=== PATIENT | female | born 1950 | race Caucasian/White ===

== ENCOUNTER 2017-08-08 09:26 | Day surgery (SDC) | payer MEDICARE ==
[2017-08-07 08:41] VITALS: BMI 36.3
[~2017-08-08 09:26] MED LIST: ALBUTEROL NEB (CONC) 2.5 MG/0.5 ML INHALATION ONE; ATROPINE SULFATE 0.4 MG/ML 1 ML VIAL IM ONE; LACTATED RINGERS 1,000 ML IV ONE; LACTATED RINGERS 1,000 ML IV SCH; LIDOCAINE 2% (PF) 20 MG/ML 10 ML AMP INHALATION ONE
[2017-08-08 09:51] VITALS: RESP 16; TEMP 97.8
[2017-08-08] MEDS ORDERED: GLYCOPYRROLATE 0.2 MG/ML 2 ML VIAL ONE (10:30)
[2017-08-08] MEDS ORDERED: LIDOCAINE 1% INJ 10MG/ML (20 ML MDV) ONE (10:30)
[2017-08-08] MEDS ORDERED: PROPOFOL 10 MG/ML 20 ML VIAL IV ONE (10:30)
[2017-08-08] MEDS ORDERED: MIDAZOLAM 2 MG/2 ML VIAL ONE (10:30)
[2017-08-08] MEDS ORDERED: KETAMINE 10 MG/ML 20 ML VIAL ONE (10:30)
[2017-08-08] MEDS ORDERED: LIDOCAINE 2% INJ 20 MG/ML INTRATRACH ONE (10:51)
[2017-08-08 11:17] VITALS: BP 121/74; PULSE 83
--- NOTE | 2017-08-08 11:31 | PCN ---
PROCEDURE NOTE PROCEDURE: Bronchoscopy, airway examination, therapeutic lavage, BAL right middle lobe. PREOPERATIVE DIAGNOSIS: Cough. POSTOPERATIVE DIAGNOSIS: Cough and asthma. Operators are Dr. Bruner and Dr. Tucker. The patient's procedure was done in room #2. There was no immediate complication. There was universal timeout. There was informed consent. After the patient was adequately sedated and being fully monitored, the bronchoscope was inserted through the right nostril. It passed through the right nasopharynx into the oropharynx. The hypopharynx was identified and topicalized. The hypopharyngeal structures appeared normal including anterior commissure, true cords, false cords, arytenoids, piriform sinuses, right and left vallecula and epiglottis. After topicalization, the bronchoscope was placed through the glottic opening into the trachea. Trachea appeared normal. Trachea was topicalized. Trachea shazia was sharp. The right and left mainstem were topicalized. Right upper lobe and its 3 segments, right middle lobe and its 2 segments, right lower lobe and its 5 segments, the left upper lobe proper and its 2 segments, the lingual and its 2 segments, and the left lower lobe and its 4 segments all were found to be normal. There was no endobronchial masses or tumors. There was minimal bronchitis. There was minimal bronchial mucosal erythema, hyperemia. There was no dominant mass. No secretions noted. The bronchoscope was then wedged into the right middle lobe. The BAL took place. The patient tolerated the procedure well. The patient will be recovered. The bronchoscope was withdrawn. MMODL / IJN: [id number] /
[2017-08-08 16:22] LABS: RBC, Body Fluid 12850 /uL
== END 2017-08-08 12:08 | disposition home or self-care (01) ==
LOC: ORWHC2ENDO 09:26
PROVIDERS: ATTEND Internal Medicine Critical Care Medicine
DX: R05 Cough (principal); J45.909 Unspecified asthma, uncomplicated; I10 Essential (primary) hypertension; E78.5 Hyperlipidemia, unspecified; K57.92 Diverticulitis of intestine, part unspecified, without perforation or abscess without bleeding; H40.9 Unspecified glaucoma; Z79.899 Other long term (current) drug therapy; Z79.51 Long term (current) use of inhaled steroids; Z79.82 Long term (current) use of aspirin; Z88.0 Allergy status to penicillin; Z88.8 Allergy status to other drugs, medicaments and biological substances; Z91.041 Radiographic dye allergy status
CPT/HCPCS: 94640; 87798 ×4; 87496; 87498; 87529 ×2; 88108; 88305; 89050; 87252; 87502; 87070; 87205; 87116; 87102; 87206; 31624; J2001 ×3; J2250; J0461; J2704

== ENCOUNTER 2018-03-15 10:05 | Day surgery (SDC) | payer MEDICARE ==
[2018-03-13 12:53] VITALS: BMI 34.5
[~2018-03-15 10:05] MED LIST changes: -ALBUTEROL NEB (CONC) 2.5 MG/0.5 ML INHALATION ONE; -ATROPINE SULFATE 0.4 MG/ML 1 ML VIAL IM ONE; -LACTATED RINGERS 1,000 ML IV ONE; -LIDOCAINE 2% (PF) 20 MG/ML 10 ML AMP INHALATION ONE
[2018-03-15] MEDS ORDERED: LIDOCAINE 1% 20 ML VIAL (10MG/ML) FOR IV START INTRADERMA ONE (11:00)
[2018-03-15 11:02] VITALS: TEMP 98.6
[2018-03-15] MEDS ORDERED: LIDOCAINE 1% INJ 10MG/ML (20 ML MDV) ONE (11:06)
[2018-03-15] MEDS ORDERED: PROPOFOL 10 MG/ML 20 ML VIAL IV ONE (11:06)
--- NOTE | 2018-03-15 11:28 | P.PCN ---
Date of Procedure: 03/15/18 Procedure(s) Performed: Brief history: Patient is a pleasant 68-year-old white female, scheduled for an elective upper endoscopy as well as colonoscopy as a part of evaluation of epigastric pain, intermittent rectal bleeding for the last 6 months duration. Procedure performed: Esophagogastroduodenoscopy with biopsy Colonoscopy Preoperative diagnosis: Epigastric pain Intermittent rectal bleeding Anesthesia: MAC Procedure: After informed consent was obtained from the patient was brought into the endoscopy unit and IV sedation was administered by anesthesia under continuous monitoring. Initially upper endoscopy was done. The Olympus GF 160 video endoscope was inserted inserted into the mouth and esophagus intubated without any difficulty and was gradually advanced into the stomach and duodenum and carefully examined. The bulb and second part of the duodenum appeared normal. The scope was then withdrawn into the stomach adequately insufflated with air and upon careful examination the antrum and body, cardia and fundus appeared normal. The scope was then withdrawn into the esophagus. The GE junction was located at 40 cm to the incisors. It appeared regular with no erythema erosions or ulcerations. Rest of the esophagus appeared normal. Patient tolerated the procedure well. At this time the patient continued to remain sedation. Initial digital rectal examination was normal. Olympus CF 160 video colonoscope was then inserted into the rectum and gradually advanced to the cecum without any difficulty. Careful examination was performed as the scope was gradually being withdrawn. The prep was excellent. The cecum, ascending colon, transverse colon, descending colon, sigmoid colon and rectum appeared normal. Anastomosis site was located at 50 cm from the anal verge. Scattered sigmoid diverticula seen. Retroflexion was performed in the rectum and small internal hemorrhoids were noted. Patient tolerated the procedure well. Impression: 1. Upper endoscopy revealed mild antral gastritis but no evidence of esophagitis or peptic ulcer disease 2. Colonoscopy revealed scattered sigmoid diverticulosis and small internal hemorrhoids. Recommendations: Findings of this examination were discussed with the patient as well as her family. She was advised to follow up the biopsy results. She can have a repeat screening colonoscopy in 10 years.
[2018-03-15 11:47] VITALS: BP 155/72; PULSE 70; RESP 18
--- NOTE | 2018-03-19 02:29 | CDI ---
Outpatient Documentation Clarification Form Date: 03/19/2018 CDS/[employer] Name: Trinidad Suárez Phone: If any questions, call Jasmyn Donato Cull Grader at [phone] Patient Name: Meghan Gates Admit Date: 03/15/2018 Discharge Date: 03/15/2018 ATTENTION: The [facility] Coding Staff appreciate your assistance in clarifying documentation. Please respond to the clarification below the line at the bottom and electronically sign. The [facility] Coding staff will review the response and follow-up if needed. Please note: Queries are made part of the Legal Health Record. If you have any questions, please contact the Cull Grader. Dear Juli Ellis In operative report, procedure performed states Esophagogastroduodenoscopy with biopsy, but in procedure description no supporting documentation for biopsy performed. Please clarify whether Esophagogastroduodenoscopy with biopsy has been performed, if done please add to the operative report. Thank you for your kind consideration. NARENDRA
--- NOTE | 2018-03-26 18:23 | CDI ---
Outpatient Documentation Clarification Form Date: 03/26/18 CDS/Pul[employer] Man Name: Christiana Olsen Phone: If any questions, call Jasmyn Donato Cleaning Supervisor at [phone] Patient Name: Meghan Gates Admit Date: 03/15/18 Discharge Date: 03/15/18 ATTENTION: The [facility] Coding Staff appreciate your assistance in clarifying documentation. Please respond to the clarification below the line at the bottom and electronically sign. The [facility] Coding staff will review the response and follow-up if needed. Please note: Queries are made part of the Legal Health Record. If you have any questions, please contact the Cleaning Supervisor. Dear Dr. Melendrez, What is the source of the GI bleed? Multiple coding resources that we are required to follow, state that the physician should identify a source and the certified coder may not assume. ICD-9-CM [facility], Second 2006, Page 13: Question: In the 2004 issue of [facility], it was advised that "the combination codes describing hemorrhage should not be assigned unless the physician identifies a causal relationship." This information superseded previous advice provided in 1991. If, however, a patient presents with GI bleeding where only one possible source is found, can the certified coder assume a causal relationship between the GI bleeding and the single finding (ulcer, gastritis, diverticulitis, etc.) or must the physician explicitly state that the GI bleeding is due to the single finding? Answer: The certified coder should not assume a causal relationship between gastrointestinal bleeding and a single finding such as a gastric ulcer, gastritis, diverticulitis , etc. The physician must identify the source of the bleeding and link the clinical findings from the colonoscopy or upper endoscopy, since these findings may be unrelated to the bleeding. ICD-9-CM, 2004, Page: 17-18: Question: A patient presents with GI bleeding and undergoes both an EGD with biopsy and colonoscopy. Results reveal multiple findings including gastritis, duodenitis, esophagitis, diverticulosis (of colon), and colon polyp. The physician does not link the GI bleeding with these conditions nor does the physician state that the GI bleeding is not due to these conditions. What is the correct code assignment for these conditions? Answer: Query the physician to determine whether the GI bleeding was caused by any of the endoscopic findings (e.g., gastritis, duodentitis, esophagitis, diverticulosis, and/or polyp). Assign code 578.9, Hemorrhage of gastrointestinal tract, unspecified, as the principal diagnosis, if the physician does not establish a causal relationship between the gastrointestinal bleeding and the multiple findings. Codes 535.50, Unspecified gastritis and gastroduodenitis, without hemorrhage, 535.60, Duodenitis, without hemorrhage, 530.10, Esophagitis, unspecified, 562.10, Diverticulosis of colon (without mention of hemorrhage), and 211.3, Benign neoplasm of other parts of digestive system, Colon, should be assigned as additional diagnoses. The combination codes describing hemorrhage should not be assigned unless the physician identifies a causal relationship. If the documentation provides more specific information and the bleeding is linked to a specific condition, assign the appropriate combination code with bleeding. Assign code 45.16, Esophagogastroduodenoscopy [EGD] with closed biopsy, and code 45.23, Colonoscopy , for the procedures performed. This current information supersedes advice previously published in [facility], Second Quarter 1991, pages 8-9. Thank you for your kind consideration. Bleeding likely from internal hemorrhoids Dr.K.Tumma MACKEY
== END 2018-03-15 12:24 | disposition home or self-care (01) ==
LOC: ORWHC2ENDO 10:05
PROVIDERS: ATTEND Internal Medicine Gastroenterology
DX: K29.50 Unspecified chronic gastritis without bleeding (principal); B96.81 Helicobacter pylori [H. pylori] as the cause of diseases classified elsewhere; K57.30 Diverticulosis of large intestine without perforation or abscess without bleeding; K64.8 Other hemorrhoids; K21.9 Gastro-esophageal reflux disease without esophagitis; Z98.0 Intestinal bypass and anastomosis status; I10 Essential (primary) hypertension; E78.5 Hyperlipidemia, unspecified; J45.909 Unspecified asthma, uncomplicated; Z79.899 Other long term (current) drug therapy; Z79.51 Long term (current) use of inhaled steroids; Z79.1 Long term (current) use of non-steroidal anti-inflammatories (NSAID); Z79.2 Long term (current) use of antibiotics; Z88.0 Allergy status to penicillin; Z88.8 Allergy status to other drugs, medicaments and biological substances; Z91.041 Radiographic dye allergy status
CPT/HCPCS: 88305; 88342; 45378; 43239; J2001; J2704

== ENCOUNTER 2018-10-02 08:40 | Inpatient (IN) | payer MEDICARE ==
[2018-10-02] MEDS ORDERED: IPRATROPIUM-ALBUTEROL 3 ML NEB INHALATION STA (09:01)
[2018-10-02] MEDS ORDERED: SODIUM CHLORIDE 0.9% 500 ML 500 ML IV STA (09:01)
[2018-10-02] MEDS ORDERED: SODIUM CHLORIDE 0.9% 1,000 ML IV STA (09:01)
--- NOTE | 2018-10-02 10:18 | XR ---
EXAMINATION TYPE: XR chest 2V DATE OF EXAM: 10/02/2018 COMPARISON: NONE HISTORY: Difficulty breathing TECHNIQUE: Frontal and lateral views of the chest are obtained. FINDINGS: Interstitial prominence is seen throughout. Heart is mildly enlarged and there is tortuosi ty of the descending thoracic aorta. No sizable pleural effusion or pneumothorax is seen. No focal co nsolidation. IMPRESSION: Diffuse interstitial prominence may relate to mild interstitial edema that in combinatio n with cardiomegaly may be on the basis of congestive heart failure or alternatively interstitial pro minence could relate to atypical pneumonitis.
[2018-10-02 10:23] LABS: Basophils # (A) 0.1 k/uL (0-0.2); Basophils % (A) 1 %; Eosinophils # (A) 0.2 k/uL (0-0.7); Eosinophils % (A) 3 %; Lymphocytes # (A) 1.4 k/uL (1.0-4.8); Lymphocytes % (A) 21 %; MCH 28.8 pg (25.0-35.0); MCHC 31.7 g/dL (31.0-37.0); MCV 90.9 fL (80.0-100.0); Mean Platelet Volume 8.2; Monocytes # (A) 0.3 k/uL (0-1.0); Monocytes % (A) 5 %; Neutrophils # (A) 4.6 k/uL (1.3-7.7); Neutrophils % (A) 68 %; Platelet Count 205 k/uL (150-450); RBC 4.51 m/uL (3.80-5.40); RDW 14.1 % (11.5-15.5); WBC 6.7 k/uL (3.8-10.6)
[2018-10-02 10:30] LABS: ALT 71 U/L (9-52); AST 45 U/L (14-36); Albumin 3.8 g/dL (3.5-5.0); Alkaline Phosphatase 108 U/L (38-126); Anion Gap 11 mmol/L; Blood Urea Nitrogen 19 mg/dL (7-17); Carbon Dioxide 23 mmol/L (22-30); Chloride 109 mmol/L (98-107); Glucose 101 mg/dL (74-99); Magnesium 2.1 mg/dL (1.6-2.3); Sodium 143 mmol/L (137-145); Total Bilirubin 0.8 mg/dL (0.2-1.3); Total Protein 6.6 g/dL (6.3-8.2)
[2018-10-02 10:38] LABS: Partial Thromboplastin Time 21.7 sec (22.0-30.0); Prothrombin Time 10.5 sec (9.0-12.0)
[2018-10-02] MEDS ORDERED: DILTIAZEM DRIP BOLUS FROM BAG 1 MG SOLN IV ONE ×2 (10:42→13:33)
--- NOTE | 2018-10-02 10:42 | ED ---
SOB HPI - General Chief Complaint: Shortness of Breath Stated Complaint: XENIA Time Seen by Provider: 10/02/18 09:01 Source: patient, RN notes reviewed, old records reviewed Mode of arrival: ambulatory Limitations: no limitations - History of Present Illness Initial Comments: This is a 68-year-old female the ER for evaluation of severe shortness of breath 2-3 days. Progressively worsening. Patient has had a progressive COPD exacerbation asthma exacerbation and is not getting better for a few weeks now. She is doing increasing breathing treatments with no help. Last night noticed that she is having increasing shortness of breath mild diaphoresis no chest pain noted. Patient has no other recent change in medications denies drug or alcohol abuse. No fevers MD Complaint: shortness of breath, "asthma attack" -: days(s) (1) Severity: moderate Severity scale (1-10): 7 Consistency: constant Improves With: rest, bronchodilators Worsens With: exertion Known History Of: COPD, asthma Context: recent URI, anxiety Associated Symptoms: palpitations Treatments Prior to Arrival: none - Related Data Home Medications Medication Instructions Recorded Confirmed Albuterol Inhaler [Ventolin Hfa 2 puff INHALATION RT-Q4H 09/19/16 10/02/18 Inhaler] Albuterol Nebulized [Ventolin 2.5 mg INHALATION RT-Q6H PRN 09/19/16 10/02/18 Nebulized] Aspirin [Adult Low Dose Aspirin EC] 81 mg PO DAILY 09/19/16 10/02/18 Meloxicam 15 mg PO DAILY PRN 09/19/16 10/02/18 Montelukast [Singulair] 10 mg PO HS 09/19/16 10/02/18 amLODIPine [Norvasc] 5 mg PO DAILY 09/19/16 10/02/18 Biotin-7500mcg 7,500 mcg PO DAILY 08/07/17 10/02/18 Hydrochlorothiazide 12.5 mg PO DAILY 08/07/17 10/02/18 Loratadine [Claritin] 10 mg PO DAILY 08/07/17 10/02/18 Vitamin A Acetate [Vitamin A] 10,000 unit SL DAILY 08/07/17 10/02/18 Calcium Carbonate [Calcium] 1,200 mg PO DAILY 03/13/18 10/02/18 Cholecalciferol [Vitamin D3] 5,000 unit PO DAILY 03/13/18 10/02/18 Clindamycin [Cleocin] 600 mg PO ONCE PRN 03/13/18 10/02/18 Fish Oil/Dha/Epa [Fish Oil 1,200 1 cap PO DAILY 03/13/18 10/02/18 mg Fish Oil] Thera Tears 1 drop BOTH EYES BID PRN 03/13/18 10/02/18 Brimonidine Tartrate [Alphagan P 1 drops BOTH EYES BID 10/02/18 10/02/18 0.2% Ophth Soln] Budesonide/Formoterol Fumarate 2 puff INHALATION RT-BID 10/02/18 10/02/18 [Symbicort 80-4.5 Mcg Inhaler] Omeprazole [PriLOSEC] 20 mg PO AC-BID 10/02/18 10/02/18 Allergies Allergy/AdvReac Type Severity Reaction Status Date / Time atorvastatin [From Lipitor] Allergy joint Verified 10/02/18 10:05 pain/hives Iodinated Contrast- Oral and Allergy Dyspnea Verified 10/02/18 10:05 IV Dye [Iodinated Contrast Media - IV Dye] Penicillins Allergy Dyspnea Verified 10/02/18 10:05 clindamycin AdvReac Nausea Verified 10/02/18 10:05 Review of Systems ROS Statement: Those systems with pertinent positive or pertinent negative responses have been documented in the HPI. ROS Other: All systems not noted in ROS Statement are negative. Past Medical History Past Medical History: Asthma, Eye Disorder, GERD/Reflux, Hyperlipidemia, Hypertension, Neurologic Disorder, Osteoarthritis (OA) Additional Past Medical History / Comment(s): migraines, hx ulcer, hx diverticulitis, hx [place], Hx rheumatic fever, being treated for glaucoma History of Any Multi-Drug Resistant Organisms: None Reported Past Surgical History: Adenoidectomy, Bowel Resection, Breast Surgery, Ear Surgery, Joint Replacement, Orthopedic Surgery, Tonsillectomy Additional Past Surgical History / Comment(s): left ear drum surgery, hu breast reduction, left knee arthroscopy, colonoscopy, LT TKA, BILAT CATARACT SURGERY, GLAUCOMA SX Past Anesthesia/Blood Transfusion Reactions: Motion Sickness, Postoperative Nausea & Vomiting (PONV) Past Psychological History: No Psychological Hx Reported Smoking Status: Never smoker Past Alcohol Use History: Occasional Past Drug Use History: None Reported - Past Family History Sister(s) Family Medical History: Cancer Additional Family Medical History / Comment(s): sister of aneurysm, 3 nieces w/hx. aneurysm General Exam Limitations: no limitations General appearance: alert, in no apparent distress, anxious, in distress Head exam: Present: atraumatic, normocephalic, normal inspection Eye exam: Present: normal appearance, PERRL, EOMI. Absent: scleral icterus, conjunctival injection, periorbital swelling ENT exam: Present: normal exam, mucous membranes moist Neck exam: Present: normal inspection. Absent: tenderness, meningismus, lymphadenopathy Respiratory exam: Present: respiratory distress, wheezes, accessory muscle use, decreased breath sounds, prolonged expiratory. Absent: normal lung sounds bilaterally, rales, rhonchi, stridor Cardiovascular Exam: Present: tachycardia, irregular rhythm, normal heart sounds. Absent: systolic murmur, diastolic murmur, rubs, gallop, clicks GI/Abdominal exam: Present: soft, normal bowel sounds. Absent: distended, tenderness, guarding, rebound, rigid Extremities exam: Present: normal inspection, full ROM, normal capillary refill. Absent: tenderness, pedal edema, joint swelling, calf tenderness Back exam: Present: normal inspection Neurological exam: Present: alert, oriented X3, CN II-XII intact Psychiatric exam: Present: normal affect, normal mood Skin exam: Present: warm, dry, intact, normal color. Absent: rash Course Vital Signs 10/02/18 10/02/18 10/02/18 08:41 09:34 09:46 Temperature 97.8 F Pulse Rate 124 H 94 118 H Respiratory 22 Rate Blood Pressure 127/91 O2 Sat by Pulse 98 Oximetry 10/02/18 10:13 Temperature Pulse Rate 138 H Respiratory 22 Rate Blood Pressure 115/83 O2 Sat by Pulse 97 Oximetry - Reevaluation(s) Reevaluation #1: 10/02/18 11:26 Medical record is reviewed Reevaluation #2: 10/02/18 11:26 Patient does have improvement with breathing treatment and heart rate control Reevaluation #3: 10/02/18 11:[address] Bruner regarding admitting doctor, requesting [facility], spoke with the 1 regarding admission who is agreeable Medical Decision Making - Medical Decision Making 68 female the ER for evaluation, presenting COPD plus A. fib with RVR, will admit for cardiology and pulmonology evaluation - Lab Data Result diagrams: 10/02/18 09:45 10/02/18 09:45 Lab Results 10/02/18 10/02/18 10/02/18 Range/Units 09:45 09:45 09:45 WBC 6.7 (3.8-10.6) k/uL RBC 4.51 (3.80-5.40) m/uL Hgb 13.0 (11.4-16.0) gm/dL Hct 41.0 (34.0-46.0) % MCV 90.9 (80.0-100.0) fL MCH 28.8 (25.0-35.0) pg MCHC 31.7 (31.0-37.0) g/dL RDW 14.1 (11.5-15.5) % Plt Count 205 (150-450) k/uL Neutrophils % 68 % Lymphocytes % 21 % Monocytes % 5 % Eosinophils % 3 % Basophils % 1 % Neutrophils # 4.6 (1.3-7.7) k/uL Lymphocytes # 1.4 (1.0-4.8) k/uL Monocytes # 0.3 (0-1.0) k/uL Eosinophils # 0.2 (0-0.7) k/uL Basophils # 0.1 (0-0.2) k/uL PT (9.0-12.0) sec INR (<1.2) APTT (22.0-30.0) sec Sodium 143 (137-145) mmol/L Potassium 4.0 (3.5-5.1) mmol/L Chloride 109 H (98-107) mmol/L Carbon Dioxide 23 (22-30) mmol/L Anion Gap 11 mmol/L BUN 19 H (7-17) mg/dL Creatinine 0.60 (0.52-1.04) mg/dL Est GFR (CKD-EPI)AfAm >90 (>60 ml/min/1.73 sqM) Est GFR (CKD-EPI)NonAf >90 (>60 ml/min/1.73 sqM) Glucose 101 H (74-99) mg/dL Calcium 9.0 (8.4-10.2) mg/dL Magnesium 2.1 (1.6-2.3) mg/dL Total Bilirubin 0.8 (0.2-1.3) mg/dL AST 45 H (14-36) U/L ALT 71 H (9-52) U/L Alkaline Phosphatase 108 (38-126) U/L Total Creatine Kinase 51 (30-135) U/L CK-MB (CK-2) 0.8 (0.0-2.4) ng/mL CK-MB (CK-2) Rel Index 1.6 Troponin I <0.012 (0.000-0.034) ng/mL NT-Pro-B Natriuret Pep pg/mL Total Protein 6.6 (6.3-8.2) g/dL Albumin 3.8 (3.5-5.0) g/dL 10/02/18 10/02/18 Range/Units 09:45 09:45 WBC (3.8-10.6) k/uL RBC (3.80-5.40) m/uL Hgb (11.4-16.0) gm/dL Hct (34.0-46.0) % MCV (80.0-100.0) fL MCH (25.0-35.0) pg MCHC (31.0-37.0) g/dL RDW (11.5-15.5) % Plt Count (150-450) k/uL Neutrophils % % Lymphocytes % % Monocytes % % Eosinophils % % Basophils % % Neutrophils # (1.3-7.7) k/uL Lymphocytes # (1.0-4.8) k/uL Monocytes # (0-1.0) k/uL Eosinophils # (0-0.7) k/uL Basophils # (0-0.2) k/uL PT 10.5 (9.0-12.0) sec INR 1.0 (<1.2) APTT 21.7 L (22.0-30.0) sec Sodium (137-145) mmol/L Potassium (3.5-5.1) mmol/L Chloride (98-107) mmol/L Carbon Dioxide (22-30) mmol/L Anion Gap mmol/L BUN (7-17) mg/dL Creatinine (0.52-1.04) mg/dL Est GFR (CKD-EPI)AfAm (>60 ml/min/1.73 sqM) Est GFR (CKD-EPI)NonAf (>60 ml/min/1.73 sqM) Glucose (74-99) mg/dL Calcium (8.4-10.2) mg/dL Magnesium (1.6-2.3) mg/dL Total Bilirubin (0.2-1.3) mg/dL AST (14-36) U/L ALT (9-52) U/L Alkaline Phosphatase (38-126) U/L Total Creatine Kinase (30-135) U/L CK-MB (CK-2) (0.0-2.4) ng/mL CK-MB (CK-2) Rel Index Troponin I (0.000-0.034) ng/mL NT-Pro-B Natriuret Pep 1400 pg/mL Total Protein (6.3-8.2) g/dL Albumin (3.5-5.0) g/dL - EKG Data -: EKG Interpreted by Me (EKG shows A. fib with RVR rate 134, QRS 74, QTC 498) - Radiology Data Radiology results: report reviewed (Chest x-rays negative for acute disease), image reviewed Critical Care Time Critical Care Time: Yes Total Critical Care Time: 31 Disposition Clinical Impression: Acute exacerbation of chronic obstructive airways disease, Atrial fibrillation with RVR Disposition: ADMITTED IP TO THIS HOSP Condition: Fair Is patient prescribed a controlled substance at d/c from ED?: No Referrals: Tico Boston MD [Primary Care Provider] - 1-2 days
[2018-10-02 10:44] LABS: Creatine Kinase 51 U/L (30-135)
[2018-10-02] MEDS ORDERED: DILTIAZEM 50 MG in SODIUM CHLORIDE 0.9% 40 ML IV SCH (10:45)
[2018-10-02 10:57] LABS: Creatine Kinase MB 0.8 ng/mL (0.0-2.4); Troponin I <0.012 ng/mL (0.000-0.034)
[2018-10-02] MEDS ORDERED: methylPREDNISolone SOD SUCCI 125 MG/2 ML VIAL IV STA (11:13)
[2018-10-02] MEDS ORDERED: HEPARIN SODIUM,PORCINE 5,000 UNIT/ML 1 ML VIAL IV PRN (11:24)
[2018-10-02] MEDS ORDERED: HEPARIN SODIUM,PORCINE 5,000 UNIT/ML 1 ML VIAL IV ONE (11:24)
[2018-10-02] MEDS: SODIUM CHLORIDE 0.9% 1,000 ML IV SCH ×2 (11:37→21:57)
[2018-10-02] MEDS ORDERED: IPRATROPIUM-ALBUTEROL 3 ML NEB INHALATION SCH (12:00)
[2018-10-02] MEDS: HEPARIN SOD,PORK IN 0.45% NACL 25,000 UNIT in 0.45% NACL 1 250ML.BAG IV SCH (12:09)
[2018-10-02] MEDS: DILTIAZEM 50 MG in SODIUM CHLORIDE 0.9% 40 ML IV SCH ×2 (14:42→21:44)
[2018-10-02] MEDS ORDERED: IPRATROPIUM-ALBUTEROL 3 ML NEB INHALATION PRN (14:51)
[2018-10-02 15:05] VITALS: BMI 34.0
[2018-10-02] MEDS: METOPROLOL TARTRATE 50 MG TAB PO SCH ×2 (15:47→21:45)
--- NOTE | 2018-10-02 17:56 | CONS ---
CONSULTATION This is a 68-year-old lady with a known diagnosis of bronchial asthma, hypertensive cardiovascular disease who sees Dr. Bailon in the outpatient setting. She was last seen over a year ago. She came into the hospital with complaints of increasing shortness of breath. Her main complaint was really shortness of breath that seemed to have slowly gotten worse since about 2-3 days. She also had some wheezing and exacerbation of asthma, but that seems to have settled down, but she continues to have shortness of breath and was found to be in atrial fibrillation with rapid ventricular rate and I was asked to see her in this regard. She denies any chest pain. Her palpitations have improved. Her breathing has also improved. At the time of my evaluation she is resting comfortably with her by her side. PAST MEDICAL HISTORY: 1. Bronchial asthma. 2. Hypertension. 3. No documented evidence of prior atrial fibrillation. 4. She does have gastroesophageal reflux disease, hyperlipidemia, history of osteoarthritis. 5. She is status post cataract surgery, left total knee arthroplasty. She also had some tonsillectomy, breast reduction surgery. MEDICATIONS: At home include Singulair 10 mg daily, amlodipine 5 mg daily, hydrochlorothiazide 12.5 mg daily. She also takes some Ventolin inhalers as well as some fish oil, omeprazole, and aspirin 81 mg daily. ALLERGIES: Allergic to IODINE, PENICILLIN, AND CLINDAMYCIN. THERE IS ALSO A QUESTIONABLE ALLERGY TO LIPITOR. PHYSICAL EXAMINATION: Blood pressure is 130/70, pulse rate is about 110 per minute, irregularly irregular HEENT is unremarkable. Fundus was not examined by me. Neck is supple. There is JVD at 1 cm. No carotid bruit. Heart exam reveals S1, S2 heard normally with irregular rhythm. There is a short systolic murmur. Lungs reveal fair air entry bilateral lung ashraf. Abdomen is soft, nontender. Lower extremities reveal palpable pulses but diminished. Central nervous system is grossly within normal limits. IMPRESSION: 1. Atrial fibrillation, new onset with rapid ventricular rate. 2. Hypertension. 3. Bronchial asthma with mild exacerbation. 4. The patient is not a smoker. RECOMMENDATIONS: I am recommending that we give additional bolus of Cardizem 7.5 and increase the drip to 7.[address] on Lopressor 50 mg b.i.d., continue heparin drip for now. We will optimize rate control and heparinization. I will also obtain echocardiogram tomorrow and based on findings, I will make further recommendations. Given the fact she is having somewhat of a sudden onset of shortness of breath, I will recommend a D- dimer to rule out pulmonary embolism. We will continue heparin in the interim. Discussed my thoughts in detail with the patient. Thank you very much for the consult. HOMERO / TRACEY: [id number] /
[2018-10-02] MEDS ORDERED: methylPREDNISolone SOD SUCCI 125 MG/2 ML VIAL IV SCH (18:00)
--- NOTE | 2018-10-02 18:26 | CONS ---
CONSULTATION DATE OF SERVICE: 10/02/2018 The patient was seen in the emergency room. This is a 68-year-old female, well known to me. She has a history of chronic bronchial asthma. She sees Dr. Tico roland in [place]. She previously saw Dr. Aguirre in [place]. Anyway, the patient came in with shortness of breath for at least a month now. She has been using her rescue medication very frequently and apparently came in today with increasing shortness of breath and rapid heartbeat. When she got here she was apparently found to have atrial fibrillation with RVR. She was placed on a Cardizem drip and some orders were written for metoprolol. I believe that the problem was really not her asthma at all, but rather it was the excessive use of the albuterol, which probably triggered her atrial fibrillation. The patient just assumed that shortness of breath was related to the asthma. Anyway, she was in the emergency room with her at her side. The patient was feeling better when I saw her in the emergency room. HOME MEDICATIONS: Included: 1. Albuterol inhaler and nebulized albuterol. 2. Aspirin. 3. Mobic. 4. Singulair. 5. Amlodipine. 6. Biotin. 7. Hydrochlorothiazide. 8. Loratadine. 9. Vitamin A. 10.Calcium carbonate. 11.Vitamin D3. 12.Clindamycin. 13.Fish oil. 14.Eye drops. 15.Symbicort. 16.Omeprazole. The Symbicort also may have triggered the atrial fibrillation, since it contains a long- acting beta agonist, i.e., formoterol. ALLERGIES: INCLUDE: 1. LIPITOR. 2. IV DYE. 3. PENICILLIN. 4. CLINDAMYCIN. MEDICAL HISTORY: Includes: 1. Asthma. 2. Gastroesophageal reflux disease. 3. Hyperlipidemia. 4. Hypertension. 5. Osteoarthritis. 6. Migraine cephalgia. 7. Ulcer disease. 8. Diverticular disease. 9. Rheumatic fever. SURGICAL HISTORY: Includes, among other things: 1. Adenoidectomy. 2. Bowel resection. 3. Breast surgery. 4. Eye surgery. 5. Joint replacement. 6. Tonsillectomy. 7. She has had other surgical procedures as well. SOCIAL HISTORY: Negative for tobacco or illicit drug use. She drinks very infrequently. FAMILY HISTORY: Positive for aneurysm and cancer. REVIEW OF SYSTEMS: CONSTITUTIONAL: Negative. NEUROLOGIC: Negative. HEENT: Negative. CARDIOVASCULAR: Rapid heartbeat, palpitations. PULMONARY: Shortness of breath. GI/: Negative. RHEUMATOLOGIC/IMMUNOLOGIC: Negative. ENDOCRINOLOGIC: Negative. DERMATOLOGIC: Negative. PHYSICAL EXAMINATION: Current vital signs are reviewed. Her temperature is normal at 97.8. Heart rate has been as low as 94 and as high as 138. Respiratory rate 18, blood pressure 111/91, mean 97. Two-liter saturation 95%. She appears in no acute distress. Still in atrial fibrillation with RVR. HEENT examination is grossly unremarkable. NECK: Supple. Full range of motion. No adenopathy. Cardiovascular examination reveals irregular rhythm and rate. Heart rate is 138. No murmur. Lungs reveal relatively clear breath sounds; maybe a few scattered mild crackles. ABDOMEN: Soft. Bowel sounds are heard. Extremities are intact. No cyanosis, clubbing or edema. LABS: Reviewed. White count 6.7, hemoglobin 13, hematocrit 41, platelet count 205,000. PT and INR were 10.5 and 1.0. PTT was 21.7. D-dimer 0.75. Sodium and potassium normal. Chloride 109, CO2 23. Anion gap was 11. BUN and creatinine were 19 and 0.6. AST was 45. ALT was 71. N-terminal proBNP was 1400. Chest x-ray showed some diffuse interstitial edema consistent with mild fluid overload. There was some mild cardiomegaly as well. Medications are reviewed. We discontinued the steroids. We use the updrafts primarily as needed. The patient should be placed on some Lasix. The patient is currently on a Cardizem drip at 10 mg/hour. ASSESSMENT: 1. Rapid heartbeat with palpitations, fluttering and shortness of breath, likely related to underlying atrial fibrillation with rapid ventricular response and mild fluid overload, possibly triggered by excessive use of short-acting beta agonist as well as long-acting beta agonist. 2. Rule out intrinsic cardiac disease. 3. History of chronic bronchial asthma, which I believe is relatively inactive at this time. 4. History of gastroesophageal reflux disease. 5. History of hyperlipidemia. 6. History of hypertension. 7. History of seizure disorder. 8. History of migraine cephalgia. 9. History of glaucoma. 10.Previous history of rheumatic fever. 11.Multiple previous surgical procedures. PLAN: Steroids are reduced and discontinued altogether. The patient's updrafts will be used only as needed. We should add back the Singulair but hold on the Symbicort for now. The patient will be seen by Cardiology. The patient is currently on a Cardizem drip for her atrial fibrillation. No additional recommendations are made. Will continue to follow closely. Prognosis is guarded. MMODL / IJN: [id number] /
[2018-10-02] MEDS ORDERED: MELOXICAM 7.5 MG TAB PO PRN (19:49)
[2018-10-02] MEDS ORDERED: ARTIFICIAL TEARS-HYPROMELLOSE DROPS 15 ML BTL BOTH EYES PRN (19:49)
[2018-10-02] MEDS ORDERED: ALPRAZolam 0.25 MG TAB PO PRN (19:51)
[2018-10-02] MEDS ORDERED: MELATONIN 3 MG TABLET PO PRN (19:51)
[2018-10-02] MEDS ORDERED: HYDROcodone/APAP 5-325MG 1 EACH TAB PO PRN (19:51)
[2018-10-02] MEDS ORDERED: ACETAMINOPHEN TAB 500 MG TAB PO PRN (19:51)
[2018-10-02] MEDS: BUDESONIDE 1 MG/2 ML NEBU INHALATION SCH (20:49)
[2018-10-02] MEDS: FORMOTEROL FUMARATE 20 MCG/2 ML NEBU INHALATION SCH (20:49)
[2018-10-02] MEDS: IPRATROPIUM-ALBUTEROL 3 ML NEB INHALATION SCH (20:55)
[2018-10-02 20:59] LABS: Glucose,Whole Blood 140 mg/dL (75-99)
[2018-10-02] MEDS: methylPREDNISolone SOD SUCCI 125 MG/2 ML VIAL IV SCH ×2 (21:43→23:22)
[2018-10-02] MEDS: BRIMONIDINE TARTRATE 0.2% DROPS 5 ML BTL BOTH EYES SCH (21:45)
[2018-10-02] MEDS: MONTELUKAST 10 MG TAB PO SCH (21:45)
[2018-10-02 21:49] LABS: Appearance,Urine Clear (Clear); Bilirubin,Urine Negative (Negative); Blood,Urine Negative (Negative); Color,Urine Yellow; Glucose,Urine (UA) Negative (Negative); Ketones,Urine Trace (Negative); Leukocyte Esterase,Urine Negative (Negative); Nitrite,Urine Negative (Negative); PH, Urine 5.5 (5.0-8.0); Protein,Urine Trace (Negative); Specific Gravity,Urine 1.019 (1.001-1.035); Urobilinogen,Urine <2.0 mg/dL (<2.0)
[2018-10-02] MEDS: INSULIN ASPART 100 UNIT/ML 1 ML 10 ML VIAL SQ SCH (22:02)
--- NOTE | 2018-10-02 22:47 | HP ---
HISTORY AND PHYSICAL CHIEF COMPLAINTS: Shortness of breath and palpitation. HISTORY OF PRESENT ILLNESS: This 68-year-old woman with a past medical history of multiple medical problems, including history of asthma, history of GERD, hypertension, hyperlipidemia, history of DJD, history of adenoidectomy, history of bowel resection, being followed by Dr. Tico Boston as well as Dr. Bruner in the outpatient setting, was complaining of shortness of breath. The patient came to [facility] with increasing shortness of breath. The patient was found to be in atrial fibrillation with fast ventricular rate. The patient was started on Cardizem drip at 5, subsequent increased to 7.5. The patient was also given beta blockers. Cardiology and Dr. Bruner are following the patient closely at this time. The patient also had vague chest pain in the anterior part of the chest. Patient apparently had negative stress test previously. Records are not available at this time. There is no history of any fever, rigor or chills. No history of headache, loss of consciousness, seizures. PAST MEDICAL HISTORY: 1. Asthma. 2. GERD. 3. Hyperlipidemia. 4. Hypertension. 5. History of DJD. 6. History of migraine. 7. Adenoidectomy. 8. Bowel resection. 9. History of motion sickness. HOME MEDICATIONS: 1. Norvasc 5 mg p.o. daily. 2. Vitamin A 10,000 daily. 3. Thera Tears 1 drop both eyes b.i.d. 4. Prilosec 20 mg before meals b.i.d. 5. Singulair 10 mg at bedtime. 6. Meloxicam 15 mg p.o. daily p.r.n. 7. Claritin 10 mg p.o. daily. 8. Hydrochlorothiazide 12.5 mg positive. 9. Fish oil 1 p.o. daily. 10.Cleocin 600 mg p.o. daily p.r.n. 11.Vitamin D3 5000 units. 12.Calcium 1200 mg p.o. daily. 13.Symbicort 80/4.5 two puffs b.i.d. 14.Alphagan 0.2% one drop both eyes b.i.d. 15.Biotin 7.5 g mg p.o. daily. 16.Aspirin 81 mg. 17.Ventolin 2.5 q.6 p.r.n. 18.Ventolin HFA 2 puffs q.4 p.r.n. ALLERGIES: 1. ALCOHOL. 2. LIPITOR. 3. CHOCOLATE FLAVOR. 4. CORN. 5. CORN SYRUP. 6. IODINATED CONTRAST. 7. CLINDAMYCIN. 8. TUNA FISH. FAMILY HISTORY: History of cancer. Sister of aneurysm. SOCIAL HISTORY: No history of smoking. No history of alcohol intake. REVIEW OF SYSTEMS: ENT: No diminished hearing. No diminished vision. CARDIOVASCULAR SYSTEM: As mentioned earlier. RESPIRATORY SYSTEM: As mentioned earlier. GI: No nausea, vomiting. : No dysuria or retention. NERVOUS SYSTEM: No numbness, weakness. ALLERGY/IMMUNOLOGY: No asthma, hayfever. MUSCULOSKELETAL: As mentioned earlier. HEMATOLOGY/ONCOLOGY: No history of anemia. ENDOCRINE: No history of diabetes, hypothyroidism. CONSTITUTIONAL: As mentioned earlier. DERMATOLOGY: Negative. RHEUMATOLOGY: Negative. PSYCHIATRY: As mentioned earlier. PHYSICAL EXAMINATION: Patient alert and oriented x3. Pulse is 122, blood pressure 111/91, respiration 18, temperature normal, pulse ox 95% on 2 L. HEENT: Conjunctivae normal. Oral mucosa moist. NECK: No jugular venous distention. No carotid bruit. No lymph node enlargement. CARDIOVASCULAR SYSTEM: S1, S2 irregular. Tachycardic. RESPIRATORY SYSTEM: Breath sounds diminished at the bases. Breathing efforts are markedly increased. Bilateral scattered rhonchi and expiratory wheezing and a few crackles. ABDOMEN: Soft, non-tender. No mass palpable. LEGS: No edema. No swelling. NERVOUS SYSTEM: Higher functions as mentioned earlier. Moves all 4 limbs. No focal motor or sensory deficit. LYMPHATICS: No lymph node palpable in neck, axillae or groin. SKIN: No ulcer, rash, bleeding. LABS: CBC within normal limits. D-dimer is 0.75. Other labs are noted. AST and ALT noted. The chest x-ray shows diffuse interstitial prominence related to interstitial edema. EKG showed atrial fibrillation with a fast ventricular rate. Other labs are noted. ASSESSMENT: 1. Shortness of breath with possible bronchial asthma, acute exacerbation, with acute purulent tracheobronchitis. 2. Atrial fibrillation with a fast ventricular rate. 3. Chest pain for evaluation, possibly related to bronchial asthma exacerbation; rule out coronary artery disease. 4. History of gastroesophageal reflux disease. 5. Hypertension. 6. Hyperlipidemia. 7. History of degenerative joint disease. 8. History of migraines. 9. Diverticulitis. 10.History of [place] dance and rheumatic fever. 11.History of glaucoma. 12.History of bowel resection. RECOMMENDATIONS AND DISCUSSION: In this 68-year-old woman who presented with multiple medical problems, we will monitor the patient closely, continue the current medications, continue with symptomatic treatment. Otherwise as this time I recommend intensive bronchodilators and treatment with IV steroids, empiric antibiotics. Follow the patient closely with Cardiology. Prognosis is guarded because of the multiple complex medical issues. Further recommendations to follow. See orders for further details. Home medication will be continued. DVT prophylaxis. A copy of this dictation is being forwarded to Dr. Raza Boston as well. HOMERO / ALESSION: [id number] /
[2018-10-03] MEDS: DILTIAZEM 50 MG in SODIUM CHLORIDE 0.9% 40 ML IV SCH ×5 (03:30→20:20)
[2018-10-03] MEDS: HEPARIN SOD,PORK IN 0.45% NACL 25,000 UNIT in 0.45% NACL 1 250ML.BAG IV SCH (05:56)
[2018-10-03 06:00] LABS: Glucose,Whole Blood 142 mg/dL (75-99)
[2018-10-03] MEDS: INSULIN ASPART 100 UNIT/ML 1 ML 10 ML VIAL SQ SCH ×4 (06:02→21:46)
[2018-10-03] MEDS: methylPREDNISolone SOD SUCCI 125 MG/2 ML VIAL IV SCH (06:02)
[2018-10-03] MEDS: PANTOPRAZOLE 40 MG TABLET PO SCH (06:03)
[2018-10-03 06:33] LABS: Basophils % (A) 0 %; Eosinophils % (A) 0 %; HCT 41.5 % (34.0-46.0); HGB 12.9 gm/dL (11.4-16.0); Hypochromasia Slight; Lymphocytes % (A) 8 %; MCH 28.8 pg (25.0-35.0); MCHC 31.1 g/dL (31.0-37.0); MCV 92.7 fL (80.0-100.0); Mean Platelet Volume 8.1; Monocytes # (A) 0.2 k/uL (0-1.0); Monocytes % (A) 1 %; Neutrophils # (A) 10.5 k/uL (1.3-7.7); Neutrophils % (A) 90 %; Platelet Count 220 k/uL (150-450); RBC 4.47 m/uL (3.80-5.40); RDW 14.2 % (11.5-15.5); WBC 11.7 k/uL (3.8-10.6)
[2018-10-03 06:39] LABS: Partial Thromboplastin Time 87.4 sec (22.0-30.0)
[2018-10-03] MEDS ORDERED: NON-FORMULARY DRUG (Omeprazole 20 MG) PO SCH (07:30)
[2018-10-03] MEDS: METOPROLOL TARTRATE 50 MG TAB PO SCH ×2 (07:48→20:18)
[2018-10-03] MEDS: CHOLECALCIFEROL 1,000 UNIT TAB PO SCH (07:48)
[2018-10-03] MEDS: HYDROCHLOROTHIAZIDE 12.5 MG CAP PO SCH (07:48)
[2018-10-03] MEDS: ASPIRIN 81 MG PO SCH (07:48)
[2018-10-03] MEDS: CALCIUM CARBONATE 500 MG CHEWABLE PO SCH (07:49)
[2018-10-03] MEDS: LORATADINE 10 MG TAB PO SCH (07:49)
[2018-10-03] MEDS: VITAMIN A 10,000 UNIT CAPSULE PO SCH (07:49)
[2018-10-03] MEDS: BRIMONIDINE TARTRATE 0.2% DROPS 5 ML BTL BOTH EYES SCH ×2 (08:03→20:18)
[2018-10-03] MEDS ORDERED: NON-FORMULARY DRUG (Fish Oil/Dha/Epa [Fish Oil 1,200 Mg Fish Oil] 1 CAP) PO SCH (09:00)
[2018-10-03] MEDS ORDERED: BIOTIN PO SCH (09:00)
[2018-10-03] MEDS ORDERED: amLODIPine 5 MG TAB PO SCH (09:00)
[2018-10-03] MEDS: FORMOTEROL FUMARATE 20 MCG/2 ML NEBU INHALATION SCH (09:34)
[2018-10-03] MEDS: IPRATROPIUM-ALBUTEROL 3 ML NEB INHALATION SCH ×4 (09:34→20:05)
[2018-10-03] MEDS: BUDESONIDE 1 MG/2 ML NEBU INHALATION SCH ×2 (09:34→20:05)
[2018-10-03] MEDS: APIXABAN 5 MG TAB PO SCH ×2 (10:22→20:19)
[2018-10-03 11:31] LABS: Glucose,Whole Blood 143 mg/dL (75-99)
[2018-10-03] MEDS: DILTIAZEM CD 240 MG CAP.ER.24H PO SCH (11:47)
--- NOTE | 2018-10-03 12:37 | ECHOF ---
Referral Reason:afib MEASUREMENTS -------- HEIGHT: 154.9 cm WEIGHT: 81.2 kg BP: 107/77 RVIDd: 3.3 cm (< 3.3) IVSd: 1.3 cm (0.6 - 1.1) LVIDd: 4.0 cm (3.9 - 5.3) LVPWd: 1.2 cm (0.6 - 1.1) IVSs: 1.6 cm LVIDs: 3.3 cm LVPWs: 1.5 cm LA Diam: 4.3 cm (2.7 - 3.8) LAESV Index (A-L): 37.73 ml/m Ao Diam: 3.2 cm (2.0 - 3.7) AV Cusp: 2.2 cm (1.5 - 2.6) EPSS: 0.7 cm AV maxP.66 mmHg AV meanP.37 mmHg RAP: 15.00 mmHg RVSP: 41.80 mmHg MV EF SLOPE: 67.51 mm/s (70 - 150) MV EXCURSION: 1.64 cm (> 18.000) FINDINGS -------- Atrial fibrillation. This was a technically difficult study with suboptimal views. The left ventricular size is normal. There is mild concentric left ventricular hypertrophy. Overa ll left ventricular systolic function is mild-moderately impaired with, an EF between 40 - 45 %. The right ventricle is mildly enlarged. LA is moderately dilated 34-39 ml/m2 The right atrium is normal in size. The right atrium is mildly enlarged. 3 ml of Lumason was utilized for enhancement of images. There is mild aortic valve sclerosis. Trace to mild aortic regurgitation. The mitral valve leaflets are mildly thickened. Mild mitral annular calcification present. Modera te mitral regurgitation is present. Moderate to severe tricuspid regurgitation present. There is mild pulmonary hypertension. The rig ht ventricular systolic pressure, as measured by Doppler, is 41.80mmHg. The pulmonic valve was not well visualized. The aortic root size is normal. The inferior vena cava is dilated with poor inspiratory collapse which is consistent with estimated r ight atrial pressure of 15 mmHg. There is no pericardial effusion. CONCLUSIONS -------- 1. Atrial fibrillation. 2. This was a technically difficult study with suboptimal views. 3. The left ventricular size is normal. 4. There is mild concentric left ventricular hypertrophy. 5. Overall left ventricular systolic function is mild-moderately impaired with, an EF between 40 - 45 %. 6. The right ventricle is mildly enlarged. 7. LA is moderately dilated 34-39 ml/m2 8. The right atrium is normal in size. 9. The right atrium is mildly enlarged. 10. 3 ml of Lumason was utilized for enhancement of images. 11. There is mild aortic valve sclerosis. 12. Trace to mild aortic regurgitation. 13. The mitral valve leaflets are mildly thickened. 14. Mild mitral annular calcification present. 15. Moderate mitral regurgitation is present. 16. Moderate to severe tricuspid regurgitation present. 17. There is mild pulmonary hypertension. 18. The right ventricular systolic pressure, as measured by Doppler, is 41.80mmHg. 19. The pulmonic valve was not well visualized. 20. The aortic root size is normal. 21. The inferior vena cava is dilated with poor inspiratory collapse which is consistent with estimat ed right atrial pressure of 15 mmHg. 22. There is no pericardial effusion. EYEGLASS MAKER: ILSA Salguero
--- NOTE | 2018-10-03 15:14 | PN ---
PROGRESS NOTE DATE OF SERVICE: 10/03/2018 This is a 68-year-old female that we saw in the emergency room yesterday. She has a history of chronic bronchial asthma. Her primary care physician is Dr. Tico Boston down in [place]. She previously saw Dr. Aguirre. She came into the emergency room complaining of shortness of breath. This has been going on for at least a month. She thought it was her asthma that was acting up. I actually see her for her asthma. She started using her short-acting beta agonist very frequently, multiple times a day and it seemed to correlate with her developing rapid heartbeat, palpitations and fluttering in the chest. Anyway, when she arrived to the emergency room finally, she was found to have atrial fibrillation with RVR. She was placed on a Cardizem drip, started on metoprolol, and Cardiology was asked to see the patient. From the pulmonary standpoint, the patient appears to be relatively stable and her lung sounds are clear. She has a history of chronic bronchial asthma, gastroesophageal reflux disease, hyperlipidemia, hypertension, seizure disorder, migraine cephalgia, glaucoma, traumatic fever and previous multiple surgical procedures. Current vital signs include a temperature 97.3, heart rate which is 101 and regular, still in atrial fibrillation, respiratory rate 20, blood pressure 129/64 with a mean 85, room air saturation 96%. Appears in no acute distress. Still in atrial fibrillation. HEENT examination is grossly unremarkable. Mucous membranes are moist. No supplemental oxygen needed. Neck is supple. Full range of motion. No adenopathy. Cardiovascular examination reveals a regular rhythm and rate. S1, S2 normal. No murmur noted. Lungs reveal clear breath sounds. No wheezes or rhonchi. No crackles. Breath sounds equal bilaterally. Abdomen soft, but obese. Bowel sounds are heard. Extremities are intact. No cyanosis, clubbing, or edema. Skin without rash. Neurologic examination is nonfocal. LAB DATA: Reviewed. White count 11.7, hemoglobin 12.9, hematocrit 41.5, and platelet count 220,000. PT 11, INR 1, PTT is 44.2. The rest of the labs look okay. Troponins were negative x2. N terminal proBNP is 1400. Urine was negative. Microbiologic studies are negative. MEDICATIONS ARE: Reviewed. I did away with her short-acting beta agonist yesterday and also did away with her long-acting beta agonist. Currently, she remains on Cardizem. This has been switched to oral Cardizem. The rest of her medications are reviewed. Currently on antibiotics which she has not needed. She is currently on steroids , which she does not need. ASSESSMENT: 1. Atrial fibrillation with rapid ventricular rate, likely triggered by the patient's excessive use of short-acting beta agonists. 2. Asthma, which is currently stable. 3. Rule out intrinsic cardiac disease. 4. History of gastroesophageal reflux disease. 5. History of hyperlipidemia. 6. History of hypertension. 7. History of seizure disorder. 8. History of migraine cephalgia. 9. History of glaucoma. 10.Previous history of rheumatic fever. PLAN: The patient's antibiotics will be discontinued. The steroids will be discontinued. Will limit the use of short-acting and long-acting beta agonist. Cardiology is involved. Will continue to follow. Follow up in the office post discharge. The patient has been switched from IV Cardizem to oral Cardizem. MMODL / IJN: [id number] / NARENDRA
--- NOTE | 2018-10-03 16:14 | PN ---
PROGRESS NOTE Mrs. Gates remains in atrial fibrillation, but the rate is better controlled. She has history of bronchial asthma and recently used a lot of beta agonist and this may have precipitated her atrial fibrillation with RVR. However, her breathing has improved. Ventricular rate is better. Plan is to continue to optimize rate control and we will initiate her on Eliquis 5 mg b.i.d. We will increase the Cardizem drip with an additional bolus and also give her a dose of oral Cardizem, and if the rate is better around 3 p.m. today, we will switch her to oral agents orally and stop the Cardizem drip. I discussed my thoughts in detail with the patient and her . Vitals are stable. S1-S2 heard normally with irregular rhythm. Short systolic murmur noted. Lungs reveal scattered rhonchi. Abdomen is soft. Lower extremities reveal diminished pulses, trace edema. Central nervous system is normal. MMODL / IJN: [id number] /
[2018-10-03 16:41] LABS: Glucose,Whole Blood 138 mg/dL (75-99)
[2018-10-03 17:28] LABS: Hemoglobin A1C 5.4 % (4.0-6.0)
--- NOTE | 2018-10-03 18:48 | PN ---
PROGRESS NOTE DATE OF SERVICE: 10/03/2018 This 68-year-old woman who was admitted with shortness of breath and bronchial asthma, acute exacerbation, also had acute purulent tracheobronchitis. Patient also had atrial fibrillation. No chest pain. No palpitations. No fever. Cardiology is following the patient closely. A 2D echo was done today which showed ejection fraction of 40% to 45%. PHYSICAL EXAMINATION: Alert and oriented x3. The pulse is 83, regular. Blood pressure 104/69, respiration 20, temperature 97.1, pulse ox 94% on room air. HEENT: Conjunctivae normal. NECK: No jugular venous distention. CARDIOVASCULAR SYSTEM: S1, S2 irregular. RESPIRATORY SYSTEM: Breath sounds diminished at the bases. A few rhonchi. ABDOMEN: Soft, non-tender. NERVOUS SYSTEM: No focal deficit. LABS: WBC 11.7, hemoglobin 12.9, glucose 138. ASSESSMENT: 1. Atrial fibrillation with fast ventricular rate, present on admission. 2. Chest pain; possibility of bronchial asthma, acute exacerbation. Rule out coronary artery disease. 3. Acute bronchial asthma exacerbation. 4. History of gastroesophageal reflux disease. 5. Hypertension. 6. Hyperlipidemia. 7. Chronic congestive heart failure with chronic systolic dysfunction, ejection fraction 40% to 45%. 8. History of degenerative joint disease. 9. History of migraine. 10.Diverticulitis. 11.History of [place] dance and rheumatic fever. 12.History of glaucoma. 13.History of bowel resection. RECOMMENDATIONS AND DISCUSSION: I recommend to continue current medication, continue with the monitoring, continue with symptomatic treatment. Otherwise at this time I recommend repeat labs. Closely follow with Cardiology. Patient is on Cardizem drip. Patient is also on beta blockers. We will continue to monitor. Guarded prognosis. Further recommendations to follow. MMODL / IJN: [id number] /
[2018-10-03] MEDS: MONTELUKAST 10 MG TAB PO SCH (20:19)
[2018-10-03 20:46] LABS: Glucose,Whole Blood 178 mg/dL (75-99)
[2018-10-04] MEDS: IPRATROPIUM-ALBUTEROL 3 ML NEB INHALATION SCH ×4 (00:37→12:27)
[2018-10-04] MEDS: DILTIAZEM 50 MG in SODIUM CHLORIDE 0.9% 40 ML IV SCH ×3 (03:00→07:50)
[2018-10-04] MEDS: SODIUM CHLORIDE 0.9% 1,000 ML IV SCH (03:01)
[2018-10-04 05:05] LABS: Glucose,Whole Blood 119 mg/dL (75-99)
[2018-10-04] MEDS: INSULIN ASPART 100 UNIT/ML 1 ML 10 ML VIAL SQ SCH ×3 (05:54→15:20)
[2018-10-04] MEDS: PANTOPRAZOLE 40 MG TABLET PO SCH (06:56)
[2018-10-04 07:13] LABS: Prothrombin Time 11.1 sec (9.0-12.0)
[2018-10-04 07:39] LABS: Basophils % (A) 0 %; Eosinophils # (A) 0.1 k/uL (0-0.7); Eosinophils % (A) 0 %; HCT 39.8 % (34.0-46.0); HGB 12.5 gm/dL (11.4-16.0); Lymphocytes # (A) 1.1 k/uL (1.0-4.8); Lymphocytes % (A) 5 %; MCH 29.1 pg (25.0-35.0); MCHC 31.4 g/dL (31.0-37.0); MCV 92.6 fL (80.0-100.0); Monocytes # (A) 0.8 k/uL (0-1.0); Monocytes % (A) 4 %; Neutrophils # (A) 20.1 k/uL (1.3-7.7); Neutrophils % (A) 91 %; Platelet Count 232 k/uL (150-450); RDW 14.6 % (11.5-15.5); WBC 22.1 k/uL (3.8-10.6)
[2018-10-04] MEDS: CHOLECALCIFEROL 1,000 UNIT TAB PO SCH (07:45)
[2018-10-04] MEDS: ASPIRIN 81 MG PO SCH (07:45)
[2018-10-04] MEDS: HYDROCHLOROTHIAZIDE 12.5 MG CAP PO SCH (07:45)
[2018-10-04] MEDS: APIXABAN 5 MG TAB PO SCH (07:46)
[2018-10-04] MEDS: LORATADINE 10 MG TAB PO SCH (07:46)
[2018-10-04] MEDS: VITAMIN A 10,000 UNIT CAPSULE PO SCH (07:46)
[2018-10-04] MEDS: CALCIUM CARBONATE 500 MG CHEWABLE PO SCH (07:47)
[2018-10-04] MEDS: DILTIAZEM CD 240 MG CAP.ER.24H PO SCH (07:47)
[2018-10-04] MEDS: METOPROLOL TARTRATE 50 MG TAB PO SCH (07:48)
[2018-10-04] MEDS: BRIMONIDINE TARTRATE 0.2% DROPS 5 ML BTL BOTH EYES SCH (07:49)
[2018-10-04 07:59] VITALS: RESP 20
[2018-10-04] MEDS: BUDESONIDE 1 MG/2 ML NEBU INHALATION SCH (08:36)
[2018-10-04 11:38] VITALS: BP 110/70; TEMP 97.4
[2018-10-04 11:48] LABS: Glucose,Whole Blood 106 mg/dL (75-99)
--- NOTE | 2018-10-04 14:06 | P.PN ---
Subjective Progress Note Date: 10/04/18 This is a pleasant 68-year-old female with diagnosis of bronchial asthma, hypertension, who follows with Dr. Bailon in the office. She initially presented to the hospital with symptoms of progressively worsening shortness of breath. Patient was found to be in atrial fibrillation with rapid ventricular response and was initiated on rate control medications along with anticoagulation. She was seen and examined this morning, felt well, denies any palpitations or shortness of breath. She ambulated in the [place] without any difficulty. Heart rate in the 90s to low 100s with ambulation, maintaining 90s at rest. Echo cardiac gram with Doppler study was performed which revealed an ejection fraction of 40-45%, moderate to severe tricuspid regurg. Objective - Vital Signs Vital signs: Vital Signs Temp 97.4 F L 10/04/18 11:34 Pulse 76 10/04/18 12:27 Resp 20 10/04/18 11:34 BP 110/70 10/04/18 11:34 Pulse Ox 95 10/04/18 11:34 Intake & Output 10/03/18 10/04/18 10/04/18 18:59 06:59 18:59 Intake Total 1140.000 360 Output Total 520 200 Balance 620.000 160 Weight 88.5 kg Intake: Intake, IV Titration 340.000 Amount Diltiazem 50 mg In Sodium 50.000 Chloride 0.9% 40 ml @ 10 MG/HR 10 mls/hr IV .Q5H [facility] Rx#:[id number] Sodium Chloride 0.9% 1, 240 000 ml @ 20 mls/hr IV . Q24H [facility] Rx#:[id number] cefTRIAXone 1,000 mg In 50 Sodium Chloride 0.9% 50 ml @ 100 mls/hr IVPB HS [facility] Rx#:[id number] Oral 800 360 Output: Urine 520 200 Other: Voiding Method Toilet Toilet Toilet # Voids 1 1 1 - Exam PHYSICAL EXAMINATION: GENERAL: 68-year-old female in no acute distress at the time of my examination HEENT: Head is atraumatic, normocephalic. Pupils equal, round. Sclera anicteric. Conjunctiva are clear. Mucous membranes of the mouth are moist. Neck is supple. There is no elevated jugular venous pressure.] bruit is heard. HEART EXAMINATION: Heart S1, S2 regularly irregular a systolic murmur is . CHEST EXAMINATION: Lungs are clear to auscultation and precussion. No chest wall tenderness is noted on palpation or with deep breathing. ABDOMEN: Soft, nontender. Bowel sounds are heard. No organomegaly noted. EXTREMITIES: 2+ peripheral pulses with no evidence of peripheral edema and no calf tenderness noted. NEUROLOGIC patient is awake, alert and oriented ?-3. . - Labs CBC & Chem 7: 10/04/18 06:01 10/02/18 09:45 Labs: Abnormal Lab Results - Last 24 Hours (Table) 10/03/18 10/03/18 10/04/18 Range/Units 16:39 20:44 05:03 WBC (3.8-10.6) k/uL Neutrophils # (1.3-7.7) k/uL POC Glucose (mg/dL) 138 H 178 H 119 H (75-99) mg/dL 10/04/18 10/04/18 Range/Units 06:01 11:47 WBC 22.1 H (3.8-10.6) k/uL Neutrophils # 20.1 H (1.3-7.7) k/uL POC Glucose (mg/dL) 106 H (75-99) mg/dL Microbiology - Last 24 Hours (Table) 10/02/18 21:40 Urine Culture - Final Urine,Clean Catch 10/02/18 20:50 Blood Culture - Preliminary Blood No Growth after 24 hours Assessment and Plan Plan: Assessment and plan #1 bronchial asthma #2 chronic persistent atrial fibrillation, rate under better control #3 GERD #4 hyperlipidemia #5 osteoarthritis Plan From cardiology's perspective, we'll continue patient on her current medications. She may be able to be discharged home from our perspective to follow-up with Dr. Bailon in the office in 2 weeks. She has been educated regarding the importance of anticoagulation. DNP note has been reviewed, I agree with a documented findings and plan of care. Patient was seen and examined.
--- NOTE | 2018-10-04 14:07 | P.PN ---
Subjective Progress Note Date: 10/04/18 Principal diagnosis: A. fib RVR, dyspnea related to A. fib, asthma stable On 10/04/2018 patient seen in follow-up on selective care unit, she is awake and alert, in no acute distress, sitting up in the chair, denies any dyspnea, her atrial fibrillation is better controlled, heart rate is 76 BPM, room air pulse ox of 95%, afebrile, lung sounds are negative for any wheezing, a few scattered rhonchi, breath sounds are diminished at the bases. No fever, no chills, no chest pain. 2-D echocardiogram was completed and showed a reduced ejection fraction of 40-45%. Today's lab work has been reviewed, WBC is 22.1, hemoglobin 12.5. BMP was not done today. A pulmonary perspective patient has no significant complaints, no worsening dyspnea, no chest congestion, no wheezing. Objective - Vital Signs Vital signs: Vital Signs Temp 97.4 F L 10/04/18 11:34 Pulse 76 10/04/18 12:27 Resp 20 10/04/18 11:34 BP 110/70 10/04/18 11:34 Pulse Ox 95 10/04/18 11:34 Intake & Output 10/03/18 10/04/18 10/04/18 18:59 06:59 18:59 Intake Total 1140.000 360 Output Total 520 200 Balance 620.000 160 Weight 88.5 kg Intake: Intake, IV Titration 340.000 Amount Diltiazem 50 mg In Sodium 50.000 Chloride 0.9% 40 ml @ 10 MG/HR 10 mls/hr IV .Q5H [facility] Rx#:[id number] Sodium Chloride 0.9% 1, 240 000 ml @ 20 mls/hr IV . Q24H [facility] Rx#:[id number] cefTRIAXone 1,000 mg In 50 Sodium Chloride 0.9% 50 ml @ 100 mls/hr IVPB HS [facility] Rx#:[id number] Oral 800 360 Output: Urine 520 200 Other: Voiding Method Toilet Toilet Toilet # Voids 1 1 1 - Exam GENERAL EXAM: Alert, pleasant 68-year-old white female comfortable in no apparent distress. HEAD: Normocephalic/atraumatic. EYES: Normal reaction of pupils, equal size. Conjunctiva pink, sclera white. NOSE: Clear with pink turbinates. THROAT: No erythema or exudates. NECK: No masses, no JVD, no thyroid enlargement, no adenopathy. CHEST: No chest wall deformity. Symmetrical expansion. LUNGS: Equal air entry with a few rhonchi CVS: Regular rate and rhythm, normal S1 and S2, no gallops, no murmurs, no rubs ABDOMEN: Soft, nontender. No hepatosplenomegaly, normal bowel sounds, no guarding or rigidity. EXTREMITIES: No clubbing, no edema, no cyanosis, 2+ pulses and upper and lower extremities. MUSCULOSKELETAL: Muscle strength and tone normal. SPINE: No scoliosis or deformity SKIN: No rashes CENTRAL NERVOUS SYSTEM: Alert and oriented -3. No focal deficits, tone is normal in all 4 extremities. PSYCHIATRIC: Alert and oriented -3. Appropriate affect. Intact judgment and insight. - Labs CBC & Chem 7: 10/04/18 06:01 10/02/18 09:45 Labs: Abnormal Lab Results - Last 24 Hours (Table) 10/03/18 10/03/18 10/04/18 Range/Units 16:39 20:44 05:03 WBC (3.8-10.6) k/uL Neutrophils # (1.3-7.7) k/uL POC Glucose (mg/dL) 138 H 178 H 119 H (75-99) mg/dL 10/04/18 10/04/18 Range/Units 06:01 11:47 WBC 22.1 H (3.8-10.6) k/uL Neutrophils # 20.1 H (1.3-7.7) k/uL POC Glucose (mg/dL) 106 H (75-99) mg/dL Microbiology - Last 24 Hours (Table) 10/02/18 21:40 Urine Culture - Final Urine,Clean Catch 10/02/18 20:50 Blood Culture - Preliminary Blood No Growth after 24 hours Assessment and Plan Plan: Assessment: #1. A. fib RVR, likely triggered by the patient's excessive use of short- acting beta agonist #2. Chronic bronchial asthma, unspecified, currently stable #3. Hypertension, hyperlipidemia #4. Systolic dysfunction, with left ventricular ejection fraction of 40-45% #5. Pulmonary hypertension, with right-sided right-sided pressures of 41 mmHg #6. nonsmoker #7. History of seizure disorder #8. History of migraine cephalgia #9. Glaucoma #10. Previous history of rheumatic fever Plan: Patient is stable from pulmonary perspective, no dyspnea, no wheezing, a few scattered rhonchi. Patient is on room air, no fever or chills. Labs have been reviewed, WBC is 22.1, hemoglobin is 12.5. Patient's steroids have been discontinued, her heart rate is better controlled, and was started on anticoagulation. From pulmonary perspective patient is stable for discharge home, will follow on an as-needed basis. I performed a history & physical examination of the patient and discussed their management with my nurse practitioner, Natalie Henson. I reviewed the nurse practitioner's note and agree with the documented findings and plan of care. Lung sounds are diminished with a few rhonchi. The findings and the impression was discussed with the patient. I attest to the documentation by the nurse practitioner. Time with Patient: Less than 30
--- NOTE | 2018-10-04 14:31 | PN ---
PROGRESS NOTE Mrs Gates is a lady with atrial fib and bronchial asthma, COPD-type picture. She is doing better today. Her heart rate has improved. Vital signs are stable, S1-S2 heard normally, irregular rhythm noted, short systolic murmur noted. Lungs reveal improved air entry. Heart rate is better controlled with activity. We will continue current medications, increase activity, discharge her and she will see Dr. Bailon in 2 weeks. Her pulmonary status has also been optimized and Dr. Bruner has seen the patient today. Patient may require electrical cardioversion after 3 weeks of anticoagulation. She will therefore go home on anticoagulation and rate control and I discussed with the patient and the plan and advised them not to use too many beta agonist bronchodilators. MMODL / IJN: [id number] /
[2018-10-04 14:54] VITALS: PULSE 98
--- NOTE | 2018-10-04 19:18 | P.DS ---
Providers Date of admission: 10/02/18 11:13 Expected date of discharge: 10/04/18 Attending physician: Adolfo Escobar Consults: 10/02/18 11:13 Consult Physician Routine Consulting Provider: Timothy Bruner Consult Reason/Comments: copd Do you want consulting provider notified?: Yes Consult Physician Routine Consulting Provider: Marko Bailon Consult Reason/Comments: afib Do you want consulting provider notified?: Yes Primary care physician: Tico Boston MD Hospital Course: Final Diagnoses: -Atrial fibrillation with RVR, present on admission, triggered by excessive use of short-acting beta agonist -Chest pain, possibly asthmatic exacerbation, rule out CAD. -Acute bronchial asthma exacerbation -Chronic congestive heart failure with systolic dysfunction, EF 40-45% -GERD -hyperlipidemia -pulmonary hypertension -History of seizure disorder -History of rheumatic fever Hospital course: This is a 68-year-old female in a with shortness of breath, bronchial asthma acute exacerbation, acute purulent tracheobronchitis, atrial fibrillation with RVR. Evaluated by cardiology and pulmonary. Maintained on antiarrhythmics-status post Cardizem drip, nebulized bronchodilators. Attempted steroids, worsened tachycardia, discontinued. Significant clinical improvement. Cleared by pulmonary and cardiology for discharge. Patient is being discharged home in stable condition with guarded prognosis. EXAMINATION: GENERAL: Alert and oriented 3, no acute distress. CV:Heart S1, S2 regularly irregular,systolic murmur Lungs:clear to auscultation with occasional scattered rhonchi, no wheezing.ABDOMEN: Soft, nontender. Bowel sounds are heard. NEUROLOGIC no focal deficits. The impression and plan of care has been dictated as directed. : I performed a history and examination of this patient, discussed the same with the dictator. I agree with the dictator's note ,documented as a scribe. Any additional findings or plans will be noted. Time taken: 35 minutes . Patient Condition at Discharge: Stable Plan - Discharge Summary Discharge Rx Participant: Yes New Discharge Prescriptions: New Diltiazem Cd [Cardizem CD] 240 mg PO DAILY #30 cap.er.24h Metoprolol Tartrate [Lopressor] 50 mg PO BID #60 tab Apixaban [Eliquis] 5 mg PO BID #60 tab Continue Albuterol Inhaler [Ventolin Hfa Inhaler] 2 puff INHALATION RT-Q4H Montelukast [Singulair] 10 mg PO HS Albuterol Nebulized [Ventolin Nebulized] 2.5 mg INHALATION RT-Q6H PRN PRN Reason: sob Aspirin [Adult Low Dose Aspirin EC] 81 mg PO DAILY Meloxicam 15 mg PO DAILY PRN PRN Reason: Pain Loratadine [Claritin] 10 mg PO DAILY Vitamin A Acetate [Vitamin A] 10,000 unit SL DAILY Biotin-7500mcg 7,500 mcg PO DAILY Cholecalciferol [Vitamin D3] 5,000 unit PO DAILY Thera Tears 1 drop BOTH EYES BID PRN PRN Reason: DRY EYES Fish Oil/Dha/Epa [Fish Oil 1,200 mg Fish Oil] 1 cap PO DAILY Calcium Carbonate [Calcium] 1,200 mg PO DAILY Brimonidine Tartrate [Alphagan P 0.2% Oph Soln] 1 drops BOTH EYES BID Budesonide/Formoterol Fumarate [Symbicort 80-4.5 Mcg Inhaler] 2 puff INHALATION RT-BID Omeprazole [PriLOSEC] 20 mg PO AC-BID Discontinued amLODIPine [Norvasc] 5 mg PO DAILY Hydrochlorothiazide 12.5 mg PO DAILY Clindamycin [Cleocin] 600 mg PO ONCE PRN PRN Reason: 1 HR PRIOR TO PROCEDURES Discharge Medication List Albuterol Inhaler [Ventolin Hfa Inhaler] 2 puff INHALATION RT-Q4H 09/19/16 [ History] Albuterol Nebulized [Ventolin Nebulized] 2.5 mg INHALATION RT-Q6H PRN 09/19/16 [ History] Aspirin [Adult Low Dose Aspirin EC] 81 mg PO DAILY 09/19/16 [History] Meloxicam 15 mg PO DAILY PRN 09/19/16 [History] Montelukast [Singulair] 10 mg PO HS 09/19/16 [History] Biotin-7500mcg 7,500 mcg PO DAILY 08/07/17 [History] Loratadine [Claritin] 10 mg PO DAILY 08/07/17 [History] Vitamin A Acetate [Vitamin A] 10,000 unit SL DAILY 08/07/17 [History] Calcium Carbonate [Calcium] 1,200 mg PO DAILY 03/13/18 [History] Cholecalciferol [Vitamin D3] 5,000 unit PO DAILY 03/13/18 [History] Fish Oil/Dha/Epa [Fish Oil 1,200 mg Fish Oil] 1 cap PO DAILY 03/13/18 [History] Thera Tears 1 drop BOTH EYES BID PRN 03/13/18 [History] Brimonidine Tartrate [Alphagan P 0.2% Ophth Soln] 1 drops BOTH EYES BID [History] Budesonide/Formoterol Fumarate [Symbicort 80-4.5 Mcg Inhaler] 2 puff INHALATION RT-BID 10/02/18 [History] Omeprazole [PriLOSEC] 20 mg PO AC-BID 10/02/18 [History] Apixaban [Eliquis] 5 mg PO BID #60 tab 10/04/18 [Rx] Diltiazem Cd [Cardizem CD] 240 mg PO DAILY #30 cap.er.24h 10/04/18 [Rx] Metoprolol Tartrate [Lopressor] 50 mg PO BID #60 tab 10/04/18 [Rx] Follow up Appointment(s)/Referral(s): Marko Bailon MD [STAFF PHYSICIAN] - 3 Weeks (Office will call back with follow up appointment.) Tico Boston MD [Primary Care Provider] - 10/11/18 1:30 pm (Office will call you with follow up appointment.) Ambulatory/Diagnostic Orders: Complete Blood Count w/diff [LAB.AMB] Time Frame: 3 Days, Location: None Selected Patient Instructions/Handouts: A-fib (Atrial Fibrillation) (DC), Safe Use of Anticoagulants (DC) Activity/Diet/Wound Care/Special Instructions: copay for Eliquis is $38.70/mo. Discharge Disposition: HOME SELF-CARE
== END 2018-10-04 17:04 | disposition home or self-care (01) | DRG 918 ==
LOC: EC 08:40 → 3SCARD 11:13
PROVIDERS: ADMIT Hospitalist; ATTEND Hospitalist
DX: T48.6X1A Poisoning by antiasthmatics, accidental (unintentional), initial encounter (principal); I48.1 Persistent atrial fibrillation; I50.22 Chronic systolic (congestive) heart failure; J45.901 Unspecified asthma with (acute) exacerbation; I11.0 Hypertensive heart disease with heart failure; K21.9 Gastro-esophageal reflux disease without esophagitis; E66.9 Obesity, unspecified; E78.5 Hyperlipidemia, unspecified; G40.909 Epilepsy, unspecified, not intractable, without status epilepticus; H40.9 Unspecified glaucoma; I07.1 Rheumatic tricuspid insufficiency; I27.20 Pulmonary hypertension, unspecified; M19.90 Unspecified osteoarthritis, unspecified site; G43.909 Migraine, unspecified, not intractable, without status migrainosus; Z96.652 Presence of left artificial knee joint; Z79.01 Long term (current) use of anticoagulants; Z79.82 Long term (current) use of aspirin; Z79.899 Other long term (current) drug therapy; Z90.49 Acquired absence of other specified parts of digestive tract; Z98.49 Cataract extraction status, unspecified eye; Z79.1 Long term (current) use of non-steroidal anti-inflammatories (NSAID); Z79.51 Long term (current) use of inhaled steroids; Z88.0 Allergy status to penicillin; Z88.8 Allergy status to other drugs, medicaments and biological substances; Z88.1 Allergy status to other antibiotic agents; Z91.041 Radiographic dye allergy status; Z91.018 Allergy to other foods
CPT/HCPCS: 36415; 71046; 80053; 81003; 82550; 82553; 83036; 83735; 83880; 84484; 85025; 85379; 85610; 85730; 87040; 87086; 93005; 93306; 94640; 96361; 96365; 96366; 96375; 96376; 99291

== ENCOUNTER → 2018-10-08 | Outpatient (CLI) | payer MEDICARE ==
[2018-10-08 09:18] LABS: Basophils % (A) 0 %; Eosinophils # (A) 0.4 k/uL (0-0.7); Eosinophils % (A) 4 %; HCT 43.9 % (34.0-46.0); HGB 14.3 gm/dL (11.4-16.0); Lymphocytes # (A) 1.6 k/uL (1.0-4.8); Lymphocytes % (A) 16 %; MCH 30.2 pg (25.0-35.0); MCHC 32.6 g/dL (31.0-37.0); MCV 92.6 fL (80.0-100.0); Mean Platelet Volume 7.8; Monocytes # (A) 0.4 k/uL (0-1.0); Monocytes % (A) 5 %; Neutrophils # (A) 7.2 k/uL (1.3-7.7); Neutrophils % (A) 74 %; Platelet Count 180 k/uL (150-450); RBC 4.74 m/uL (3.80-5.40); RDW 14.2 % (11.5-15.5); WBC 9.7 k/uL (3.8-10.6)
[2018-10-08 15:40] LABS: Anion Gap 6.3 mmol/L (4.00-12.00); Calcium 9.1 mg/dL (8.7-10.3); Carbon Dioxide 24.7 mmol/L (21.6-31.8); Potassium 4.7 mmol/L (3.5-5.5)
== END | disposition home or self-care (01) ==
LOC: LABWHC1 08:33
PROVIDERS: ATTEND Nurse Practitioner
DX: I48.91 Unspecified atrial fibrillation (principal)
CPT/HCPCS: 36415; 80048; 85025

== ENCOUNTER → 2018-10-29 | Outpatient (CLI) | payer MEDICARE | LOC: LABWHC1 16:02 | PROVIDERS: ATTEND Nurse Practitioner Adult Health | DX: I48.1 Persistent atrial fibrillation (principal) | CPT/HCPCS: 36415; 84443 ==

== ENCOUNTER → 2018-10-31 | Outpatient (CLI) | payer MEDICARE ==
[2018-10-31 13:28] LABS: HCT 42.2 % (34.0-46.0); MCH 30.1 pg (25.0-35.0); MCHC 33.2 g/dL (31.0-37.0); MCV 90.5 fL (80.0-100.0); Mean Platelet Volume 7.3; Platelet Count 228 k/uL (150-450); RBC 4.66 m/uL (3.80-5.40); RDW 14.2 % (11.5-15.5); WBC 7.2 k/uL (3.8-10.6)
[2018-10-31 13:33] LABS: Magnesium 2.3 mg/dL (1.6-2.3); Potassium 4.7 mmol/L (3.5-5.1)
== END | disposition home or self-care (01) ==
LOC: LABPAT 12:44
PROVIDERS: ATTEND Internal Medicine Interventional Cardiology
DX: Z01.812 Encounter for preprocedural laboratory examination (principal); I25.10 Atherosclerotic heart disease of native coronary artery without angina pectoris
CPT/HCPCS: 36415; 80051; 82565; 82947; 83735; 84520; 85027

== ENCOUNTER 2018-11-22 10:39 | Day surgery (SDC) | payer MEDICARE ==
[~2018-11-22 10:39] MED LIST changes: +ALPRAZolam 0.25 MG TAB PO PRN; +ALPRAZolam 0.5 MG TAB PO PRN; +ASPIRIN 325 MG TAB PO ONE; +ATORVASTATIN 80 MG TAB PO ONE; -LACTATED RINGERS 1,000 ML IV SCH; +NITROGLYCERIN SL TABS 0.4 MG TAB SUBLINGUAL PRN; +SODIUM CHLORIDE 0.9% 1,000 ML in EMPTY BAG 1 BAG IV ONE
[2018-11-22] MEDS ORDERED: LIDOCAINE 1% INJ 10MG/ML (20 ML MDV) ONE (13:24)
[2018-11-22] MEDS ORDERED: VERAPAMIL 2.5 MG/ML 2 ML AMP ONE (13:24)
[2018-11-22] MEDS ORDERED: HEPARIN SODIUM 1,000 UN/ML (10ML VL) ONE (13:25)
[2018-11-22] MEDS ORDERED: fentaNYL (PF) 50 MCG/ML 2 ML AMP ONE (13:25)
[2018-11-22] MEDS ORDERED: fentaNYL (PF) 50 MCG/ML 2 ML AMP IV ONE (13:44)
[2018-11-22] MEDS ORDERED: METOPROLOL TARTRATE 5 MG/5 ML VIAL IVP ONE ×3 (13:45→14:12)
[2018-11-22] MEDS: METOPROLOL TARTRATE 5 MG/5 ML VIAL IVP ONE ×2 (13:47→14:06)
[2018-11-22] MEDS ORDERED: LIDOCAINE 1%-EPI 1:100,000 20 ML VIAL SQ ONE (14:02)
[2018-11-22] MEDS ORDERED: VERAPAMIL SYRINGE (5 MG/10 ML) INTRAARTER ONE (14:06)
[2018-11-22] MEDS ORDERED: IOPAMIDOL-370 100ML BTL INJ ONE (14:16)
[2018-11-22] MEDS ORDERED: RX INFO: IV CONTRAST WAS GIVEN 1 EACH MISC MISCELLANE PRN (14:34)
[2018-11-22] MEDS ORDERED: SODIUM CHLORIDE 0.9% 1,000 ML IV SCH (14:45)
--- NOTE | 2018-11-22 14:54 | CC ---
CARDIAC CATHETERIZATION REPORT Mrs. Gates is a 68-year-old female with known history of hypertension, hyperlipidemia, who has been complaining of dyspnea on exertion. She was noted to have atrial fibrillation, was cardioverted but has recurrent atrial fibrillation. In view of that and in view of the cardiomyopathy, recommendations were made regarding cardiac catheterization. The procedure, risks and complications were discussed with the patient who is in full understanding and agreement. PROCEDURE: Patient was brought to the parking lot laborer in a fasting semi-sedated state after receiving fentanyl and Benadryl and achieving moderate conscious state. Using Xylocaine anesthesia and Seldinger technique, a 6-Croatian sheath was introduced in the right radial artery. Selective right and left angiography was performed using 5-Croatian 3.5 bend right and left Jamin catheter, multiple views including hemiaxial views were obtained. Following that 5-Croatian tight pigtail catheter was introduced in the left ventricle and a 30 degree KRISHNA view of the left ventricle was obtained. Following that, catheter and sheaths were removed. There was no immediate complication. Patient is returned to the room in stable condition. Of note, patient received 5000 units of intravenous heparin as well as intra-arterial verapamil. FINDINGS: LEFT MAIN: This is a short size vessel, bifurcating into left circumflex, left anterior descending artery. Left main coronary artery has no evidence of high-grade stenosis. LEFT ANTERIOR DESCENDING ARTERY: This is a large-sized vessel reaching toward the apex with a wraparound apex segment giving rise to 2 diagonal branches. The left anterior descending artery as well as branches have no evidence of significant obstructive coronary artery disease. LEFT CIRCUMFLEX: This is a large dominant vessel giving rise to a PDA and a PLV distally. The left circumflex in the proximal segment has a 20% to 30% plaque. The rest of the vessel has no high-grade stenosis. RIGHT CORONARY ARTERY: This is a small nondominant vessel that has no evidence of high- grade stenosis. LEFT VENTRICULOGRAM: Left ventriculogram is performed in 30 degree KRISHNA view and revealed a mild global hypokinesis with ejection fraction 45% to 50%. There was arrhythmia induced mitral regurgitation. HEMODYNAMICS: There was no gradient across the aortic valve. The left ventricle end-diastolic pressure is 16-20 mmHg. CONCLUSION: 1. Mild intimal disease involving the left circumflex. 2. Dominant left circumflex system. 3. Mild global hypokinesis with induced mitral regurgitation. RECOMMENDATION: In view of finding anatomy, recommend continue medical therapy with further evaluation of her atrial fibrillation to make a decision regarding restoring sinus mechanism either by antiarrhythmic and cardioversion or ablation. Those findings and recommendation were discussed with the patient and her family and they are in full understanding and agreement. Duration of procedure is 18 minutes. MMLEON / ALESSION: [id number] /
[2018-11-22 15:40] VITALS: RESP 18; TEMP 97.9
[2018-11-22 16:51] LABS: Glucose,Whole Blood 197 mg/dL (75-99)
[2018-11-22 17:35] VITALS: BP 97/70; PULSE 94
[2018-11-22 20:18] VITALS: BMI 36.5
[2018-11-22] MEDS ORDERED: MONTELUKAST 10 MG TAB PO SCH (21:00)
[2018-11-22] MEDS ORDERED: APIXABAN 5 MG TAB PO SCH (21:00)
[2018-11-22] MEDS ORDERED: METOPROLOL TARTRATE 50 MG TAB PO SCH (21:00)
[2018-11-22] MEDS ORDERED: BRIMONIDINE TARTRATE 0.2% DROPS 5 ML BTL BOTH EYES SCH (21:00)
[2018-11-23] MEDS ORDERED: PANTOPRAZOLE 40 MG TABLET PO SCH (07:30)
[2018-11-23] MEDS ORDERED: LORATADINE 10 MG TAB PO SCH (09:00)
[2018-11-23] MEDS ORDERED: DILTIAZEM CD 240 MG CAP.ER.24H PO SCH (09:00)
== END 2018-11-22 20:08 | disposition home or self-care (01) ==
LOC: CATHCVL 10:39 → 1SOBS 14:24 → CATHCVL 20:08
PROVIDERS: ATTEND Internal Medicine Interventional Cardiology
DX: I25.10 Atherosclerotic heart disease of native coronary artery without angina pectoris (principal); I34.0 Nonrheumatic mitral (valve) insufficiency; I10 Essential (primary) hypertension; E78.2 Mixed hyperlipidemia; I48.1 Persistent atrial fibrillation; Z79.01 Long term (current) use of anticoagulants; Z79.1 Long term (current) use of non-steroidal anti-inflammatories (NSAID); Z79.82 Long term (current) use of aspirin; Z79.899 Other long term (current) drug therapy; Z88.0 Allergy status to penicillin; Z91.09 Other allergy status, other than to drugs and biological substances; Z82.49 Family history of ischemic heart disease and other diseases of the circulatory system
CPT/HCPCS: 93458; C1769; C1894; J3010; J1644; Q9967

== ENCOUNTER → 2018-12-13 | Outpatient (CLI) | payer MEDICARE ==
[2018-12-13 11:19] LABS: HCT 41.2 % (34.0-46.0); HGB 13.6 gm/dL (11.4-16.0); MCH 29.6 pg (25.0-35.0); MCHC 32.9 g/dL (31.0-37.0); MCV 89.9 fL (80.0-100.0); Mean Platelet Volume 8.5; Platelet Count 212 k/uL (150-450); RBC 4.58 m/uL (3.80-5.40); RDW 14.7 % (11.5-15.5); WBC 7.1 k/uL (3.8-10.6)
[2018-12-13 11:27] LABS: Anion Gap 9 mmol/L; Blood Urea Nitrogen 17 mg/dL (7-17); Carbon Dioxide 22 mmol/L (22-30); Chloride 110 mmol/L (98-107); Potassium 4.5 mmol/L (3.5-5.1); Sodium 141 mmol/L (137-145)
== END | disposition home or self-care (01) ==
LOC: LABPAT 09:47
PROVIDERS: ATTEND Internal Medicine Interventional Cardiology
DX: Z01.812 Encounter for preprocedural laboratory examination (principal); I48.1 Persistent atrial fibrillation; I25.10 Atherosclerotic heart disease of native coronary artery without angina pectoris
CPT/HCPCS: 80051; 82565; 84520; 85027

== ENCOUNTER → 2018-12-18 | Day surgery (SDC) | payer MEDICARE ==
[2018-12-14 12:04] VITALS: BMI 37.0
[~2018-12-18] MED LIST changes: +ACETAMINOPHEN TAB 325 MG TAB PO PRN; -ALPRAZolam 0.25 MG TAB PO PRN; -ALPRAZolam 0.5 MG TAB PO PRN; +APIXABAN 5 MG TAB PO SCH; -ASPIRIN 325 MG TAB PO ONE; -ATORVASTATIN 80 MG TAB PO ONE; +BRIMONIDINE TARTRATE 0.2% DROPS 5 ML BTL BOTH EYES SCH; +DILTIAZEM CD 240 MG CAP.ER.24H PO SCH; +FLECAINIDE 50 MG TAB PO SCH; +LEVALBUTEROL INHALATION PRN; +LORATADINE 10 MG TAB PO SCH; +METOPROLOL TARTRATE 50 MG TAB PO SCH; +MONTELUKAST 10 MG TAB PO SCH; -NITROGLYCERIN SL TABS 0.4 MG TAB SUBLINGUAL PRN; +NON-FORMULARY DRUG (Omeprazole 20 MG) PO SCH; +PROPOFOL 10 MG/ML 20 ML VIAL IV ONE; +SODIUM CHLORIDE 0.9% 1,000 ML IV SCH; -SODIUM CHLORIDE 0.9% 1,000 ML in EMPTY BAG 1 BAG IV ONE; +THERA TEARS BOTH EYES PRN
[2018-12-18 10:05] VITALS: TEMP 98
--- NOTE | 2018-12-18 10:11 | CE ---
CARDIAC ELECTROPHYSIOLOGY REPORT CARDIOVERSION PROCEDURE NOTE INDICATION: Atrial fibrillation. PROCEDURE: After explaining the procedure to the patient, its risks and the complications, blood pressure, heart rate, O2 saturation were monitored. After obtaining sedated state per the anesthesia department, a synchronized biphasic cardioversion using 250 joules was unsuccessful in restoring sinus mechanism. Subsequently, a 300 joules synchronized biphasic cardioversion was performed with restorationism of normal sinus rhythm. There was no immediate complication. MMODL / IJN: [id number] /
[2018-12-18 11:55] VITALS: RESP 18
[2018-12-18 11:56] VITALS: BP 112/68; PULSE 71
== END | disposition home or self-care (01) ==
LOC: CATHCVL 07:54
PROVIDERS: ATTEND Internal Medicine Interventional Cardiology
DX: I48.1 Persistent atrial fibrillation (principal); Z79.01 Long term (current) use of anticoagulants; E78.2 Mixed hyperlipidemia; I25.10 Atherosclerotic heart disease of native coronary artery without angina pectoris; I10 Essential (primary) hypertension; Z82.49 Family history of ischemic heart disease and other diseases of the circulatory system; G47.33 Obstructive sleep apnea (adult) (pediatric); Z79.51 Long term (current) use of inhaled steroids; Z79.899 Other long term (current) drug therapy; Z88.0 Allergy status to penicillin; Z91.048 Other nonmedicinal substance allergy status
CPT/HCPCS: 92960; J2704

== ENCOUNTER → 2019-02-05 | Outpatient (CLI) | payer MEDICARE ==
--- NOTE | 2019-02-05 17:51 | CONS ---
CONSULTATION REASON FOR CONSULTATION: Sleep apnea. 69-year-old, obese female patient was referred to me for sleep apnea evaluation. The patient was recently diagnosed as having atrial fibrillation, chronic and the patient is being considered for ablation and this will be done by Dr. Mackey on February 28, 2019. For that reason, and prior to the procedure, a sleep apnea evaluation was requested. The patient is coming in today accompanied by her . She has no snoring. No witnessed apneas. No chronic hypersomnia or sleepiness during the day. She denies having excessive fatigue or sleepiness. No witnessed apneas. No choking or gasping for air at nighttime. No nocturia. No grinding of the teeth. No anxiety or panic attacks. No palpitation. No heartburn. Weight has been stable. She goes to bed around 11 p.m., wakes up 7:00 am in the morning and she takes 1 nap around 2:00 pm and is an hour nap. No recent weight gain. [place] score is 3. PAST MEDICAL HISTORY: 1. Prior chronic bronchial asthma. 2. Chronic atrial fibrillation. 3. Obesity. 4. Degenerative arthritis. PAST SURGICAL HISTORY: Includes diverticulitis surgery/colectomy, cataract surgery, tonsillectomy, breast reduction surgery. Total knee replacement. DRUG ALLERGIES: PENICILLIN. IODINE. OUTPATIENT MEDICATION LIST: Includes Eliquis 5 mg twice a day. Cardizem 240 mg p.o. daily, metoprolol 50 mg p.o. twice a day, Omeprazole 20 mg p.o. daily. Singulair 10 mg p.o. daily, Xopenex on a p.r.n. basis. Loratadine 10 mg p.o. daily and Brimonidine 0.2% ophthalmic solution. FAMILY HISTORY: Negative for sleep apnea in the family. No personal family history of sleep apnea. SOCIAL HISTORY: Nonsmoker. No history of alcohol. No history of IV drugs. REVIEW OF SYSTEMS: Fourteen-point review of system was done and negative other than as mentioned above in history of present illness. The patient preferred to sleep on her back. She takes a 2 hour nap around 2:00 pm. She wakes up restored and she is quite refreshed following sleep. Weight has been stable. She does not wake up in the middle of the night and she has no history of nocturia. No history of any restlessness in lower extremities. No history of any hallucinations, dream like images. No paralysis. She has no snoring as reported by the . Her [place] score is only at 3. PHYSICAL EXAMINATION: BP is 134/80, pulse 80, respirations 16, temp 97.8, saturation 95% on room air. Height is 60 inches, weight is 192, and BMI is 37.2, neck size 15-3/4 of an inch. [place] score is at 3. General appearance is calm and comfortable. Head is atraumatic, normocephalic. NECK: Supple. No JVD. No goiter or neck masses. Mallampati Class 1. LUNGS: Clear to auscultation. HEART: Sounds are irregular positive S1/S2. No S3, no murmurs. ABDOMEN: Soft, nontender. No organomegaly. EXTREMITIES: No cyanosis or clubbing. NEUROLOGIC: A and O x3. No focal neurological deficits. Psychiatrically: Negative for anxiety or depression. Skin is negative for any wounds or ulceration. IMPRESSION: 1. Chronic atrial fibrillation. Being considered for cardiac ablation. 2. Chronic bronchial asthma. 3. Obesity with a BMI of 37. 4. Degenerative arthritis. PLAN: Overall suspicion for obstructive sleep apnea is quite low in this patient. The patient is asymptomatic from a sleep standpoint, and she has good sleep hygiene measures. She is averaging more than 7 hours of sleep and she is very much alert and refreshed during the day. She has a Mallampati class 1. Based on her history of atrial fibrillation, we will do a home sleep study to rule out the possibility of sleep breathing disorder contributing to her atrial fibrillation. My overall suspicion for STERLING is quite low. Encourage weight loss. Her sleep measures and hygiene measures are all appropriate. We will continue to follow and make further recommendations. Especially if there is any significant abnormalities noted in her home sleep study. MMODL / IJN: [id number] /
== END | disposition home or self-care (01) ==
LOC: SLEEP 14:55
PROVIDERS: ATTEND Internal Medicine Critical Care Medicine
DX: I48.2 Chronic atrial fibrillation (principal); J45.909 Unspecified asthma, uncomplicated; E66.9 Obesity, unspecified; M19.90 Unspecified osteoarthritis, unspecified site; Z68.37 Body mass index [BMI] 37.0-37.9, adult; Z79.01 Long term (current) use of anticoagulants; Z79.899 Other long term (current) drug therapy; Z88.0 Allergy status to penicillin
CPT/HCPCS: 99211

== ENCOUNTER → 2019-02-20 | Outpatient (CLI) | payer MEDICARE ==
[2019-02-20 10:12] LABS: Basophils # (A) 0.1 k/uL (0-0.2); Basophils % (A) 1 %; Eosinophils # (A) 0.1 k/uL (0-0.7); Eosinophils % (A) 2 %; HCT 45.6 % (34.0-46.0); HGB 14.9 gm/dL (11.4-16.0); Lymphocytes # (A) 1.8 k/uL (1.0-4.8); Lymphocytes % (A) 24 %; MCH 29.1 pg (25.0-35.0); MCHC 32.6 g/dL (31.0-37.0); Mean Platelet Volume 8.2; Monocytes # (A) 0.3 k/uL (0-1.0); Monocytes % (A) 4 %; Neutrophils # (A) 5.1 k/uL (1.3-7.7); Neutrophils % (A) 68 %; Platelet Count 211 k/uL (150-450); RBC 5.12 m/uL (3.80-5.40); RDW 14.7 % (11.5-15.5); WBC 7.5 k/uL (3.8-10.6)
[2019-02-20 10:24] LABS: Anion Gap 10 mmol/L; Blood Urea Nitrogen 15 mg/dL (7-17); Carbon Dioxide 21 mmol/L (22-30); Chloride 109 mmol/L (98-107); Glucose 93 mg/dL (74-99); Potassium 4.5 mmol/L (3.5-5.1); Sodium 140 mmol/L (137-145)
== END | disposition home or self-care (01) ==
LOC: LABPAT 09:05
PROVIDERS: ATTEND Internal Medicine Clinical Cardiac Electrophysiology
DX: Z01.812 Encounter for preprocedural laboratory examination (principal); I48.1 Persistent atrial fibrillation
CPT/HCPCS: 80051; 82565; 82947; 84520; 85025

== ENCOUNTER 2019-02-28 06:04 | Day surgery (SDC) | payer MEDICARE ==
[2019-02-28] MEDS: SODIUM CHLORIDE 0.9% 1,000 ML IV SCH (06:42)
[2019-02-28] MEDS ORDERED: PROPOFOL 10 MG/ML 20 ML VIAL IV ONE (07:16)
[2019-02-28] MEDS ORDERED: methylPREDNISolone SOD SUCCI 125 MG/2 ML VIAL ONE ×2 (07:16→08:16)
[2019-02-28] MEDS ORDERED: HEPARIN SODIUM,PORCINE 10,000 UNIT/ML 1 ML VIAL ONE (07:16)
[2019-02-28] MEDS ORDERED: SUCCINYLCHOLINE CHLORIDE 100 MG/5 ML SYR IV ONE (07:16)
[2019-02-28] MEDS ORDERED: MIDAZOLAM 2 MG/2 ML VIAL ONE (07:16)
[2019-02-28] MEDS ORDERED: diphenhydrAMINE 50 MG/ML 1 ML VIAL ONE (07:16)
[2019-02-28] MEDS ORDERED: fentaNYL (PF) 50 MCG/ML 2 ML AMP ONE (07:16)
[2019-02-28] MEDS ORDERED: PROTAMINE SULFATE 10 MG/ML 5 ML VIAL IV ONE (07:16)
[2019-02-28] MEDS ORDERED: LIDOCAINE 1% INJ 10MG/ML (20 ML MDV) ONE (07:16)
[2019-02-28] MEDS ORDERED: LIDOCAINE 1% INJ 10MG/ML (20 ML MDV) SQ ONE (08:31)
[2019-02-28] MEDS ORDERED: HEPARIN SODIUM 1,000 UN/ML (10ML VL) IV ONE ×2 (09:03→09:40)
[2019-02-28] MEDS ORDERED: IOPAMIDOL-250 100ML BTL INTRAARTER ONE (10:15)
[2019-02-28] MEDS ORDERED: ACETAMINOPHEN IV (For NPO) 1,000 MG in EMPTY BAG 1 BAG IVPB ONE (10:27)
[2019-02-28] MEDS ORDERED: ACETAMINOPHEN TAB 325 MG TAB PO PRN (10:27)
[2019-02-28] MEDS ORDERED: HYDROcodone/APAP 5-325MG 1 EACH TAB PO PRN (10:27)
[2019-02-28] MEDS ORDERED: ARTIFICIAL TEARS-HYPROMELLOSE DROPS 15 ML BTL BOTH EYES PRN (10:30)
[2019-02-28] MEDS: LACTATED RINGERS 1,000 ML IV SCH (11:58)
[2019-02-28 12:16] VITALS: BMI 35.9
[2019-02-28] MEDS ORDERED: MONTELUKAST 10 MG TAB PO SCH (21:00)
--- NOTE | 2019-02-28 21:14 | P.PCN ---
Preoperative Diagnosis: Diagnosis Atrial fibrillation, symptomatic, refractory to therapy, persistent Result Successful pulmonary vein isolation of all veins using cryo-ablation Complete entrance block in all 4 veins confirmed No evidence for phrenic nerve injury Esophageal deflection YES Electrical cardioversion with a synchronized shock across the chest YES Procedure details Patient was brought to the EP lab in a fasting state. Written informed consent was obtained prior to the procedure. Procedure performed under general anesthesia After initial muscle relaxant use, muscle relaxants were not given thereafter in order to assess phrenic nerve during procedure. Patient prepped and draped as per protocol Full cryo-set up with standard preparation of the cryoablation tools done. Femoral Venous access obtained on the right and left groins Venous and arterial Sheaths placed. Diagnostic catheters for the high right atrium, phrenic nerve stimulation and pacing, His bundle, RV and coronary sinus placed Intracardiac echo catheter placed. Long sheath placed in the right atrium Left and right transseptal catheterization performed under intracardiac echo guidance. Intravenous heparin with aCT above 300 Later, catheter positioning and balloon positioning in the left atrium, under intracardiac echo guidance Diagnostic EP study with Coronary sinus pacing and recording Baseline measurements Sinus cycle length 470 ms, OR interval 178 ms, QRS 91 ms, QT 392 ms AH interval 69 ms HV interval 41 ms Atrial pacing performed from the high right atrium and the coronary sinus RV pacing VA Wenckebach block greater than 600 ms when in sinus rhythm, AV node Wenckebach block for 70 ms Sinus recovery times at 600 500 400 ms were 1484, 1522 and 1563 ms respectively Transseptal catheterization performed RA pressure 16/7/12 LA pressure 26/5/15 Transseptal catheterization performed with standard sheath. The cryoablation sheath was then placed with an over the wire exchange without any acute complications. All 4 pulmonary veins were isolated in the following sequence: Left superior followed by left inferior followed by right superior followed by right inferior The cryo-ablation balloon was placed at the os of each vein 1.5 mL of IV dye was injected to confirm an occluded vein Goal during cryoablation was to achieve complete occlusion of the pulmonary vein, achieve -30 degrees C at 30 seconds and achieve -40 degrees C at 60 seconds and a time to effect of less than 60-90 seconds, . If not the balloon was repositioned to obtain this result After completion of Cryoblation with durations from 180-240 seconds, entrance block was confirmed with the Attain circular catheter in a roving fashion around the antrum of the pulmonary veins Phrenic nerve pacing was performed from the SVC, right innominate vein area and diaphragm voltage was monitored. Diaphragmatic contractions were also monitored manually for strength of contraction. Parameter goals for each cryo freeze Complete occlusion of the appropriate vein -30 degrees C by 30 seconds -40 degrees C by 60 seconds Minimum between minus 40-55 degrees C Thaw time greater than 10 seconds Balloon visualized by intracardiac echo The esophagus was intubated. Esophageal Temperature monitoring with a CIRCA catheter formed. Esophageal deflection for hypothermia of the esophagus below 30 degrees C Left superior pulmonary vein Complete isolation, entrance block Left inferior pulmonary vein Complete isolation, entrance block Right superior pulmonary vein, during phrenic nerve pacing Complete isolation, entrance block Right inferior pulmonary vein, during phrenic nerve pacing Complete isolation, entrance block At the end of the procedure the Achieve catheter was once again used to check for entrance block Phrenic nerve stimulation was performed to confirm diaphragmatic stimulation the end of the procedure Cine fluoroscopy was performed at the very end of the procedure to confirm movement of both diaphragms with inspiration and expiration At the end of the procedure the patient was extubated Heparin was reversed Venous sheaths were removed and hemostasis assured Procedures performed (PVI - CRYO Ablation) Diagnostic EP study CS pacing and recording Left and right transseptal catheterization Catheter the mapping of the tachycardia (NOT 3D mapping) Intracardiac echocardiography Pulmonary vein isolation with transseptal and comprehensive EPS, [id number] Electrical cardioversion with a synchronized shock across the chest 10141
[2019-02-28] MEDS: APIXABAN 5 MG TAB PO SCH (21:41)
[2019-02-28] MEDS: BRIMONIDINE TARTRATE 0.2% DROPS 5 ML BTL BOTH EYES SCH (21:41)
[2019-02-28] MEDS: METOPROLOL TARTRATE 50 MG TAB PO SCH (21:41)
[2019-02-28] MEDS ORDERED: diphenhydrAMINE 50 MG CAP PO ONE (22:15)
[2019-03-01] MEDS: SODIUM CHLORIDE 0.9% 1,000 ML IV SCH ×2 (02:32→02:33)
[2019-03-01] MEDS: LACTATED RINGERS 1,000 ML IV SCH (02:32)
[2019-03-01 07:29] VITALS: RESP 18
[2019-03-01] MEDS ORDERED: PANTOPRAZOLE 40 MG TABLET PO SCH (07:30)
--- NOTE | 2019-03-01 08:09 | P.DS ---
Providers Attending physician: Rojas Mackey Primary care physician: Tico Boston MD Hospital Course: Patient is doing well. She denies any chest discomfort dysphagia or odynophagia shortness of breath is next lightheadedness or palpitations She is ablating in the hallways Yesterday she had a reaction probably to a food product but she responded well to Benadryl This morning she is completely asymptomatic Groins of healed well no hematoma no swelling Blood pressure 122/77 mmHg pulse rate in the 80s she's afebrile 97.3F line heart sounds are normal and regular Breath sounds are clear no rhonchi no crackles Extremities warm no edema Groins implant Impression Persistent atrial fibrillation symptomatic Status post cryoablation pulmonary veins with complete isolation of all 4 pulmonary veins Cardioverted subsequently to sinus rhythm Cardiomyopathy, global even when she was in sinus rhythm Obstructive sleep apnea Plan Long-acting beta blockers, metoprolol succinate 100 mg by mouth daily Stop diltiazem May add digoxin in the future if needed Avoid Cardizem Continue anticoagulation lifelong Add a detailed discussion with the patient and if she has recurrence of atrial fibrillation I would consider dofetilide Her sodium is 140 potassium 4.5 BUN is 15 creatinine 0.62 hemoglobin is normal Plan - Discharge Summary Discharge Rx Participant: Yes New Discharge Prescriptions: New Metoprolol Succinate [Toprol XL] 100 mg PO DAILY #90 tab.er.24h Continue Montelukast [Singulair] 10 mg PO HS Loratadine [Claritin] 10 mg PO DAILY Thera Tears 1 drop BOTH EYES BID PRN PRN Reason: DRY EYES Brimonidine Tartrate [Alphagan P 0.2% Ophth Soln] 1 drops BOTH EYES BID Omeprazole [PriLOSEC] 20 mg PO BID Apixaban [Eliquis] 5 mg PO BID #60 tab Levalbuterol Hfa Inhaler [Xopenex Hfa Inhaler] 2 inhalation INHALATION QID PRN PRN Reason: sob Acetaminophen [Tylenol Arthritis] 650 mg PO Q8H PRN PRN Reason: Pain Vitamin A 8,000 unit PO DAILY Cholecalciferol (Vitamin D3) [Vitamin D3] 5,000 unit PO DAILY Discontinued Metoprolol Tartrate [Lopressor] 50 mg PO BID #60 tab Diltiazem Cd [Cardizem CD] 240 mg PO QAM Discharge Medication List Montelukast [Singulair] 10 mg PO HS 09/19/16 [History] Loratadine [Claritin] 10 mg PO DAILY 08/07/17 [History] Thera Tears 1 drop BOTH EYES BID PRN 03/13/18 [History] Brimonidine Tartrate [Alphagan P 0.2% Ophth Soln] 1 drops BOTH EYES BID 10/02/18 [History] Omeprazole [PriLOSEC] 20 mg PO BID 10/02/18 [History] Apixaban [Eliquis] 5 mg PO BID #60 tab 10/04/18 [Rx] Levalbuterol Hfa Inhaler [Xopenex Hfa Inhaler] 2 inhalation INHALATION QID PRN 11/07/18 [History] Acetaminophen [Tylenol Arthritis] 650 mg PO Q8H PRN 12/14/18 [History] Cholecalciferol (Vitamin D3) [Vitamin D3] 5,000 unit PO DAILY 02/26/19 [History] Vitamin A 8,000 unit PO DAILY 02/26/19 [History] Metoprolol Succinate [Toprol XL] 100 mg PO DAILY #90 tab.er.24h 02/28/19 [Rx] Follow up Appointment(s)/Referral(s): Rojas Mackey MD [STAFF PHYSICIAN] - 2 Weeks (Follow-up with Dr. Dr. Bailon/patrice within 2 weeks Follow-up with Dr. Loo as needed) Activity/Diet/Wound Care/Special Instructions: Post EP study - Ablation instructions 1. Keep access sites dry for 2 days. 2. No heavy lifting or straining for 2 days. 3. Avoid bending the hips repeatedly for 2 days. 4. You may go up and down stairs slowly Call if the following is noted 1. Bleeding, increasing swelling or pain at the access sites. 2. Increasing chest discomfort, especially upon taking a deep breath. 3. Increasing shortness of breath, at rest or with exertion. 4. Undue cough / phlegm 5. Difficulty or pain while swallowing. 6. Pain or change in color in the extremities. 7. Fever, chills, rigors. 8. Increasing headache or neurologic symptoms. 9. Dizziness, fainting, palpitations Follow-up with Dr. Dr. Bailon/patrice in 1-2 weeks Please no change in medications Stop diltiazem completely Stop metoprolol tartrate Start metoprolol succinate 100 mg by mouth daily Continue ELIQUIS lifelong No other changes
[2019-03-01] MEDS: METOPROLOL TARTRATE 50 MG TAB PO SCH (08:45)
[2019-03-01] MEDS: APIXABAN 5 MG TAB PO SCH (08:45)
[2019-03-01] MEDS: BRIMONIDINE TARTRATE 0.2% DROPS 5 ML BTL BOTH EYES SCH (08:45)
[2019-03-01 11:43] VITALS: BP 129/84; PULSE 65; TEMP 97.4
== END 2019-03-01 12:30 | disposition home or self-care (01) ==
LOC: CATHEP 06:04 → 1SOBS 10:22 → CATHEP 03-01 12:30
PROVIDERS: ATTEND Internal Medicine Clinical Cardiac Electrophysiology
DX: I48.1 Persistent atrial fibrillation (principal); I42.0 Dilated cardiomyopathy; I07.1 Rheumatic tricuspid insufficiency; J45.909 Unspecified asthma, uncomplicated; M19.90 Unspecified osteoarthritis, unspecified site; K27.9 Peptic ulcer, site unspecified, unspecified as acute or chronic, without hemorrhage or perforation; K21.9 Gastro-esophageal reflux disease without esophagitis; I11.9 Hypertensive heart disease without heart failure; I25.10 Atherosclerotic heart disease of native coronary artery without angina pectoris; G43.909 Migraine, unspecified, not intractable, without status migrainosus; E78.2 Mixed hyperlipidemia; G47.33 Obstructive sleep apnea (adult) (pediatric); H40.9 Unspecified glaucoma; R41.3 Other amnesia; Z79.01 Long term (current) use of anticoagulants; Z79.899 Other long term (current) drug therapy; Z82.49 Family history of ischemic heart disease and other diseases of the circulatory system; Z88.0 Allergy status to penicillin; Z91.09 Other allergy status, other than to drugs and biological substances; Z90.49 Acquired absence of other specified parts of digestive tract
CPT/HCPCS: 85347; 93662; 93609; 93656; C1759; C1769 ×4; C1894 ×2; C1730 ×2; C1893; C1733; C1766; J2250; J2720; J1200; J1644 ×2; J2930; J2001; J3010; J0131; J0330; J2704; Q9966

== ENCOUNTER 2019-07-17 19:18 | Observation (INO) | payer MEDICARE ==
--- NOTE | 2019-07-17 19:50 | ED ---
Chest Pain HPI - General Chief Complaint: Chest Pain Stated Complaint: chest pain Time Seen by Provider: 07/17/19 19:33 Source: patient, RN notes reviewed, old records reviewed Mode of arrival: ambulatory Limitations: no limitations - History of Present Illness Initial Comments: This is a 69-year-old female the ER for evaluation. Patient presents today for evaluation regarding chest pain. Episodic left-sided stabbing chest pain. Patient is currently on blood thinners. No recent travel history or sick contacts. No fevers, congestion. Symptoms have been going on since this morning she had one episode after she woke up in one episode this afternoon. Pain was sharp stabbing left-sided left breast with resolution after a few minutes. Patient has no fevers. No other recent travel history sick contacts. Patient just her from high blood pressure high cholesterol and diabetes. She has had a new diagnosis of A. fib she is on blood thinners as she has been directed. She has been taking all medications as directed. Patient had a stress test about a year ago MD Complaint: chest pain -: hour(s) Onset: during exertion Pain Location: left chest Pain Radiation: none Severity: moderate Severity scale (1-10): 7 Quality: sharp Consistency: intermittent, now resolved Improves With: nothing Worsens With: nothing Anginal Symptoms: dyspnea, sense of impending doom Other Symptoms: palpitations Treatments Prior to Arrival: none - Related Data Home Medications Medication Instructions Recorded Confirmed Montelukast [Singulair] 10 mg PO HS 09/19/16 07/17/19 Loratadine [Claritin] 10 mg PO DAILY 08/07/17 07/17/19 Thera Tears 1 drop BOTH EYES BID 03/13/18 07/17/19 Brimonidine Tartrate [Alphagan P 1 drops BOTH EYES BID 10/02/18 07/17/19 0.2% Ophth Soln] Omeprazole [PriLOSEC] 20 mg PO DAILY 10/02/18 07/17/19 Levalbuterol Hfa Inhaler [Xopenex 2 inhalation INHALATION QID PRN 11/07/18 07/17/19 Hfa Inhaler] Previous Rx's Medication Instructions Recorded Apixaban [Eliquis] 5 mg PO BID #60 tab 10/04/18 Metoprolol Succinate [Toprol XL] 100 mg PO DAILY #90 tab.er.24h 02/28/19 Allergies Allergy/AdvReac Type Severity Reaction Status Date / Time alcohol Allergy Anaphylaxis Verified 07/17/19 20:23 atorvastatin [From Lipitor] Allergy joint Verified 07/17/19 20:23 pain/hives chocolate flavor Allergy Anaphylaxis Verified 07/17/19 20:23 corn Allergy Anaphylaxis Verified 07/17/19 20:23 corn syrup Allergy Anaphylaxis Verified 07/17/19 20:23 Iodinated Contrast Media Allergy Dyspnea Verified 07/17/19 20:23 [Iodinated Contrast Media - IV Dye] Penicillins Allergy Dyspnea Verified 07/17/19 20:23 clindamycin AdvReac Nausea Verified 07/17/19 20:23 Review of Systems ROS Statement: Those systems with pertinent positive or pertinent negative responses have been documented in the HPI. ROS Other: All systems not noted in ROS Statement are negative. EKG Findings - EKG Comments: EKG Findings:: EKG shows NSR 65 AK 166 QRS 78 QTc 422 Past Medical History Past Medical History: Atrial Fibrillation, Asthma, Eye Disorder, GERD/Reflux, Hyperlipidemia, Hypertension, Neurologic Disorder, Osteoarthritis (OA) Additional Past Medical History / Comment(s): migraines, hx ulcer, hx diverticulitis, hx [place], Hx rheumatic fever, being treated for glaucoma History of Any Multi-Drug Resistant Organisms: None Reported Past Surgical History: Adenoidectomy, Bowel Resection, Breast Surgery, Ear Surgery, Joint Replacement, Orthopedic Surgery, Tonsillectomy Additional Past Surgical History / Comment(s): left ear drum surgery, hu breast reduction, left knee arthroscopy, colonoscopy, LT TKA, BILAT CATARACT SURGERY, GLAUCOMA SX, laser surgery on eye, cardioversion 10/02/2018 Past Anesthesia/Blood Transfusion Reactions: Motion Sickness, Postoperative Nausea & Vomiting (PONV) Past Psychological History: No Psychological Hx Reported Past Alcohol Use History: Occasional - Past Family History Sister(s) Family Medical History: Cancer Additional Family Medical History / Comment(s): Sister of aneurysm, 3 nieces w/hx. aneurysm. General Exam Limitations: no limitations General appearance: alert, in no apparent distress Head exam: Present: atraumatic, normocephalic, normal inspection Eye exam: Present: normal appearance, PERRL, EOMI. Absent: scleral icterus, conjunctival injection, periorbital swelling ENT exam: Present: normal exam, mucous membranes moist Neck exam: Present: normal inspection. Absent: tenderness, meningismus, lym phadenopathy Respiratory exam: Present: normal lung sounds bilaterally. Absent: respiratory distress, wheezes, rales, rhonchi, stridor Cardiovascular Exam: Present: regular rate, normal rhythm, normal heart sounds. Absent: systolic murmur, diastolic murmur, rubs, gallop, clicks GI/Abdominal exam: Present: soft, normal bowel sounds. Absent: distended, tenderness, guarding, rebound, rigid Extremities exam: Present: normal inspection, full ROM, normal capillary refill. Absent: tenderness, pedal edema, joint swelling, calf tenderness Back exam: Present: normal inspection Neurological exam: Present: alert, oriented X3, CN II-XII intact Psychiatric exam: Present: normal affect, normal mood Skin exam: Present: warm, dry, intact, normal color. Absent: rash Course Vital Signs 07/17/19 19:22 Temperature 97.8 F Pulse Rate 82 Respiratory 18 Rate Blood Pressure 171/78 O2 Sat by Pulse 98 Oximetry - Reevaluation(s) Reevaluation #1: 07/17/19 19:50 Medical records reviewed Reevaluation #2: 07/17/19 22:[address] angio chest negative for acute disesae - Consultations Consultation #1: Spoke with spoke with Dr Javi Bentley for admission Chest Pain MDM - MDM -year-old female the ER here for evaluation of chest pain stabbing left-sided chest pain that is intermittent but episodic, recurrent out ER stay and patient's continued to have chest pain currently. We'll admit for cardiac observation Disposition Clinical Impression: Atrial fibrillation with RVR, Chest pain Disposition: ADMITTED IP TO THIS HOSP Condition: Undetermined Is patient prescribed a controlled substance at d/c from ED?: No Referrals: Tico Boston MD [Primary Care Provider] - 1-2 days
[2019-07-17] MEDS ORDERED: SODIUM CHLORIDE 0.9% 1,000 ML IV STA (19:51)
[2019-07-17 20:17] LABS: Basophils # (A) 0.1 k/uL (0-0.2); Basophils % (A) 1 %; Eosinophils # (A) 0.2 k/uL (0-0.7); Eosinophils % (A) 3 %; HCT 43.9 % (34.0-46.0); HGB 14.3 gm/dL (11.4-16.0); Lymphocytes # (A) 1.8 k/uL (1.0-4.8); Lymphocytes % (A) 25 %; MCH 30.1 pg (25.0-35.0); MCHC 32.6 g/dL (31.0-37.0); MCV 92.3 fL (80.0-100.0); Mean Platelet Volume 7.3; Monocytes # (A) 0.5 k/uL (0-1.0); Monocytes % (A) 6 %; Neutrophils # (A) 4.6 k/uL (1.3-7.7); Neutrophils % (A) 63 %; Platelet Count 181 k/uL (150-450); RBC 4.76 m/uL (3.80-5.40); RDW 13.6 % (11.5-15.5); WBC 7.2 k/uL (3.8-10.6)
[2019-07-17 20:30] LABS: ALT 38 U/L (9-52); AST 32 U/L (14-36); African American GFR (CKD) >90 (>60 ml/min/1.73 sqM); Albumin 4.3 g/dL (3.5-5.0); Alkaline Phosphatase 127 U/L (38-126); Anion Gap 10 mmol/L; Blood Urea Nitrogen 15 mg/dL (7-17); Calcium 9.5 mg/dL (8.4-10.2); Carbon Dioxide 25 mmol/L (22-30); Chloride 106 mmol/L (98-107); Creatine Kinase 39 U/L (30-135); Glucose 94 mg/dL (74-99); Magnesium 2.3 mg/dL (1.6-2.3); Potassium 4.5 mmol/L (3.5-5.1); Sodium 141 mmol/L (137-145); Total Bilirubin 0.4 mg/dL (0.2-1.3); Total Protein 7.2 g/dL (6.3-8.2)
[2019-07-17 20:54] LABS: INR 0.9 (<1.2); Partial Thromboplastin Time 23.5 sec (22.0-30.0); Prothrombin Time 9.9 sec (9.0-12.0)
[2019-07-17] MEDS ORDERED: methylPREDNISolone SOD SUCCI 125 MG/2 ML VIAL IV STA (21:28)
[2019-07-17] MEDS ORDERED: FAMOTIDINE 20 MG/2 ML VIAL IV STA (21:28)
[2019-07-17] MEDS ORDERED: diphenhydrAMINE 50 MG/ML 1 ML VIAL IVP STA (21:28)
--- NOTE | 2019-07-17 22:28 | CT ---
CT angiogram of the chest abdomen pelvis with runoff. History chest pain. Atrial fibrillation. Comparison none. TECHNIQUE: Multiple axial sections were obtained from the thoracic inlet to the diaphragm without contrast. Mult iple axial sections were obtained from the thoracic inlet to the bottom of the feet with intravenous contrast. The contrast was Isovue 125 mL. FINDINGS: Mediastinum is within normal limits. There is no thoracic aortic aneurysm or dissection. I see no omar ling defects in the pulmonary arteries. The lungs are clear of infiltrate. There is arterial flow in the celiac artery and superior mesenteric artery. There is bilateral arteri al flow in the renal arteries. There is arterial flow in the common internal and external iliac arter ies bilaterally. There is bilateral arterial flow in the femoral arteries. I see no evidence of hemod ynamic stenosis in the abdomen and chest. Kidneys show satisfactory contrast opacification. There is no hydronephrosis. There is no retroperito kristen adenopathy. Liver spleen stomach pancreas gallbladder appear normal. Bile ducts are not dilated. Appendix appears normal. There are multiple sigmoid diverticula. There is no sign of diverticulitis. There is no ascites or free air. Femoral arteries appear widely patent. There is bilateral patency of the popliteal arteries. There is metal artifact from left knee prosthesis. There is arterial flow in the tibial arteries bilaterally. There is patency of the tibial artery trifurcation bilaterally. There is arterial flow in the dorsal is pedis artery bilaterally. There is bilateral arterial flow in the posterior tibial arteries at the ankle. I see no evidence of hemodynamic stenosis. There are some mild spondylotic changes in the thoracic and lumbar spine. There is no compression fra cture. Bladder distends smoothly. Uterus is anteverted. There is no inguinal hernia. IMPRESSION: Negative CT angiogram of the chest abdomen pelvis with runoff. No evidence of hemodynamic stenosis. N o evidence of arterial dissection. No evidence of pulmonary embolism.
[2019-07-17] MEDS ORDERED: HEPARIN SODIUM,PORCINE 5,000 UNIT/ML 1 ML VIAL IV ONE (22:37)
[2019-07-17] MEDS ORDERED: NITROGLYCERIN SL TABS 0.4 MG TAB SUBLINGUAL PRN (22:37)
[2019-07-17] MEDS ORDERED: HEPARIN SODIUM,PORCINE 5,000 UNIT/ML 1 ML VIAL IV PRN (22:37)
[2019-07-17] MEDS ORDERED: ASPIRIN 81 MG PO STA (22:37)
[2019-07-17] MEDS ORDERED: HEPARIN SOD,PORK IN 0.45% NACL 25,000 UNIT in 0.45% NACL 1 250ML.BAG IV SCH (22:45)
[2019-07-18 04:49] VITALS: BMI 34.0
[2019-07-18 06:38] LABS: Mean Platelet Volume 7.6; Platelet Count 188 k/uL (150-450)
[2019-07-18 07:23] LABS: Cholesterol 253 mg/dL (<200); HDL Cholesterol 51 mg/dL (40-60); LDL Cholesterol,Calculated 169 mg/dL (0-99); Triglycerides 164 mg/dL (<150)
[2019-07-18] MEDS ORDERED: ACETAMINOPHEN TAB 500 MG TAB PO PRN (08:15)
[2019-07-18 08:51] VITALS: RESP 16
[2019-07-18] MEDS ORDERED: METOPROLOL TARTRATE 25 MG TAB PO SCH (09:00)
[2019-07-18] MEDS ORDERED: ASPIRIN 325 MG TAB PO SCH (09:00)
[2019-07-18] MEDS ORDERED: ASPIRIN 81 MG PO SCH (09:00)
[2019-07-18] MEDS ORDERED: ATORVASTATIN 80 MG TAB PO SCH (09:00)
--- NOTE | 2019-07-18 09:26 | P.CRDCN ---
History of Present Illness Consult date: 07/18/19 Requesting physician: Gurwinder Caldwell Consult reason: chest pain Chief complaint: Chest pain History of present illness: This is a 69-year-old female who follows with Dr. Bailon in the off ice, she also sees Dr. Mackey for her electrophysiology needs. She has a known history of persistent atrial fibrillation for which the patient underwent pulmonary vein isolation and ablation procedure by Dr. Mackey. She also has history of hyperlipidemia, family history of premature coronary artery disease, hypertension, mild performed in 2010 coronary arteries by cardiac catheterization performed in 2010, presents to the hospital with symptoms of chest discomfort which she describes as sharp stabbing pains that last 15-20 seconds in duration each time. She denies any associated shortness of breath or diaphoresis, she states that she sweats most of the time but didn't notice any w orsening during the symptoms. Patient states that her most recent stress test was a Lexiscan performed in January of this year which was reported to be normal according to her. EKG on presentation here showed a normal sinus rhythm with no acute changes. CTA of the aorta was performed on arrival here which was negative, no evidence of arterial dissection, no evidence of pulmonary embolism. Blood pressure on arrival here 170/70 with a heart rate in the 80s, 90% on room air. White blood cell count 7.2, hemoglobin 14.3, platelet count 188. Sodium 141, potassium 4.5, BUN 15 and creatinine 0.6. Troponins are negative 3. Cholesterol 253, triglycerides 164, LDL 169, HDL 51. At the time of my examination this morning the patient is currently chest pain-free. Past Medical History Past Medical History: Atrial Fibrillation, Asthma, Eye Disorder, GERD/Reflux, Hyperlipidemia, Hypertension, Neurologic Disorder, Osteoarthritis (OA) Additional Past Medical History / Comment(s): migraines, hx ulcer, hx diverticulitis, hx [place], Hx rheumatic fever, being treated for glaucoma History of Any Multi-Drug Resistant Organisms: None Reported Past Surgical History: Adenoidectomy, Bowel Resection, Breast Surgery, Ear Surgery, Joint Replacement, Orthopedic Surgery, Tonsillectomy Additional Past Surgical History / Comment(s): left ear drum surgery, hu breast reduction, left knee arthroscopy, colonoscopy, LT TKA, BILAT CATARACT SURGERY, GLAUCOMA SX, laser surgery on eye, cardioversion 10/02/2018 Past Anesthesia/Blood Transfusion Reactions: Motion Sickness, Postoperative Nausea & Vomiting (PONV) Past Psychological History: No Psychological Hx Reported Smoking Status: Never smoker Past Alcohol Use History: Occasional Past Drug Use History: None Reported - Past Family History Sister(s) Family Medical History: Cancer Additional Family Medical History / Comment(s): Sister of aneurysm, 3 nieces w/hx. aneurysm. Medications and Allergies Home Medications Medication Instructions Recorded Confirmed Type Montelukast [Singulair] 10 mg PO HS 09/19/16 07/17/19 History Thera Tears 1 drop BOTH EYES BID 03/13/18 07/17/19 History Brimonidine Tartrate [Alphagan P 1 drops BOTH EYES BID 10/02/18 07/17/19 History 0.2% Ophth Soln] Omeprazole [PriLOSEC] 20 mg PO DAILY 10/02/18 07/17/19 History Apixaban [Eliquis] 5 mg PO BID #60 tab 10/04/18 07/17/19 Rx Levalbuterol Hfa Inhaler [Xopenex 2 inhalation INHALATION QID PRN 11/07/18 07/17/19 History Hfa Inhaler] Metoprolol Succinate [Toprol XL] 100 mg PO DAILY #90 tab.er.24h 02/28/19 07/17/19 Rx Aspirin 81 mg PO DAILY chew 07/18/19 Rx Rosuvastatin Calcium [Crestor] 10 mg PO DAILY #30 tab 07/18/19 Rx Allergies Allergy/AdvReac Type Severity Reaction Status Date / Time alcohol Allergy Anaphylaxis Verified 07/17/19 20:23 chocolate flavor Allergy Anaphylaxis Verified 07/17/19 20:23 corn Allergy Anaphylaxis Verified 07/17/19 20:23 corn syrup Allergy Anaphylaxis Verified 07/17/19 20:23 Iodinated Contrast Media Allergy Dyspnea Verified 07/17/19 20:23 [Iodinated Contrast Media - IV Dye] Penicillins Allergy Dyspnea Verified 07/17/19 20:23 atorvastatin [From Lipitor] AdvReac Severe Anaphylaxis Verified 07/18/19 06:37 clindamycin AdvReac Nausea Verified 07/17/19 20:23 Physical Exam Vitals: Vital Signs Temp Pulse Pulse Resp BP BP Pulse Ox 07/18/19 07:20 97.6 F 90 16 142/78 96 07/18/19 04:00 97.8 F 90 17 151/79 95 07/18/19 03:50 75 18 167/97 07/18/19 03:49 97.8 F 90 17 151/79 97 07/18/19 02:00 78 18 164/87 99 07/18/19 00:10 67 18 155/77 07/17/19 23:20 65 18 157/85 07/17/19 21:50 67 13 163/84 07/17/19 21:40 67 18 154/87 07/17/19 21:10 64 17 158/86 07/17/19 21:00 63 20 159/78 07/17/19 20:10 63 19 170/87 07/17/19 19:22 97.8 F 82 18 171/78 98 Intake and Output 07/17/19 07/18/19 07/18/19 22:59 06:59 14:59 Intake Total 1000 442.071 Balance 1000 442.071 Intake: Intake, IV Titration 1000 82.071 Amount Heparin Sod,Pork in 0.45% 82.071 NaCl 25,000 unit In 0.45 % NaCl 1 250ml.bag @ 12 UNITS/KG/HR 10.07 mls/hr IV .Q24H [facility] Rx#: [id number] Sodium Chloride 0.9% 1, 1000 000 ml @ 999 mls/hr IV . Q1H1M [facility] Rx#:[id number] Oral 360 Other: Voiding Method Toilet # Voids 0 Weight 83.915 kg 81.8 kg PHYSICAL EXAMINATION: GENERAL: The 1-year-old female in no acute distress at the time of my examination HEENT: Head is atraumatic, normocephalic. Pupils equal, round. Sclera anicteric. Conjunctiva are clear. Mucous membranes of the mouth are moist. Neck is supple. There is no elevated jugular venous pressure. No carotid bruit is heard. HEART EXAMINATION: Heart S1 S2 1 systolic ejection murmur is heard CHEST EXAMINATION: Lungs are clear to auscultation and precussion. No chest wall tenderness is noted on palpation or with deep breathing. ABDOMEN: Soft, nontender. Bowel sounds are heard. No organomegaly noted. EXTREMITIES: 2+ peripheral pulses with no evidence of peripheral edema and no calf tenderness noted. NEUROLOGIC patient is awake, alert and oriented 3 . . Results 07/18/19 06:10 07/17/19 20:11 Cardiac Enzymes 07/17/19 07/17/19 07/18/19 Range/Units 20:11 20:11 01:34 AST 32 (14-36) U/L Troponin I <0.012 <0.012 (0.000-0.034) ng/mL 07/18/19 Range/Units 06:10 AST (14-36) U/L Troponin I <0.012 (0.000-0.034) ng/mL Coagulation 07/17/19 07/18/19 Range/Units 20:11 06:10 PT 9.9 (9.0-12.0) sec APTT 23.5 38.6 H (22.0-30.0) sec Lipids 07/18/19 Range/Units 06:10 Triglycerides 164 H (<150) mg/dL Cholesterol 253 H (<200) mg/dL HDL Cholesterol 51 (40-60) mg/dL CBC 07/17/19 07/18/19 Range/Units 20:11 06:10 WBC 7.2 (3.8-10.6) k/uL RBC 4.76 (3.80-5.40) m/uL Hgb 14.3 (11.4-16.0) gm/dL Hct 43.9 (34.0-46.0) % Plt Count 181 188 (150-450) k/uL Comprehensive Metabolic Panel 07/17/19 Range/Units 20:11 Sodium 141 (137-145) mmol/L Potassium 4.5 (3.5-5.1) mmol/L Chloride 106 (98-107) mmol/L Carbon Dioxide 25 (22-30) mmol/L BUN 15 (7-17) mg/dL Creatinine 0.66 (0.52-1.04) mg/dL Glucose 94 (74-99) mg/dL Calcium 9.5 (8.4-10.2) mg/dL AST 32 (14-36) U/L ALT 38 (9-52) U/L Alkaline Phosphatase 127 H (38-126) U/L Total Protein 7.2 (6.3-8.2) g/dL Albumin 4.3 (3.5-5.0) g/dL Current Medications Generic Name Dose Route Start Last Admin Trade Name Cm PRN Reason Stop Dose Admin Acetaminophen 500 mg 07/18/19 08:15 07/18/19 08:33 Tylenol Tab PO 500 mg Q6HR PRN Administration Fever and/ or Mild Pain Aspirin 81 mg 07/18/19 09:00 07/18/19 08:29 Aspirin PO Not Given DAILY [facility] Heparin Sodium (Porcine) 0 unit 07/17/19 22:37 Heparin IV Q6HR PRN Low PTT Protocol Heparin Sodium/Sodium Chloride 250 mls @ 10.07 mls/hr 07/17/19 22:45 07/18/19 07:45 25,000 unit/ Sodium Chloride IV 15 units/kg/hr .Q24H [facility] 12.587 mls/hr Titration Protocol 12 UNITS/KG/HR Metoprolol Tartrate 25 mg 07/18/19 09:00 07/18/19 08:35 Lopressor PO 25 mg BID [facility] Administration Nitroglycerin 0.4 mg 07/17/19 22:37 Nitrostat SUBLINGUAL Q5M PRN Chest Pain Intake and Output 07/17/19 07/18/19 07/18/19 22:59 06:59 14:59 Intake Total 1000 442.071 Balance 1000 442.071 Intake: Intake, IV Titration 1000 82.071 Amount Heparin Sod,Pork in 0.45% 82.071 NaCl 25,000 unit In 0.45 % NaCl 1 250ml.bag @ 12 UNITS/KG/HR 10.07 mls/hr IV .Q24H [facility] Rx#: [id number] Sodium Chloride 0.9% 1, 1000 000 ml @ 999 mls/hr IV . Q1H1M [facility] Rx#:[id number] Oral 360 Other: Voiding Method Toilet # Voids 0 Weight 83.915 kg 81.8 kg 07/18/19 06:10 07/17/19 20:11 EKG Interpretations (text) EKG shows a normal sinus rhythm with no acute changes. Assessment and Plan Plan: Assessment and plan #1 chest pain, atypical for acute coronary syndrome. Troponins negative 3. EKG shows normal sinus rhythm with no acute changes. #2 history of persistent atrial fibrillation for which the patient underwent pulmonary vein isolation and ablation by Dr. Mackey. #3 hypertension #4 hyperlipidemia #5 mild coronary artery disease by cardiac catheterization performed in 2010 #6 moderate to severe tricuspid regurg, mild to moderate MR and mild aortic stenosis Plan Patient has had an ALLERGIC reaction to Lipitor in the past, we will start her on Crestor. Obtain echocardiogram with Doppler study. Obtain recent Claudia scan performed in the office. Discontinue the IV heparin and resume the patient's Eliquis. Resume metoprolol. Addendum patient did have a stress test performed in the office which did show some evidence of reversible ischemia and subsequent to that underwent a cardiac catheterization which did not reveal any significantly obstructive coronary artery disease. From our perspective patient may be able to be discharged home today, we will make a follow-up appointment for her in the office post discharge. DNP note has been reviewed, I agree with a documented findings and plan of care. Patient was seen and examined.
[2019-07-18 11:19] VITALS: BP 131/66; PULSE 72; TEMP 97.8
--- NOTE | 2019-07-18 11:57 | ECHOF ---
Referral Reason:cp MEASUREMENTS -------- HEIGHT: 152.4 cm WEIGHT: 81.6 kg BP: 157/79 IVSd: 1.3 cm (0.6 - 1.1) LVIDd: 4.3 cm (3.9 - 5.3) LVPWd: 1.5 cm (0.6 - 1.1) IVSs: 1.7 cm LVIDs: 3.6 cm LVPWs: 1.7 cm LA Diam: 4.7 cm (2.7 - 3.8) LAESV Index (A-L): 42.24 ml/m Ao Diam: 3.0 cm (2.0 - 3.7) AV Cusp: 1.4 cm (1.5 - 2.6) LA Diam: 3.4 cm (2.7 - 3.8) MV EXCURSION: 18.351 mm (> 18.000) MV EF SLOPE: 57 mm/s (70 - 150) EPSS: 0.3 cm MV E Demetrius: 0.81 m/s MV DecT: 197 ms MV A Demetrius: 0.81 m/s MV E/A Ratio: 1.00 RAP: 5.00 mmHg RVSP: 17.13 mmHg FINDINGS -------- Sinus rhythm. This was a techncally difficult study with suboptimal views, , Lumason utilized for enhancement of im ages. The left ventricular size is normal. There is mild concentric left ventricular hypertrophy. Overa ll left ventricular systolic function is normal with, an EF between 55 - 60 %. The diastolic fillin g pattern is normal for the age of the patient 12.69. The right ventricle is normal in size. The left atrium is moderately dilated. LA is severely dilated >40 ml/m2 The right atrial size is normal. 5.0mg OF Lumason UTLIZED: 2 OR MORE WALL SEGMENTS NOT VISUALIZED. There is mild aortic valve sclerosis. There is no evidence of aortic regurgitation. Mild mitral annular calcification present. Mild mitral regurgitation is present. Mild tricuspid regurgitation present. Right ventricular systolic pressure is normal at < 35 mmHg. There is no evidence of pulmonary hypertension. The pulmonic valve was not well visualized. CONCLUSIONS -------- 1. Sinus rhythm. 2. This was a techncally difficult study with suboptimal views, , Lumason utilized for enhancement of images. 3. The left ventricular size is normal. 4. There is mild concentric left ventricular hypertrophy. 5. Overall left ventricular systolic function is normal with, an EF between 55 - 60 %. 6. The diastolic filling pattern is normal for the age of the patient 12.69 7. The right ventricle is normal in size. 8. The left atrium is moderately dilated. 9. LA is severely dilated >40 ml/m2 10. The right atrial size is normal. 11. 5.0mg OF Lumason UTLIZED: 2 OR MORE WALL SEGMENTS NOT VISUALIZED. 12. There is mild aortic valve sclerosis. 13. Mild mitral annular calcification present. 14. Mild mitral regurgitation is present. 15. Mild tricuspid regurgitation present. 16. Right ventricular systolic pressure is normal at < 35 mmHg. 17. There is no evidence of pulmonary hypertension. 18. The pulmonic valve was not well visualized. MACHINE FEEDER RAW STOCK: Joan Giang RDCS
[2019-07-18] MEDS ORDERED: APIXABAN 5 MG TAB PO SCH (12:00)
[2019-07-19] MEDS ORDERED: METOPROLOL SUCCINATE (ER) 100 MG TAB.ER.24H PO SCH (09:00)
--- NOTE | 2019-07-20 23:16 | P.HPIM ---
History of Present Illness H&P Date: 07/18/19 Chief Complaint: Chest sharp pain History of presenting complaint: This is a pleasant 69-year-old patient of Dr. Locke. Also follows with Dr. Bailon is a assistant hvac mechanic and Dr. Mackey as electrophysiology physician. Patient has undergone pulmonary vein isolation and ablation by Dr. Mackey for persistent atrial fibrillation the past. Also had the cardiac catheterization 2011 found to have mild disease. In January of this year she had a negative nuclear stress test. Patient presented with left chest burning sensation for 15-20 seconds. Dressing on and off for several hours. No radiation. My shortness of breath. [place] tired. No dizziness. No fever no chills. Admitted for the same. Currently he was consulted. CT angiogram of the heart was performed in the ER that was negative. Review of systems: GEN.: Tired EYES: None HEENT: None NECK: None RESPIRATORY: None CARDIOVASCULAR: As above GASTROINTESTINAL: None GENITOURINARY: None MUSCULOSKELETAL: None LYMPHATICS: None HEMATOLOGICAL: None PSYCHIATRY: None NEUROLOGICAL: None Social history: Does not smoke. No alcohol. . Physical examination: VITAL SIGNS: 97.8, 82, 18, 171/78, 98% room air GENERAL: BMI 34.1, sitting up, at the edge of the bed, ". EYES: Pupils equal. Conjunctiva normal. HEENT: External appearance of nose and ears normal, oral cavity grossly normal. NECK: JVD not raised; masses not palpable. HEART: First and second heart sounds are normal; no edema. LUNGS: Respiratory rate normal; clear to auscultation. ABDOMEN: Soft, nontender, liver spleen not palpable, no masses palpable. PSYCH: Alert and oriented x3; mood and affect normal. NEUROLOGICAL: Cranial nerves grossly intact; no facial asymmetry, power and sensation grossly intact. LYMPHATICS: No lymph nodes palpable in the axilla and neck Musculoskeletal: Evidence of OA in the hands INVESTIGATIONS, reviewed in the clinical context: White count 7.2 hemoglobin 14.3 potassium 4.5 creatinine 0.90 Troponin I 3 negative LDL 169 ProBNP to 256 EKG tracing-personally reviewed by me normal sinus rhythm CT of the aorta with runoff-negative Assessment: -This patient left-sided anterior chest wall pain sharp lasting 15-20 seconds multiple times, possible cardiac. Given multiple cardiac risk factors need to make sure is not cardiac. -Paroxysmal atrial fibrillation currently in sinus rhythm -Asthma -GERD -Hyperlipidemia -Essential hypertension -Primary osteoarthritis Plan: Home medications resumed. Cardiology was consulted. Serial cardiac enzymes was negative. Did order 2-D echocardiogram. Cardiology did start the patient on Crestor. Past Medical History Past Medical History: Atrial Fibrillation, Asthma, Eye Disorder, GERD/Reflux, Hyperlipidemia, Hypertension, Neurologic Disorder, Osteoarthritis (OA) Additional Past Medical History / Comment(s): migraines, hx ulcer, hx diverticulitis, hx [place], Hx rheumatic fever, being treated for glaucoma History of Any Multi-Drug Resistant Organisms: None Reported Past Surgical History: Adenoidectomy, Bowel Resection, Breast Surgery, Ear Surgery, Joint Replacement, Orthopedic Surgery, Tonsillectomy Additional Past Surgical History / Comment(s): left ear drum surgery, hu breast reduction, left knee arthroscopy, colonoscopy, LT TKA, BILAT CATARACT SURGERY, GLAUCOMA SX, laser surgery on eye, cardioversion 10/02/2018 Past Anesthesia/Blood Transfusion Reactions: Motion Sickness, Postoperative Nausea & Vomiting (PONV) Past Psychological History: No Psychological Hx Reported Smoking Status: Never smoker Past Alcohol Use History: Occasional Past Drug Use History: None Reported - Past Family History Sister(s) Family Medical History: Cancer Additional Family Medical History / Comment(s): Sister of aneurysm, 3 nieces w/hx. aneurysm. Medications and Allergies Home Medications Medication Instructions Recorded Confirmed Type Montelukast [Singulair] 10 mg PO HS 09/19/16 07/17/19 History Thera Tears 1 drop BOTH EYES BID 03/13/18 07/17/19 History Brimonidine Tartrate [Alphagan P 1 drops BOTH EYES BID 10/02/18 07/17/19 History 0.2% Ophth Soln] Omeprazole [PriLOSEC] 20 mg PO DAILY 10/02/18 07/17/19 History Apixaban [Eliquis] 5 mg PO BID #60 tab 10/04/18 07/17/19 Rx Levalbuterol Hfa Inhaler [Xopenex 2 inhalation INHALATION QID PRN 11/07/18 07/17/19 History Hfa Inhaler] Metoprolol Succinate [Toprol XL] 100 mg PO DAILY #90 tab.er.24h 02/28/19 07/17/19 Rx Aspirin 81 mg PO DAILY chew 07/18/19 Rx Rosuvastatin Calcium [Crestor] 10 mg PO DAILY #30 tab 07/18/19 Rx Allergies Allergy/AdvReac Type Severity Reaction Status Date / Time alcohol Allergy Anaphylaxis Verified 07/17/19 20:23 chocolate flavor Allergy Anaphylaxis Verified 07/17/19 20:23 corn Allergy Anaphylaxis Verified 07/17/19 20:23 corn syrup Allergy Anaphylaxis Verified 07/17/19 20:23 Iodinated Contrast Media Allergy Dyspnea Verified 07/17/19 20:23 [Iodinated Contrast Media - IV Dye] Penicillins Allergy Dyspnea Verified 07/17/19 20:23 atorvastatin [From Lipitor] AdvReac Severe Anaphylaxis Verified 07/18/19 06:37 clindamycin AdvReac Nausea Verified 07/17/19 20:23 Physical Exam Vitals: Vital Signs Temp Pulse Pulse Resp BP BP Pulse Ox 07/18/19 08:20 90 16 07/18/19 07:20 97.6 F 90 16 142/78 96 07/18/19 04:00 97.8 F 90 17 151/79 95 07/18/19 03:50 75 18 167/97 07/18/19 03:49 97.8 F 90 17 151/79 97 07/18/19 02:00 78 18 164/87 99 07/18/19 00:10 67 18 155/77 07/17/19 23:20 65 18 157/85 07/17/19 21:50 67 13 163/84 07/17/19 21:40 67 18 154/87 07/17/19 21:10 64 17 158/86 07/17/19 21:00 63 20 159/78 07/17/19 20:10 63 19 170/87 07/17/19 19:22 97.8 F 82 18 171/78 98 Intake and Output 07/17/19 07/18/19 07/18/19 22:59 06:59 14:59 Intake Total 1000 442.071 Balance 1000 442.071 Intake: Intake, IV Titration 1000 82.071 Amount Heparin Sod,Pork in 0.45% 82.071 NaCl 25,000 unit In 0.45 % NaCl 1 250ml.bag @ 12 UNITS/KG/HR 10.07 mls/hr IV .Q24H [facility] Rx#: [id number] Sodium Chloride 0.9% 1, 1000 000 ml @ 999 mls/hr IV . Q1H1M [facility] Rx#:[id number] Oral 360 Other: Voiding Method Toilet # Voids 0 Weight 83.915 kg 81.8 kg Results CBC & Chem 7: 07/18/19 06:10 07/17/19 20:11 Labs: Abnormal Lab Results - Last 24 Hours (Table) 07/17/19 07/18/19 07/18/19 Range/Units 20:11 06:10 06:10 APTT 38.6 H (22.0-30.0) sec Alkaline Phosphatase 127 H (38-126) U/L Triglycerides 164 H (<150) mg/dL Cholesterol 253 H (<200) mg/dL LDL Cholesterol, Calc 169 H (0-99) mg/dL Thrombosis Risk Factor Assmnt - Choose All That Apply Any of the Below Risk Factors Present?: Yes Each Factor Represents 1 point: Obesity (BMI >25) Other Risk Factors: Yes Each Risk Factor Represents 2 Points: Age 61-74 years Other congenital or acquired thrombophilia - If yes, enter type in comment: No Thrombosis Risk Factor Assessment Total Risk Factor Score: 3 Thrombosis Risk Factor Assessment Level: Moderate Risk
--- NOTE | 2019-07-20 23:19 | P.DS ---
Providers Date of admission: 07/17/19 22:37 Expected date of discharge: 07/18/19 Attending physician: Gurwinder Caldwell Consults: 07/17/19 22:37 Consult Physician Urgent Consulting Provider: Marko Bailon Consult Reason/Comments: cp Do you want consulting provider notified?: Yes Primary care physician: Tico Boston MD Hospital Course: Chief Complaint: Chest sharp pain History of presenting complaint: This is a pleasant 69-year-old patient of Dr. Locke. Also follows with Dr. Bailon is a lokie engineer and Dr. Mackey as electrophysiology physician. Patient has undergone pulmonary vein isolation and ablation by Dr. Mackey for persistent atrial fibrillation the past. Also had the cardiac catheterization 2010 found to have mild disease. In January of this year she had a negative nuclear stress test. Patient presented with left chest burning sensation for 15-20 seconds. Dressing on and off for several hours. No radiation. My shortness of breath. [place] tired. No dizziness. No fever no chills. Admitted for the same. Currently he was consulted. CT angiogram of the heart was performed in the ER that was negative. Seen by cardiology. Okay to be discharged. 2-D echo unremarkable. EF 55-60%. Started on Crestor by cardiology Consultation: Dr. VC Leong from cardiology Physical examination: VITAL SIGNS: 97.8, 72, 16, 131 Bicitra 6, 94% room air GENERAL: Sitting up, comfortable. EYES: Pupils equal. Conjunctiva normal. HEENT: External appearance of nose and ears normal, oral cavity grossly normal. NECK: JVD not raised; masses not palpable. HEART: First and second heart sounds are normal; no edema. LUNGS: Respiratory rate normal; clear to auscultation. ABDOMEN: Soft, nontender, liver spleen not palpable, no masses palpable. PSYCH: Alert and oriented x3; mood and affect normal. Musculoskeletal: Evidence of OA in the hands INVESTIGATIONS, reviewed in the clinical context: White count 7.2 hemoglobin 14.3 potassium 4.5 creatinine 0.90 Troponin I 3 negative LDL 169 ProBNP to 256 EKG tracing-personally reviewed by me normal sinus rhythm CT of the aorta with runoff-negative Discharge diagnosis: -Left anterior chest wall pain, possibly musculoskeletal -Paroxysmal atrial fibrillation currently in sinus rhythm -Asthma -GERD -Hyperlipidemia -Essential hypertension -Primary osteoarthritis Disposition: Home Patient Condition at Discharge: Stable Plan - Discharge Summary Discharge Rx Participant: No New Discharge Prescriptions: New Aspirin 81 mg PO DAILY chew Rosuvastatin Calcium [Crestor] 10 mg PO DAILY #30 tab Continue Montelukast [Singulair] 10 mg PO HS Thera Tears 1 drop BOTH EYES BID Brimonidine Tartrate [Alphagan P 0.2% Ophth Soln] 1 drops BOTH EYES BID Omeprazole [PriLOSEC] 20 mg PO DAILY Apixaban [Eliquis] 5 mg PO BID #60 tab Levalbuterol Hfa Inhaler [Xopenex Hfa Inhaler] 2 inhalation INHALATION QID PRN PRN Reason: Shortness Of Breath Metoprolol Succinate [Toprol XL] 100 mg PO DAILY #90 tab.er.24h Discontinued Loratadine [Claritin] 10 mg PO DAILY Discharge Medication List Montelukast [Singulair] 10 mg PO HS 09/19/16 [History] Thera Tears 1 drop BOTH EYES BID 03/13/18 [History] Brimonidine Tartrate [Alphagan P 0.2% Ophth Soln] 1 drops BOTH EYES BID 10/02/18 [History] Omeprazole [PriLOSEC] 20 mg PO DAILY 10/02/18 [History] Apixaban [Eliquis] 5 mg PO BID #60 tab 10/04/18 [Rx] Levalbuterol Hfa Inhaler [Xopenex Hfa Inhaler] 2 inhalation INHALATION QID PRN 11/07/18 [History] Metoprolol Succinate [Toprol XL] 100 mg PO DAILY #90 tab.er.24h 02/28/19 [Rx] Aspirin 81 mg PO DAILY chew 07/18/19 [Rx] Rosuvastatin Calcium [Crestor] 10 mg PO DAILY #30 tab 07/18/19 [Rx] Follow up Appointment(s)/Referral(s): Marko Bailon MD [STAFF PHYSICIAN] - 08/01/19 9:30 am ( with SEWING MACHINE REPAIRER HELPER) Tico Boston MD [Primary Care Provider] - 1-2 days (Office is closed. Please call to schedule appointment) Patient Instructions/Handouts: Angina (DC) Discharge Disposition: HOME SELF-CARE
== END 2019-07-18 17:15 | disposition home or self-care (01) ==
LOC: EC 19:18 → 1SOBS 22:37 → 3SCARD 07-18 03:38
PROVIDERS: ADMIT Hospitalist; ATTEND Hospitalist
DX: R07.89 Other chest pain (principal); I48.19 Other persistent atrial fibrillation; J45.909 Unspecified asthma, uncomplicated; K21.9 Gastro-esophageal reflux disease without esophagitis; E78.5 Hyperlipidemia, unspecified; I10 Essential (primary) hypertension; M19.91 Primary osteoarthritis, unspecified site; I08.3 Combined rheumatic disorders of mitral, aortic and tricuspid valves; E78.00 Pure hypercholesterolemia, unspecified; I25.10 Atherosclerotic heart disease of native coronary artery without angina pectoris; M19.90 Unspecified osteoarthritis, unspecified site; H40.9 Unspecified glaucoma; G43.909 Migraine, unspecified, not intractable, without status migrainosus; E11.9 Type 2 diabetes mellitus without complications; Z79.899 Other long term (current) drug therapy; Z79.01 Long term (current) use of anticoagulants; Z79.82 Long term (current) use of aspirin; Z88.1 Allergy status to other antibiotic agents; Z91.041 Radiographic dye allergy status; Z88.0 Allergy status to penicillin; Z88.8 Allergy status to other drugs, medicaments and biological substances; Z91.018 Allergy to other foods; Z87.19 Personal history of other diseases of the digestive system; Z82.49 Family history of ischemic heart disease and other diseases of the circulatory system; Z80.9 Family history of malignant neoplasm, unspecified; E66.9 Obesity, unspecified; Z68.34 Body mass index [BMI] 34.0-34.9, adult
CPT/HCPCS: 96366 ×2; 96376; 96361; 96365; 96375; 99285; 36415; 93005; 83880; 80061; 80053; 82550; 83690; 83735; 84484 ×2; 85025; 85049; 85610; 85730 ×2; 75635; 71275; G0378 ×3; C8929; J1200; J1644 ×2; J2930; Q9950; Q9967; 93306

== ENCOUNTER → 2020-03-19 | Outpatient (CLI) | payer MEDICARE ==
[2020-03-19 18:08] LABS: African American GFR (CKD) 105.5 (60.0-200.0); Albumin 4.3 g/dL (3.80-4.90); Albumin/Globulin Ratio 1.95 (1.60-3.17); Anion Gap 8.6 mmol/L (4.00-12.00); BUN/Creat Ratio 21.67 Ratio (12.00-20.00); Calcium 9.3 mg/dL (8.7-10.3); Carbon Dioxide 23.4 mmol/L (21.6-31.8); Chol/HDL Ratio 4.79; Globulin 2.2 g/dL (1.6-3.3); LDL Cholesterol,Calculated 116.8 mg/dL (0.0-131.0); Non-African American GFR(CKD) 91.1 (60.0-200.0); Potassium 4.5 mmol/L (3.5-5.5); Total Bilirubin 0.9 mg/dL (0.3-1.2); Total Protein 6.5 g/dL (6.2-8.2); VLDL Calculation 42.2 mg/dL (5.00-40.00)
== END | disposition home or self-care (01) ==
LOC: LABWHC1 09:06
PROVIDERS: ATTEND Internal Medicine Interventional Cardiology
DX: E78.2 Mixed hyperlipidemia (principal)
CPT/HCPCS: 36415; 80053; 80061

== ENCOUNTER → 2021-06-09 | Outpatient (CLI) | payer MEDICARE ==
[2021-06-09 12:29] LABS: Chol/HDL Ratio 4.92; LDL Cholesterol,Calculated 98.2 mg/dL (0.0-131.0); VLDL Calculation 50.8 mg/dL (5.00-40.00)
== END | disposition home or self-care (01) ==
LOC: LABWHC1 07:32
PROVIDERS: ATTEND Internal Medicine Interventional Cardiology
DX: E78.2 Mixed hyperlipidemia (principal)
CPT/HCPCS: 36415; 80061; 84450; 84460

== ENCOUNTER → 2022-01-25 | Outpatient (CLI) | payer MEDICARE ==
[2022-01-25 14:41] LABS: ALT 23 U/L (8-44); AST 22 U/L (13-35); African American GFR (CKD) 100.9 (60.0-200.0); Albumin 4.3 g/dL (3.8-4.9); Albumin/Globulin Ratio 1.93 (1.60-3.17); Alkaline Phosphatase 93 U/L (41-126); BUN/Creat Ratio 21.96 Ratio (12.00-20.00); Blood Urea Nitrogen 14.8 mg/dL (9.0-27.0); Calcium 9.4 mg/dL (8.7-10.3); Carbon Dioxide 22.7 mmol/L (20.0-27.5); Chloride 106 mmol/L (96-109); Chol/HDL Ratio 5.11 Ratio; Globulin 2.2 g/dL (1.6-3.3); Glucose 91 mg/dL (70-110); Potassium 4.5 mmol/L (3.5-5.5); Sodium 141 mmol/L (135-145); Total Protein 6.6 g/dL (6.2-8.2)
== END | disposition home or self-care (01) ==
LOC: LABWHC1 08:29
PROVIDERS: ATTEND Internal Medicine Interventional Cardiology
DX: E78.2 Mixed hyperlipidemia (principal)
CPT/HCPCS: 36415; 80053; 80061

== ENCOUNTER → 2022-06-17 | Outpatient (CLI) | payer MEDICARE ==
[2022-06-17 15:21] LABS: ALT 20 U/L (8-44); AST 25 U/L (13-35); Chol/HDL Ratio 5.41 Ratio; LDL Cholesterol,Calculated 101.8 mg/dL (0.0-131.0)
== END | disposition home or self-care (01) ==
LOC: LABWHC1 08:18
PROVIDERS: ATTEND Internal Medicine
DX: E78.2 Mixed hyperlipidemia (principal)
CPT/HCPCS: 36415; 80061; 84450; 84460

== ENCOUNTER → 2023-08-30 | Outpatient (CLI) | payer MEDICARE ==
[2023-08-30 16:38] LABS: ALT 35 U/L (8-44); AST 26 U/L (13-35); Albumin 4.5 g/dL (3.8-4.9); Albumin/Globulin Ratio 2.05 Ratio (1.60-3.17); Alkaline Phosphatase 101 U/L (41-126); BUN/Creat Ratio 22.29 Ratio (12.00-20.00); Blood Urea Nitrogen 15.6 mg/dL (9.0-27.0); Calcium 10.3 mg/dL (8.7-10.3); Carbon Dioxide 21.6 mmol/L (21.6-31.8); Chloride 106 mmol/L (96-109); Chol/HDL Ratio 4.84 Ratio; Globulin 2.2 g/dL (1.6-3.3); Glucose 87 mg/dL (70-110); LDL Cholesterol,Calculated 125.2 mg/dL (0.0-131.0); Potassium 4.6 mmol/L (3.5-5.5); Sodium 142 mmol/L (135-145); Total Bilirubin 0.7 mg/dL (0.3-1.2); Total Protein 6.7 g/dL (6.2-8.2)
== END | disposition home or self-care (01) ==
LOC: LABWHC1 11:05
PROVIDERS: ATTEND Internal Medicine Interventional Cardiology
DX: Z00.00 Encounter for general adult medical examination without abnormal findings (principal); I47.19 Other supraventricular tachycardia; E78.2 Mixed hyperlipidemia
CPT/HCPCS: 36415; 80053; 80061; 84443

== ENCOUNTER 2023-09-04 06:25 | Day surgery (SDC) | payer MEDICARE ==
[2023-09-04] MEDS ORDERED: LACTATED RINGERS 1,000 ML IV ONE (07:40)
[2023-09-04] MEDS ORDERED: BENZOCAINE SPRAY 1 CAN TOPICAL ONE (08:00)
[2023-09-04] MEDS ORDERED: LIDOCAINE 1% INJ 10MG/ML (20 ML MDV) ONE (08:01)
[2023-09-04] MEDS ORDERED: PROPOFOL 10 MG/ML 20 ML VIAL IV ONE (08:01)
--- NOTE | 2023-09-04 08:23 | P.PCN ---
Date of Procedure: 09/04/23 Description of Procedure: Indication: Atrial tachycardia Procedure Description: After explaining the procedure to the patient, it's risk and complications, blood pressure, heart rate and O2 saturation were monitored. The throat was sprayed with Cetacaine. Patient received sedation per anesthesia department. The probe was introduced into the esophagus without difficulty. Images were obtained. Following that, the probe was removed. There was no immediate complication. Findings: Left atrial size is normal. left atrial appendage is normal. Left ventricular systolic function is mildly to moderately impaired with global hypokinesis, ejection fraction 40-45%. Aortic valve the tricuspid valve with mild fibrocalcific changes. Mitral anulus calcification was noted. Tricuspid valve appears to be normal. Descending thoracic aorta revealed mild to moderate atherosclerotic changes. No pericardial effusion was noted. Contrast bubble study revealed no shunting across the intra-atrial septum. There is no pericardial effusion. Doppler: Pulse wave and color Doppler were obtained, and revealed moderate mitral and tricuspid regurgitation with mild to moderate aortic regurgitation. There was no shunting by color Doppler study Conclusion: 1. Normal appearance of the left atrial appendage 2. Mild to moderate left ventricle systolic dysfunction with global hypokinesis 3. Mild to moderate aortic regurgitation 4. Moderate mitral and tricuspid regurgitation 5. And mild to moderate atherosclerotic changes of the descending thoracic aorta Cardioversion: After explaining the procedure to the patient and after obtaining a HEATHER and sedated state a synchronized biphasic cardioversion using 150 J was performed with yazidism of sinus mechanism. There was no immediate complications.
[2023-09-04 08:24] VITALS: TEMP 97.3
[2023-09-04] MEDS ORDERED: SODIUM CHLORIDE 0.9% 1,000 ML IV SCH (08:30)
[2023-09-04 09:32] VITALS: BP 118/78; PULSE 79; RESP 16
[2023-09-04] MEDS ORDERED: MONTELUKAST 10 MG TAB PO SCH (21:00)
[2023-09-04] MEDS ORDERED: APIXABAN 5 MG TAB PO SCH (21:00)
[2023-09-05] MEDS ORDERED: PANTOPRAZOLE 40 MG TABLET PO SCH (07:30)
[2023-09-05] MEDS ORDERED: EZETIMIBE 10 MG TAB PO SCH (09:00)
[2023-09-05] MEDS ORDERED: METOPROLOL SUCCINATE (ER) 100 MG TAB.ER.24H PO SCH (09:00)
== END 2023-09-04 09:45 | disposition home or self-care (01) ==
LOC: OR 06:25
PROVIDERS: ATTEND Internal Medicine Interventional Cardiology
DX: I08.2 Rheumatic disorders of both aortic and tricuspid valves (principal); I47.19 Other supraventricular tachycardia; I10 Essential (primary) hypertension; I48.91 Unspecified atrial fibrillation; E78.5 Hyperlipidemia, unspecified; K21.9 Gastro-esophageal reflux disease without esophagitis; J45.909 Unspecified asthma, uncomplicated; M19.90 Unspecified osteoarthritis, unspecified site; Z95.1 Presence of aortocoronary bypass graft; Z79.51 Long term (current) use of inhaled steroids; Z79.01 Long term (current) use of anticoagulants; Z79.899 Other long term (current) drug therapy
CPT/HCPCS: 93312; 93320; 93325; 92960; 84132; J2001; J2704

== ENCOUNTER → 2023-11-17 | Outpatient (CLI) | payer MEDICARE ==
[2023-11-17 16:35] LABS: ALT 24 U/L (8-44); AST 21 U/L (13-35); Albumin 4.3 g/dL (3.8-4.9); Albumin/Globulin Ratio 1.79 Ratio (1.60-3.17); Alkaline Phosphatase 95 U/L (41-126); BUN/Creat Ratio 26.14 Ratio (12.00-20.00); Blood Urea Nitrogen 18.3 mg/dL (9.0-27.0); Calcium 9.5 mg/dL (8.7-10.3); Carbon Dioxide 22.2 mmol/L (21.6-31.8); Chloride 107 mmol/L (96-109); Chol/HDL Ratio 4.26 Ratio; Globulin 2.4 g/dL (1.6-3.3); Glucose 96 mg/dL (70-110); LDL Cholesterol,Calculated 115.7 mg/dL (0.0-131.0); Potassium 4.3 mmol/L (3.5-5.5); Sodium 141 mmol/L (135-145); Total Bilirubin 0.6 mg/dL (0.3-1.2); Total Protein 6.7 g/dL (6.2-8.2)
== END | disposition home or self-care (01) ==
LOC: LABWHC1 08:17
PROVIDERS: ATTEND Internal Medicine Interventional Cardiology
DX: E78.2 Mixed hyperlipidemia (principal)
CPT/HCPCS: 36415; 80053; 80061

== ENCOUNTER → 2024-02-01 | Outpatient (CLI) | payer MEDICARE ==
[2024-02-01 11:28] LABS: Chol/HDL Ratio 2.89 Ratio; LDL Cholesterol,Calculated 55.5 mg/dL (0.0-131.0)
[2024-02-01 11:32] LABS: ALT 19 U/L (8-44); AST 28 U/L (13-35)
== END | disposition home or self-care (01) ==
LOC: LABWHC1 07:44
PROVIDERS: ATTEND Nurse Practitioner Adult Health
DX: E78.2 Mixed hyperlipidemia (principal)
CPT/HCPCS: 36415; 80061; 84450; 84460

== ENCOUNTER → 2024-04-24 | Outpatient (CLI) | payer MEDICARE ==
[2024-04-24 09:56] LABS: HCT 46.4 % (34.0-46.0); HGB 14.4 gm/dL (11.4-16.0); MCH 29.5 pg (25.0-35.0); MCHC 31.1 g/dL (31.0-37.0); MCV 94.9 fL (80.0-100.0); Mean Platelet Volume 8.8; Platelet Count 196 k/uL (150-450); RBC 4.89 m/uL (3.80-5.40); RDW 13.8 % (11.5-15.5); WBC 5.5 k/uL (3.8-10.6)
[2024-04-24 15:51] LABS: Blood Urea Nitrogen 13.4 mg/dL (9.0-27.0); Chloride 108 mmol/L (96-109); Potassium 4.8 mmol/L (3.5-5.5); Sodium 142 mmol/L (135-145)
== END | disposition home or self-care (01) ==
LOC: LABPAT 08:12
PROVIDERS: ATTEND Internal Medicine Clinical Cardiac Electrophysiology
DX: Z01.812 Encounter for preprocedural laboratory examination (principal); I48.19 Other persistent atrial fibrillation
CPT/HCPCS: 36415; 80051; 82565; 84520; 85027

== ENCOUNTER 2024-05-06 09:27 | Day surgery (SDC) | payer MEDICARE ==
[2024-05-01 16:06] VITALS: BMI 34.9
[2024-05-06] MEDS: SODIUM CHLORIDE 0.9% 1,000 ML IV SCH (09:55)
[2024-05-06] MEDS: IV FLUID CONTINUATION 1,000 ML IV ONE (09:55)
[2024-05-06 10:16] LABS: ALT 33 U/L (4-34); AST 44 U/L (14-36); African American GFR (CKD) >90 (>60 ml/min/1.73 sqM); Albumin 4.5 g/dL (3.5-5.0); Alkaline Phosphatase 97 U/L (38-126); Anion Gap 8 mmol/L; Blood Urea Nitrogen 15 mg/dL (7-17); Calcium 9.5 mg/dL (8.4-10.2); Carbon Dioxide 21 mmol/L (22-30); Chloride 110 mmol/L (98-107); Glucose 96 mg/dL (74-99); Non-African American GFR(CKD) 86 (>60 ml/min/1.73 sqM); Potassium 5.2 mmol/L (3.5-5.1); Sodium 139 mmol/L (137-145); Total Bilirubin 1.1 mg/dL (0.2-1.3); Total Protein 7.3 g/dL (6.3-8.2)
[2024-05-06] MEDS ORDERED: HEPARIN SODIUM,PORCINE 10,000 UNIT/ML 1 ML VIAL ONE (11:35)
[2024-05-06] MEDS ORDERED: PROPOFOL 10 MG/ML 20 ML VIAL IV ONE (11:35)
[2024-05-06] MEDS ORDERED: LIDOCAINE 1% INJ 10MG/ML (20 ML MDV) ONE ×2 (11:35→12:01)
[2024-05-06] MEDS ORDERED: SUCCINYLCHOLINE CHLORIDE 200 MG/10 ML VIAL IV ONE (11:35)
[2024-05-06] MEDS ORDERED: HEPARIN SODIUM,PORCINE 5,000 UNIT/ML 1 ML VIAL ONE (11:35)
[2024-05-06] MEDS ORDERED: fentaNYL (PF) 50 MCG/ML 2 ML AMP ONE (11:35)
[2024-05-06] MEDS ORDERED: PHENYLEPHRINE-0.9% NACL SYG 1,000 MCG/10 ML SYRINGE ONE (11:35)
[2024-05-06] MEDS ORDERED: PHENYLEPHRINE 10 MG/ML VIAL ONE (11:35)
[2024-05-06] MEDS: LIDOCAINE 1% INJ 10MG/ML (20 ML MDV) SQ ONE (12:35)
[2024-05-06] MEDS: HEPARIN SODIUM (1,000 UNIT/ML) 1,000 UNIT in SODIUM CHLORIDE 0.9% 1,000 ML IRRIGATION ONE (12:40)
[2024-05-06] MEDS: HEPARIN SOD,PORK IN 0.45% NACL 25,000 UNIT in 0.45% NACL 1 250ML.BAG IV ONE (12:41)
[2024-05-06] MEDS: HEPARIN SODIUM,PORCINE 10,000 UNIT in SODIUM CHLORIDE 0.9% 1,000 ML IRRIGATION ONE (13:26)
[2024-05-06] MEDS ORDERED: ACETAMINOPHEN TAB 325 MG TAB PO PRN (15:39)
--- NOTE | 2024-05-06 15:50 | P.HPCAR ---
History of Present Illness This is Dr. Mackey dictating an H/P on this patient The patient was interviewed and examined IMPRESSION / ASSESSMENT: Persistent atrial tachycardia with RVR Upright F waves in V1 and upright F waves in inferior leads, isoelectric in lead I Failed amiodarone and electrical cardioversion in the past History of persistent atrial fibrillation associated with cardiomyopathy Obstructive sleep apnea Past history of cryoablation of all 4 pulmonary veins Minimal CAD Moderate aortic regurgitation PLAN: EP study mapping and ablation of the arrhythmia Continue Eliquis Patient has stopped amiodarone 6 weeks prior HPI Patient continues to remain in an atrial tachycardia with RVR Denies any chest discomfort syncope or orthopnea PND Denies any fever chills cough expectoration ROS: No fever chills or rigors, no cough, phlegm or expectoration, no nausea, vomiting or diarrhea, no hematuria, dysuria, no musculoskeletal complaints, no strokes or seizures, no skin lesions. EXAMINATION: Blood pressure 139/84 130/63 mmHg afebrile pulse rate 120 beats minute at rest respirations 16 Heart sounds tachycardic no murmurs Breath sounds are clear no rhonchi no crackles No JVD No lower extremity edema Soft abdomen Central obesity REVIEW OF LABS, ECG & MEDICAL DATA Sodium 139, potassium 5.2 BUN 15 and creatinine 0.7 TSH normal at 2.6 Physical Exam Vitals: Vital Signs Temp Pulse Pulse Resp BP BP Pulse Ox 05/06/24 15:45 67 15 127/65 99 05/06/24 15:31 97.6 F 66 16 130/63 99 05/06/24 10:37 97.8 F 120 H 16 118/84 139/84 95 Intake and Output 05/06/24 05/06/24 05/06/24 06:59 14:59 22:59 Intake Total 721 0 Balance 721 0 Intake: IV 721 0 Other: Weight 84.8 kg Past Medical History Past Medical History: Atrial Fibrillation, Asthma, Eye Disorder, GERD/Reflux, Hyperlipidemia, Hypertension, Neurologic Disorder, Osteoarthritis (OA) Additional Past Medical History / Comment(s): See Dr Mackey's H&P,migraines, hx ulcer, hx diverticulitis, hx [place], Hx rheumatic fever, being tr eated for glaucoma lbil eyes-left only needs to be tx History of Any Multi-Drug Resistant Organisms: None Reported Past Surgical History: Adenoidectomy, Breast Surgery, Ear Surgery, Joint Replacement, Orthopedic Surgery, Tonsillectomy Additional Past Surgical History / Comment(s): left ear drum surgery, hu breast reduction, left knee arthroscopy, colonoscopy, LT TKA, BILAT CATARACT SURGERY, GLAUCOMA SX, laser surgery on eye, cardioversion 10/02/2018 Past Anesthesia/Blood Transfusion Reactions: Motion Sickness, Postoperative Nausea & Vomiting (PONV) Additional Past Anesthesia/Blood Transfusion Reaction / Comment(s): no hx blood transfusion Smoking Status: Never smoker - Past Family History Sister(s) Family Medical History: Cancer Additional Family Medical History / Comment(s): Sister of aneurysm, 3 nieces w/hx. aneurysm. Physical Examination Vital Signs Temp Pulse Pulse Resp BP BP Pulse Ox 05/06/24 15:45 67 15 127/65 99 05/06/24 15:31 97.6 F 66 16 130/63 99 05/06/24 10:37 97.8 F 120 H 16 118/84 139/84 95 Intake and Output 05/06/24 05/06/24 05/06/24 06:59 14:59 22:59 Intake Total 721 0 Balance 721 0 Intake: IV 721 0 Other: Weight 84.8 kg Results 05/06/24 09:55 Cardiac Enzymes 05/06/24 Range/Units 09:55 AST 44 H (14-36) U/L Comprehensive Metabolic Panel 05/06/24 Range/Units 09:55 Sodium 139 (137-145) mmol/L Potassium 5.2 H (3.5-5.1) mmol/L Chloride 110 H (98-107) mmol/L Carbon Dioxide 21 L (22-30) mmol/L BUN 15 (7-17) mg/dL Creatinine 0.66 (0.52-1.04) mg/dL Glucose 96 (74-99) mg/dL Calcium 9.5 (8.4-10.2) mg/dL AST 44 H (14-36) U/L ALT 33 (4-34) U/L Alkaline Phosphatase 97 (38-126) U/L Total Protein 7.3 (6.3-8.2) g/dL Albumin 4.5 (3.5-5.0) g/dL Current Medications Generic Name Dose Route Start Last Admin Trade Name Freq PRN Reason Stop Dose Admin Acetaminophen 650 mg 05/06/24 15:39 Acetaminophen Tab 325 Mg Tab PO 06/05/24 15:38 Q6HR PRN Mild Pain (Scale 1 to 3) Apixaban 5 mg 05/06/24 21:00 Apixaban 5 Mg Tab PO 06/05/24 20:59 BID [facility] Protocol Budesonide/Formoterol Fumarate 2 puff 05/06/24 20:00 Symbicort 160-4.5 Mcg Inhaler INHALATION 06/05/24 19:59 RT-BID [facility] Ezetimibe 10 mg 05/07/24 09:00 Ezetimibe 10 Mg Tab PO 06/06/24 08:59 DAILY [facility] Sodium Chloride 1,000 mls @ 20 mls/hr 05/06/24 05:52 05/06/24 09:55 Saline 0.9% IV 06/05/24 05:51 20 mls/hr .Q24H [facility] Administration Lactated Ringer's 1,000 mls @ 20 mls/hr 05/06/24 05:52 Lactated Ringers IV 06/05/24 05:51 .Q24H [facility] Acetaminophen 1,000 mg/ IV 100 mls @ 400 mls/hr 05/06/24 15:39 Solution IVPB 05/06/24 15:53 ONCE ONE Latanoprost 1 drops 05/06/24 21:00 Latanoprost 0.005% Ophth Drops 2.5 Ml Btl LEFT EYE 06/05/24 20:59 HS [facility] Lisinopril 2.5 mg 05/07/24 09:00 Lisinopril 2.5 Mg Tab PO 06/06/24 08:59 DAILY [facility] Metoprolol Succinate 50 mg 05/06/24 21:00 Metoprolol Succinate (Er) 50 Mg Tab.Er.24h PO 06/05/24 20:59 HS [facility] Montelukast Sodium 10 mg 05/06/24 21:00 Montelukast 10 Mg Tab PO 06/05/24 20:59 HS [facility] Non-Formulary Medication 1 drop 05/06/24 21:00 Dorzolamide Hcl/Pf [Dorzolamide 2% Eye Drop] LEFT EYE 06/05/24 20:59 BID [facility] Sodium Chloride 12 ml 05/06/24 15:39 Sodium Chloride 0.9% Flush 10 Ml Syringe IV 06/05/24 15:38 Q12HR PRN Line Flush Intake and Output 05/06/24 05/06/24 05/06/24 06:59 14:59 22:59 Intake Total 721 0 Balance 721 0 Intake: IV 721 0 Other: Weight 84.8 kg Patient Weight 05/07/24 06:59 Weight 84.8 kg 05/06/24 09:55
--- NOTE | 2024-05-06 15:56 | P.EPPROC ---
- EP Procedure Note Electrophysiology Procedure Note: Diagnosis Atrial tachycardia with RVR, refractory to therapy Status post prior PVI Final diagnosis Successful ablation of roof reentrant tachycardia in the left atrium, with complete block Left atrial septal ablation, with quiescence in the posterior septum Typical atrial flutter ablation, cavotricuspid isthmus with bidirectional block Mildly prolonged corrected sinus node recovery times Details Patient was brought to the EP lab in a fasting state. Written informed consent was obtained prior to the procedure. General anesthesia provided. IV heparin started. Access obtained in the right and left femoral veins. Venous sheaths placed. Intracardiac echo catheter revealed absence of left atrial appendage thrombus, mildly thickened pericardium no effusion Coronary sinus catheter placed. Later His bundle catheter and right radial catheter placed Long sheath, deflectable placed in the right atrium Fossa ovalis identified and left and right transseptal catheterization performed RA pressure 15/9/12 mmHg and LA pressure 16/10/13 mmHg Scar mapping and activation mapping of the left atrium performed Reentrant tachycardia involving the left atrial roof noted RF ablation along the anterior roof performed. Successful termination of the arrhythmia Following that the line was interrogated with pacing maneuvers and a complete line of block was documented. Noncapture at high output was confirmed. Subsequently ablation of the left atrial septum was performed, posterior to the transseptal access site. Complete quiescence of the septum posterior to this line was confirmed. Exit block was confirmed Thereafter left atrial catheter was removed heparin was stopped the catheter was placed in the right atrium Mapping of the cavotricuspid isthmus was performed RF ablation was performed in the cavotricuspid isthmus. This was shaped like a gentle pouch A complete anatomic line of block was made Following that bidirectional block was proven with differential pacing In sinus rhythm AH interval 88 ms, HV interval 37 ms Sinus cycle length 117 0 ms, UT interval 165 ms, QRS 95 ms and absolute QT interval 480 ms AV node Wenckebach block 360 ms Sinus node recovery times were 1391, 1556 and 1396 ms. Mildly prolonged corrected sinus node recovery times All catheters removed and hemostasis was achieved with closure devices. Patient was successfully extubated and transferred to recovery Plan Continue Eliquis Reduce metoprolol to 50 mg p.o. daily, long-acting transfer to
[2024-05-06] MEDS: LACTATED RINGERS 1,000 ML IV SCH (16:58)
[2024-05-06] MEDS: ACETAMINOPHEN IV (For NPO) 1,000 MG in EMPTY BAG 1 BAG IVPB ONE (18:02)
[2024-05-06] MEDS: SYMBICORT 160-4.5 MCG INHALER INHALATION SCH (20:01)
[2024-05-06] MEDS: DORZOLAMIDE HCL 2% DROPS 10 ML BTL LEFT EYE SCH (22:10)
[2024-05-06] MEDS: LATANOPROST 0.005% OPHTH DROPS 2.5 ML BTL LEFT EYE SCH (22:10)
[2024-05-06] MEDS: APIXABAN 5 MG TAB PO SCH (22:12)
[2024-05-06] MEDS: METOPROLOL SUCCINATE (ER) 50 MG TAB.ER.24H PO SCH (22:12)
[2024-05-06] MEDS: MONTELUKAST 10 MG TAB PO SCH (22:12)
[2024-05-07 07:33] VITALS: BP 147/77; PULSE 65; RESP 17; TEMP 97.9
[2024-05-07] MEDS: EZETIMIBE 10 MG TAB PO SCH (08:57)
--- NOTE | 2024-05-07 12:42 | P.DS ---
Providers Attending physician: Rojas Mackey Primary care physician: Analia Bardales MD Hospital Course: Patient is doing well. No chest discomfort dizziness or lightheadedness Groin is healed well Pulse rate in the 60s afebrile Blood pressure 117/74 mmHg Heart sounds are normal and regular Breath sounds are clear Impression persistent atrial fibrillation status post PVI in the past Successful ablation for the following atrial tachycardias Roof reentry, left atrium, successful termination Left atrial septal ablation Atrial flutter ablation, cavotricuspid isthmus, successful Plan Continue anticoagulation Reduce metoprolol succinate to 50 mg p.o. daily I had stopped amiodarone in the month of February No more amiodarone Follow-up with Dr. Bailon in a week Plan - Discharge Summary Discharge Rx Participant: Yes New Discharge Prescriptions: Discontinued Amiodarone [Cordarone] 400 mg PO DAILY #60 tab Metoprolol Succinate [Toprol XL] 100 mg PO DAILY #0 No Action Montelukast [Singulair] 10 mg PO HS Omeprazole [PriLOSEC] 20 mg PO DAILY Levalbuterol Hfa Inhaler [Xopenex Hfa Inhaler] 2 puff INHALATION RT-QID PRN PRN Reason: Shortness Of Breath Budesonide-Formot 160-4.5 Mcg [Symbicort 160-4.5 Mcg Inhaler] 2 puff INHALATION RT-BID Ezetimibe [Zetia] 10 mg PO DAILY Apixaban [Eliquis] 5 mg PO BID lisinopriL 2.5 mg PO DAILY Latanoprost [Latanoprost 0.005%] 1 drop LEFT EYE HS diphenhydrAMINE [Benadryl] 25 mg PO DAILY PRN PRN Reason: Allergy Symptoms Acetaminophen Tab [Tylenol] 500 mg PO Q6H PRN PRN Reason: Pain Or Fever > 100.5 Carboxymethylcellulose Sodium [Thera Tears] 1 drop BOTH EYES QID PRN PRN Reason: dry eyes Metoprolol Succinate (ER) [Toprol Xl] 50 mg PO HS Dorzolamide HCl/Pf [Dorzolamide 2% Eye Drop] 1 drop LEFT EYE BID Turmeric Root Extract [Turmeric] 500 mg PO DAILY Multivitamins, Thera [Multivitamin (formulary)] 1 tab PO HS Discharge Medication List Montelukast [Singulair] 10 mg PO HS 09/19/16 [History] Omeprazole [PriLOSEC] 20 mg PO DAILY 10/02/18 [History] Levalbuterol Hfa Inhaler [Xopenex Hfa Inhaler] 2 puff INHALATION RT-QID PRN 11/07/18 [History] Apixaban [Eliquis] 5 mg PO BID 09/04/23 [History] Budesonide-Formot 160-4.5 Mcg [Symbicort 160-4.5 Mcg Inhaler] 2 puff INHALATION RT-BID 09/04/23 [History] Dorzolamide HCl/Pf [Dorzolamide 2% Eye Drop] 1 drop LEFT EYE BID 09/04/23 [History] Ezetimibe [Zetia] 10 mg PO DAILY 09/04/23 [History] Latanoprost [Latanoprost 0.005%] 1 drop LEFT EYE HS 09/04/23 [History] lisinopriL 2.5 mg PO DAILY 09/04/23 [History] Acetaminophen Tab [Tylenol] 500 mg PO Q6H PRN 03/09/24 [History] Carboxymethylcellulose Sodium [Thera Tears] 1 drop BOTH EYES QID PRN 03/09/24 [History] Multivitamins, Thera [Multivitamin (formulary)] 1 tab PO HS 03/09/24 [History] Turmeric Root Extract [Turmeric] 500 mg PO DAILY 03/09/24 [History] diphenhydrAMINE [Benadryl] 25 mg PO DAILY PRN 03/09/24 [History] Metoprolol Succinate (ER) [Toprol Xl] 50 mg PO HS 05/06/24 [History] Follow up Appointment(s)/Referral(s): Marko Bailon MD [STAFF PHYSICIAN] - 1 Week Activity/Diet/Wound Care/Special Instructions: Post EP study - Ablation instructions 1. Keep access sites dry for 2 days. 2. No heavy lifting or straining for 2 days. 3. Avoid bending the hips repeatedly for 2 days. 4. You may go up and down stairs slowly Call if the following is noted 1. Bleeding, increasing swelling or pain at the access sites. 2. Increasing chest discomfort, especially upon taking a deep breath. 3. Increasing shortness of breath, at rest or with exertion. 4. Undue cough / phlegm 5. Difficulty or pain while swallowing. 6. Pain or change in color in the extremities. 7. Fever, chills, rigors. 8. Increasing headache or neurologic symptoms. 9. Dizziness, fainting, palpitations Reduce metoprolol succinate to 50 mg p.o. daily Continue Eliquis/anticoagulation uninterrupted No amiodarone. Amiodarone was discontinued in February 2024 Discharge Disposition: HOME SELF-CARE
== END 2024-05-07 13:12 | disposition home or self-care (01) ==
LOC: CATHEP 09:27 → 6NMEDSUR 15:06 → CATHEP 05-07 13:12
PROVIDERS: ATTEND Internal Medicine Clinical Cardiac Electrophysiology
DX: I47.19 Other supraventricular tachycardia (principal); I48.19 Other persistent atrial fibrillation; I44.1 Atrioventricular block, second degree; I42.9 Cardiomyopathy, unspecified; I35.1 Nonrheumatic aortic (valve) insufficiency; I25.10 Atherosclerotic heart disease of native coronary artery without angina pectoris; I10 Essential (primary) hypertension; I48.3 Typical atrial flutter; G47.33 Obstructive sleep apnea (adult) (pediatric); K21.9 Gastro-esophageal reflux disease without esophagitis; J45.909 Unspecified asthma, uncomplicated; E78.5 Hyperlipidemia, unspecified; M19.90 Unspecified osteoarthritis, unspecified site; Z79.01 Long term (current) use of anticoagulants; Z79.51 Long term (current) use of inhaled steroids; Z79.899 Other long term (current) drug therapy; Z90.89 Acquired absence of other organs; Z96.653 Presence of artificial knee joint, bilateral
CPT/HCPCS: 93462; 93662; 93653; 93655; 86900; 86901; 80053; 84443; 86850; C1759; C1769 ×4; C1894; C1760 ×2; C1766; C1730; C1731; C1732; J1644 ×3; J2001; J0131

== ENCOUNTER → 2024-07-22 | Outpatient (CLI) | payer MEDICARE ==
[2024-07-22 15:23] LABS: ALT 22 U/L (8-44); AST 26 U/L (13-35); Chol/HDL Ratio 4.66 Ratio; LDL Cholesterol,Calculated 111.2 mg/dL (0.0-131.0)
== END | disposition home or self-care (01) ==
LOC: LABWHC1 09:33
PROVIDERS: ATTEND Internal Medicine Interventional Cardiology
DX: E78.2 Mixed hyperlipidemia (principal)
CPT/HCPCS: 36415; 80061; 84450; 84460

== ENCOUNTER 2025-01-09 15:00 | Emergency (ER) | payer MEDICARE ==
--- NOTE | 2025-01-09 15:36 | ED ---
General Adult HPI - General Chief complaint: Chest Pain Stated complaint: chest pain SOB high blood pressure Time Seen by Provider: 01/09/25 15:23 Source: patient Mode of arrival: ambulatory Limitations: no limitations - History of Present Illness Initial comments: Meghan is a pleasant 74-year-old female with history of asthma who was brought to the ER today by her family after complaining about chest pain. Patient reports that for the past few days she has had some nasal congestion and felt like her asthma is acting up however she can only use her rescue inhaler she no longer does her nebulizer treatments because of her A-fib. Patient states that around 1130 today she started feeling like her chest was really tight and it did not seem to improve is much as usual with her albuterol inhaler her family became concerned and brought her to the ER. Patient states she used her inhaler she took about a 15-minute nap and she was feeling a lot better but still tight in the chest. No diaphoresis or lightheadedness. No recent illness fevers chills or productive cough. - Related Data Home Medications Medication Instructions Recorded Confirmed Omeprazole [PriLOSEC] 20 mg PO DAILY 10/02/18 01/09/25 Levalbuterol Hfa Inhaler [Xopenex 2 puff INHALATION RT-Q6H PRN 11/07/18 01/09/25 Hfa Inhaler] Apixaban [Eliquis] 5 mg PO BID 09/04/23 01/09/25 Ezetimibe [Zetia] 10 mg PO DAILY 09/04/23 01/09/25 Latanoprost [Latanoprost 0.005%] 1 drop LEFT EYE HS 09/04/23 01/09/25 Dorzolamide 2% [Trusopt 2%] 1 drop LEFT EYE BID 01/09/25 01/09/25 Fluticasone Propion/Salmeterol 2 puff INHALATION RT-BID 01/09/25 01/09/25 [Advair Hfa 230-21 Mcg Inhaler] Loratadine [Claritin] 10 mg PO DAILY 01/09/25 01/09/25 Metoprolol Tartrate [Lopressor] 50 mg PO BID 01/09/25 01/09/25 Montelukast [Singulair] 10 mg PO HS 01/09/25 01/09/25 Allergies Allergy/AdvReac Type Severity Reaction Status Date / Time atorvastatin [From Lipitor] Allergy Severe Anaphylaxis Verified 01/09/25 15:36 alcohol Allergy Anaphylaxis Verified 01/09/25 15:36 chocolate flavor Allergy Anaphylaxis Verified 01/09/25 15:36 corn Allergy Anaphylaxis Verified 01/09/25 15:36 corn syrup Allergy Anaphylaxis Verified 01/09/25 15:36 Iodinated Contrast Media Allergy Dyspnea Verified 01/09/25 15:36 [Iodinated Contrast Media - IV Dye] Penicillins Allergy Dyspnea, Verified 01/09/25 15:36 Anaphylaxis, hives clindamycin AdvReac Nausea Verified 01/09/25 15:36 rosuvastatin [From Crestor] AdvReac Nerve Verified 01/09/25 15:36 pain/tingling, numbness Review of Systems ROS Statement: Those systems with pertinent positive or pertinent negative responses have been documented in the HPI. ROS Other: All systems not noted in ROS Statement are negative. Past Medical History Past Medical History: Atrial Fibrillation, Asthma, Eye Disorder, GERD/Reflux, Hyperlipidemia, Hypertension, Osteoarthritis (OA) Additional Past Medical History / Comment(s): See Dr Mackey's H&P, hx ulcer, hx diverticulitis, hx [place] [employer], Hx rheumatic fever, being treated for glaucoma lbil eyes-left only needs to be tx History of Any Multi-Drug Resistant Organisms: None Reported Past Surgical History: Adenoidectomy, Bowel Resection, Breast Surgery, Ear Surgery, Joint Replacement, Orthopedic Surgery, Tonsillectomy Additional Past Surgical History / Comment(s): left ear drum surgery, hu breast reduction, left knee arthroscopy, colonoscopy, LT TKA, BILAT CATARACT SURGERY, GLAUCOMA SX, laser surgery on eye, cardioversion 10/02/2018 Past Anesthesia/Blood Transfusion Reactions: Motion Sickness, Postoperative Nausea & Vomiting (PONV) Past Psychological History: No Psychological Hx Reported Past Alcohol Use History: Occasional - Past Family History Sister(s) Family Medical History: Cancer Additional Family Medical History / Comment(s): Sister of aneurysm, 3 nieces w/hx. aneurysm. General Exam - General Exam Comments Initial Comments: Physical Exam GENERAL: Patient is well-developed and well-nourished. Patient is nontoxic and well- hydrated and is in no distress. HENT: Normocephalic, Atraumatic. EYES: PERRL, EOMI PULMONARY: Unlabored respirations. No audible rales rhonchi or wheezing was noted. CARDIOVASCULAR: There is a regular rate and rhythm without any murmurs gallops or rubs. ABDOMEN: Soft and nontender with normal bowel sounds. SKIN: Skin is clear with no lesions or rashes and otherwise unremarkable. : Deferred NEUROLOGIC: Patient is alert and oriented x3. Moving all extremities spontaneously MUSCULOSKELETAL: Normal extremities with adequate strength and full range of motion. No lower extremity swelling or edema. No calf tenderness. PSYCHIATRIC: Normal psychiatric evaluation. Limitations: no limitations Course Vital Signs 01/09/25 01/09/25 01/09/25 15:04 15:23 17:57 Temperature 97.8 F 98.1 F Pulse Rate 66 65 60 Respiratory 17 20 18 Rate Blood Pressure 174/79 170/94 149/74 O2 Sat by Pulse 99 98 98 Oximetry 01/09/25 01/09/25 18:27 19:45 Temperature 98 F 97.8 F Pulse Rate 63 64 Respiratory 18 18 Rate Blood Pressure 148/78 152/80 O2 Sat by Pulse 97 97 Oximetry EKG Findings - EKG Comments: EKG Findings:: Interpreted by me, EKG obtained due to complaint of chest pain, G obtained at 1512 rate is 67 rhythm is sinus there is a normal axis, normal intervals, MS 172 QRS 86 QTc 406 there are no acute ST elevations or depressions no evidence of acute ischemia infarction or pathologic arrhythmia. Medical Decision Making - Medical Decision Making Was pt. sent in by a medical professional or institution (, PA, LUMBER BEARER, urgent care, hospital, or snf...) When possible be specific @ -No Did you speak to anyone other than the patient for history (EMS, parent, family, police, friend...)? What history was obtained from this source @ -Patient's daughter at bedside Did you review nursing and triage notes (agree or disagree)? Why? @ -I reviewed and agree with nursing and triage notes Were old charts reviewed (outside hosp., previous admission, EMS record, old EKG, old radiological studies, urgent care reports/EKG's, snf records)? Report findings @ -Previous hospitalization was reviewed Differential Diagnosis (chest pain, altered mental status, abdominal pain women, abdominal pain men, vaginal bleeding, weakness, fever, dyspnea, syncope, headache, dizziness, GI bleed, back pain, seizure, CVA, palpatations, mental health)? @ -Differential Chest Pain: Stable Angina, Unstable Angina, STEMI, NSTEMI Aortic Dissection, Pneumothorax, Musculoskeletal, Esophageal Spasm GERD, Cholecystitis, Pancreatitis, Zoster, this is not meant to be an all-inclusive list. EKG interpreted by me (3pts min.). @ -As above X-rays interpreted by me (1pt min.). @ -No focal consolidation, no pneumothorax, no acute findings CT interpreted by me (1pt min.). @ -None done U/S interpreted by me (1pt. min.). @ -None done What testing was considered but not performed or refused? (CT, X-rays, U/S, labs)? Why? @ -None What meds were considered but not given or refused? Why? @ -None Did you discuss the management of the patient with other professionals (professionals i.e. , PA, LUMBER [employer]ARER, lab, RT, psych nurse, social work program coordinator, drier and grinder tender, teacher, chief contract officer, hospice case manager)? Give summary @ -No Was smoking cessation discussed for >3mins.? @ -No Was critical care preformed (if so, how long)? @ -No Were there social determinants of health that impacted care today? How? (Homelessness, low income, unemployed, alcoholism, drug addiction, transportation, low edu. Level, literacy, decrease access to med. care, senior living, rehab)? @ -No Was there de-escalation of care discussed even if they declined (Discuss DNR or withdrawal of care, Hospice)? DNR status @ -No What co-morbidities impacted this encounter? (DM, HTN, Smoking, COPD, CAD, Cancer, CVA, ARF, Chemo, Hep., AIDS, mental health diagnosis, sleep apnea, morbid obesity)? @ -COPD Was patient admitted / discharged? Hospital course, mention meds given and route, prescriptions, significant lab abnormalities, going to OR and other pertinent info. @ -Pt was seen, history obtained from patient and family Patient was asymptomatic upon arrival her EKG was nonischemic her chest x-ray was unremarkable. Patient remained asymptomatic throughout her stay in the ER she had 2 negative troponins and was comfortable to plan for discharge home and outpatient follow-up. Physical exam unremarkable - patient asymptomatic Labs un Undiagnosed new problem with uncertain prognosis? @ -No Drug Therapy requiring intensive monitoring for toxicity (Heparin, Nitro, Insulin, Cardizem)? @ -No Were any procedures done? @ -No Diagnosis/symptom? @ -Atypical chest pain, bronchitis Acute, or Chronic, or Acute on Chronic? @ -Acute Uncomplicated (without systemic symptoms) or Complicated (systemic symptoms)? @ -Uncomplicated Side effects of treatment? @ -No Exacerbation, Progression, or Severe Exacerbation? @ -No Poses a threat to life or bodily function? How? (Chest pain, [place], SD, pneumonia, PE, COPD, DKA, ARF, appy, cholecystitis, CVA, Diverticulitis, Homicidal, Suicidal, threat to staff... and all critical care pts) @ -No - Lab Data Result diagrams: 01/09/25 16:02 01/09/25 16:02 Lab Results 01/09/25 01/09/25 01/09/25 Range/Units 16:02 16:02 16:02 WBC 7.4 (3.8-10.6) k/uL RBC 4.57 (3.80-5.40) m/uL Hgb 14.0 (11.4-16.0) gm/dL Hct 42.4 (34.0-46.0) % MCV 92.8 (80.0-100.0) fL MCH 30.6 (25.0-35.0) pg MCHC 33.0 (31.0-37.0) g/dL RDW 13.4 (11.5-15.5) % Plt Count 181 (150-450) k/uL MPV 7.8 Neutrophils % 66 % Lymphocytes % 24 % Monocytes % 5 % Eosinophils % 3 % Basophils % 0 % Neutrophils # 4.9 (1.3-7.7) k/uL Lymphocytes # 1.8 (1.0-4.8) k/uL Monocytes # 0.4 (0-1.0) k/uL Eosinophils # 0.2 (0-0.7) k/uL Basophils # 0.0 (0-0.2) k/uL PT 10.7 (10.0-12.5) sec INR 1.0 (<1.2) APTT 22.8 (22.0-30.0) sec Sodium 141 (137-145) mmol/L Potassium 4.2 (3.5-5.1) mmol/L Chloride 108 H (98-107) mmol/L Carbon Dioxide 22 (22-30) mmol/L Anion Gap 11 mmol/L BUN 17 (7-17) mg/dL Creatinine 0.63 (0.52-1.04) mg/dL Est GFR (CKD-EPI)AfAm >90 (>60 ml/min/1.73 sqM) Est GFR (CKD-EPI)NonAf 87 (>60 ml/min/1.73 sqM) Glucose 85 (74-99) mg/dL Calcium 9.2 (8.4-10.2) mg/dL Magnesium 2.2 (1.6-2.3) mg/dL Total Bilirubin 0.6 (0.2-1.3) mg/dL AST 30 (14-36) U/L ALT 29 (4-34) U/L Alkaline Phosphatase 113 (38-126) U/L Troponin I (0.000-0.034) ng/mL NT-Pro-B Natriuret Pep 433 pg/mL Total Protein 7.1 (6.3-8.2) g/dL Albumin 4.4 (3.5-5.0) g/dL 01/09/25 01/09/25 Range/Units 16:02 18:29 WBC (3.8-10.6) k/uL RBC (3.80-5.40) m/uL Hgb (11.4-16.0) gm/dL Hct (34.0-46.0) % MCV (80.0-100.0) fL MCH (25.0-35.0) pg MCHC (31.0-37.0) g/dL RDW (11.5-15.5) % Plt Count (150-450) k/uL MPV Neutrophils % % Lymphocytes % % Monocytes % % Eosinophils % % Basophils % % Neutrophils # (1.3-7.7) k/uL Lymphocytes # (1.0-4.8) k/uL Monocytes # (0-1.0) k/uL Eosinophils # (0-0.7) k/uL Basophils # (0-0.2) k/uL PT (10.0-12.5) sec INR (<1.2) APTT (22.0-30.0) sec Sodium (137-145) mmol/L Potassium (3.5-5.1) mmol/L Chloride (98-107) mmol/L Carbon Dioxide (22-30) mmol/L Anion Gap mmol/L BUN (7-17) mg/dL Creatinine (0.52-1.04) mg/dL Est GFR (CKD-EPI)AfAm (>60 ml/min/1.73 sqM) Est GFR (CKD-EPI)NonAf (>60 ml/min/1.73 sqM) Glucose (74-99) mg/dL Calcium (8.4-10.2) mg/dL Magnesium (1.6-2.3) mg/dL Total Bilirubin (0.2-1.3) mg/dL AST (14-36) U/L ALT (4-34) U/L Alkaline Phosphatase (38-126) U/L Troponin I <0.012 <0.012 (0.000-0.034) ng/mL NT-Pro-B Natriuret Pep pg/mL Total Protein (6.3-8.2) g/dL Albumin (3.5-5.0) g/dL Disposition Clinical Impression: Atypical chest pain Disposition: HOME SELF-CARE Condition: Stable Instructions (If sedation given, give patient instructions): Chest Pain (ED) Is patient prescribed a controlled substance at d/c from ED?: No Referrals: Analia Bardales MD [Primary Care Provider] - 1-2 days
[2025-01-09 16:15] LABS: WBC 7.4 k/uL (3.8-10.6)
[2025-01-09 16:16] LABS: Basophils % (A) 0 %; Eosinophils # (A) 0.2 k/uL (0-0.7); Eosinophils % (A) 3 %; HCT 42.4 % (34.0-46.0); Lymphocytes # (A) 1.8 k/uL (1.0-4.8); Lymphocytes % (A) 24 %; MCH 30.6 pg (25.0-35.0); MCV 92.8 fL (80.0-100.0); Mean Platelet Volume 7.8; Monocytes # (A) 0.4 k/uL (0-1.0); Monocytes % (A) 5 %; Neutrophils # (A) 4.9 k/uL (1.3-7.7); Neutrophils % (A) 66 %; Platelet Count 181 k/uL (150-450); RBC 4.57 m/uL (3.80-5.40); RDW 13.4 % (11.5-15.5)
[2025-01-09 16:24] LABS: Partial Thromboplastin Time 22.8 sec (22.0-30.0); Prothrombin Time 10.7 sec (10.0-12.5)
[2025-01-09 16:26] LABS: ALT 29 U/L (4-34); AST 30 U/L (14-36); African American GFR (CKD) >90 (>60 ml/min/1.73 sqM); Albumin 4.4 g/dL (3.5-5.0); Alkaline Phosphatase 113 U/L (38-126); Anion Gap 11 mmol/L; Blood Urea Nitrogen 17 mg/dL (7-17); Calcium 9.2 mg/dL (8.4-10.2); Carbon Dioxide 22 mmol/L (22-30); Chloride 108 mmol/L (98-107); Glucose 85 mg/dL (74-99); Magnesium 2.2 mg/dL (1.6-2.3); Non-African American GFR(CKD) 87 (>60 ml/min/1.73 sqM); Potassium 4.2 mmol/L (3.5-5.1); Sodium 141 mmol/L (137-145); Total Bilirubin 0.6 mg/dL (0.2-1.3); Total Protein 7.1 g/dL (6.3-8.2)
[2025-01-09 16:34] LABS: NT-Pro-B-Type Natriuretic Pept 433 pg/mL
--- NOTE | 2025-01-09 16:34 | XR ---
EXAMINATION TYPE: XR chest 2V DATE OF EXAM: 01/09/2025 CLINICAL INDICATION: Female, 74 years old with history of Chest Pain, TECHNIQUE: Frontal and lateral views of the chest are obtained. COMPARISON: Chest x-ray March 09, 2024 FINDINGS: There is no focal air space opacity, pleural effusion, or pneumothorax seen. Mild cardiome everette is redemonstrated. The osseous structures are intact. IMPRESSION: Mild cardiomegaly without acute pulmonary process. [facility], , 01/09/2025 4:32 PM
[2025-01-09 17:58] VITALS: RESP 18
[2025-01-09] MEDS: ASPIRIN 81 MG PO STA (17:58)
[2025-01-09 19:46] VITALS: BP 152/80; PULSE 64; TEMP 97.8
== END 2025-01-09 19:45 | disposition home or self-care (01) ==
LOC: EC 15:00
DX: J40 Bronchitis, not specified as acute or chronic (principal); J44.89 Other specified chronic obstructive pulmonary disease; Z88.0 Allergy status to penicillin; Z88.1 Allergy status to other antibiotic agents; Z91.041 Radiographic dye allergy status; Z88.8 Allergy status to other drugs, medicaments and biological substances; Z91.018 Allergy to other foods; Z91.09 Other allergy status, other than to drugs and biological substances
CPT/HCPCS: 36415; 71046; 80053; 83735; 83880; 84484; 85025; 85610; 85730; 99285

== ENCOUNTER → 2025-01-13 | Outpatient (CLI) | payer MEDICARE ==
[2025-01-13 14:54] LABS: Basophils # (A) 0.05 X 10*3/uL (0.00-0.10); Basophils % (A) 0.8 %; Eosinophils # (A) 0.16 X 10*3/uL (0.04-0.35); Eosinophils % (A) 2.4 %; HGB 13.7 g/dL (12.0-15.0); Lymphocytes # (A) 1.36 X 10*3/uL (0.90-5.00); Lymphocytes % (A) 20.4 %; MCH 30.2 pg (27.0-32.0); MCHC 31.9 g/dL (32.0-37.0); MCV 94.7 FL (80.0-97.0); Mean Platelet Volume 10.6 FL (9.5-12.2); NRBC Per 100 WBC 0 X 10*3/uL (0.00-0.01); Neutrophils # (A) 4.66 X 10*3/uL (1.80-7.70); Neutrophils % (A) 69.9 %; Platelet Count 191 X 10*3/uL (140-440); RBC 4.54 X 10*6/uL (4.10-5.20); RDW 13.1 % (11.5-14.5); WBC 6.66 X 10*3/uL (4.50-10.00)
[2025-01-13 15:33] LABS: ALT 24 U/L (8-44); AST 24 U/L (13-35); Albumin 4.4 g/dL (3.8-4.9); Albumin/Globulin Ratio 1.91 Ratio (1.60-3.17); Alkaline Phosphatase 120 U/L (41-126); BUN/Creat Ratio 25.86 Ratio (12.00-20.00); Blood Urea Nitrogen 18.1 mg/dL (9.0-27.0); Calcium 9.4 mg/dL (8.7-10.3); Carbon Dioxide 24.2 mmol/L (21.6-31.8); Chloride 106 mmol/L (96-109); Chol/HDL Ratio 4.61 Ratio; Globulin 2.3 g/dL (1.6-3.3); Glucose 93 mg/dL (70-110); LDL Cholesterol,Calculated 105.6 mg/dL (0.0-131.0); Potassium 4.4 mmol/L (3.5-5.5); Sodium 140 mmol/L (135-145); Total Bilirubin 0.6 mg/dL (0.3-1.2); Total Protein 6.7 g/dL (6.2-8.2)
[2025-01-13 18:57] LABS: Microalbumin Creatinine Ratio <27 mg/g Cr (0-30); Urine Creatinine 44.9 mg/dL (28.0-217.0)
== END | disposition home or self-care (01) ==
LOC: LABWHC1 10:08
PROVIDERS: ATTEND Internal Medicine Interventional Cardiology
DX: E78.2 Mixed hyperlipidemia (principal); E55.9 Vitamin D deficiency, unspecified; E11.21 Type 2 diabetes mellitus with diabetic nephropathy; E78.5 Hyperlipidemia, unspecified; I10 Essential (primary) hypertension
CPT/HCPCS: 36415; 80053; 80061; 82043; 82306; 82570; 83036; 85025